=== PATIENT | female | born 1940 | race Caucasian/White ===

== ENCOUNTER 2018-09-12 10:01 | Inpatient (IN) | payer OTHER, MEDICARE ==
--- OUTSIDE RECORDS SUMMARY | 2018-09-12 10:03 | XMS REPORT ---
:1940 [facility] Address [address] [place] [address] Care Team Providers Name Role Phone Unavailable Unavailable Unavailable Payers Payer Name Policy Type Policy Number Effective Date Expiration Date Problems This patient has no known problems. Allergies, Adverse Reactions, Alerts Allergy Allergy Status Severity Reaction(s) Onset Inactive Treating Comments Name Type Date Date Clinician No Known DA Active U 2018-06 Allergies - 00:00:0 0 No Known DA Active U 2018-06 Allergies - 00:00:0 0 No Known DA Active U 2018-02 Allergies - 00:00:0 0 Medications This patient has no known medications.
[2018-09-12] MEDS ORDERED: NA CHLORIDE 0.9% 2,000 ML ONE (10:31)
[2018-09-12] MEDS ORDERED: ACETAMINOPHEN 500 MG TAB ONE (10:31)
[2018-09-12 10:34] LABS: Absolute Lymphocytes (CBC) 1.4 K/uL (0.7-4.9); Absolute Monocytes 1.8 K/uL (0.1-1.3); Basophils % 0.5 % (0-1.3); Lymphocytes % 8.6 % (15.3-44.8); MPV 8.8 fL (7.6-11.3); Monocytes % 10.9 % (3.3-12.3); RBC Red Blood Cell Count 4.96 M/uL (3.86-4.86)
[2018-09-12] MEDS ORDERED: LEVALBUTEROL 1.25 MG/3 ML NEB ONE (10:40)
[2018-09-12 10:41] LABS: Protime INR 1.08
[2018-09-12] MEDS ORDERED: CEFTRIAXONE/SWI 1gm 1 GM/10 ML SYR ONE (10:41)
--- NOTE | 2018-09-12 10:45 | RAD REPORT ---
EXAM DESCRIPTION: RAD - Chest Single View - 09/12/2018 10:38 am CLINICAL HISTORY: Cough, shortness of breath COMPARISON: November 2016 TECHNIQUE: AP portable chest image was obtained 1023 hours . FINDINGS: Lungs are clear. Baseline interstitial pattern not clearly different from comparison. Kandace r regions are similar to comparison. Heart and vasculature are normal. No measurable pleural effusion and no pneumothorax. No acute bony abnormality seen. No acute aortic findings suspected. IMPRESSION: No acute cardiopulmonary process.
--- NOTE | 2018-09-12 11:12 | EDPHYS ---
Physician Documentation [facility] Name: Era Agustin Age: 78 yrs Sex: Female : 1940 Arrival Date: 09/12/2018 Time: 10:06 Bed 4 Private MD: Bro Mcmahon T ED Physician Chandan Underwood HPI: 09/12 10:26 This 78 yrs old Female presents to ER via Wheelchair with complaints of Flu kdr Symptoms. 10:26 The patient has been feeling ill for about a week. Started with runny nose and kdr progressed to more upper respiratory symptoms.. Onset: The symptoms/episode began/occurred gradually, 1 week(s) ago. Severity of symptoms: At their worst the symptoms were severe incapacitating in the emergency department the symptoms are worse. The patient has not experienced similar symptoms in the past. The patient has been recently seen by a physician: the patient's primary care provider. Historical: - Allergies: 10:19 No Known Allergies; ch - Home Meds: 10:19 lovastatin 20 mg Oral tab 1 tab once daily [Active]; enalapril maleate 10 mg Oral tab 1 ch tab once daily [Active]; levothyroxine 175 mcg tab 1 tab once daily [Active]; meloxicam 15 mg oral tab 1 tab once daily [Active]; Mestinon 60 mg Oral tab 1 tab [Active]; montelukast 10 mg oral tab 1 tab once daily [Active]; estradiol 0.5 mg Oral tab [Active]; omeprazole 40 mg Oral cpDR 1 cap once daily [Active]; Zyrtec 10 mg Oral chew 1 tab once daily [Active]; [place] 10-325 mg Oral tab 1 tab every 4 hours [Active]; Xanax 0.5 mg Oral tab 1 tab 3 times per day [Active]; - PMHx: 10:19 Hypothyroidism; Back pain; Hypertension; Hyperlipidemia; ch - PSHx: 10:19 Thyroidectomy; Hysterectomy; back; Appendectomy; Knee surgery; ch - Immunization history:: Adult Immunizations up to date. - Social history:: Smoking status: Patient/guardian denies using tobacco. - Ebola Screening: : Patient negative for fever greater than or equal to 101.5 degrees Fahrenheit, and additional compatible Ebola Virus Disease symptoms Patient denies exposure to infectious person Patient denies travel to an Ebola-affected area in the 21 days before illness onset No symptoms or risks identified at this time. ROS: 10:26 Constitutional: Negative for weight loss - has had fever and chills Eyes: Negative for kdr injury, pain, redness, and discharge, ENT: Negative for injury, pain, and discharge, Neck: Negative for injury, pain, and swelling, Cardiovascular: Negative for chest pain, palpitations, and edema, Abdomen/GI: Negative for abdominal pain, nausea, vomiting, diarrhea, and constipation, Back: Negative for injury and pain, : Negative for injury, bleeding, discharge, and swelling, MS/Extremity: Negative for injury and deformity, Skin: Negative for injury, rash, and discoloration, Psych: Negative for depression, anxiety, suicide ideation, homicidal ideation, and hallucinations, Allergy/Immunology: Negative for hives, rash, and allergies, Endocrine: Negative for neck swelling, polydipsia, polyuria, polyphagia, and marked weight changes, Hematologic/Lymphatic: Negative for swollen nodes, abnormal bleeding, and unusual bruising. 10:26 Respiratory: Positive for cough, with yellow sputum, dyspnea on exertion, shortness of breath, wheezing, Negative for hemoptysis, orthopnea, pleurisy. Exam: 10:26 Constitutional: This is a well developed, well nourished patient who is awake, alert, kdr and in mild distress. Head/Face: Normocephalic, atraumatic. Eyes: Pupils equal round and reactive to light, extra-ocular motions intact. Lids and lashes normal. Conjunctiva and sclera are non-icteric and not injected. Cornea within normal limits. Periorbital areas with no swelling, redness, or edema. Neck: Trachea midline, no thyromegaly or masses palpated, and no cervical lymphadenopathy. Supple, full range of motion without nuchal rigidity, or vertebral point tenderness. No Meningismus. Chest/axilla: Normal chest wall appearance and motion. Nontender with no deformity. No lesions are appreciated. Cardiovascular: Regular rate and rhythm with a normal S1 and S2. No gallops, murmurs, or rubs. Normal PMI, no JVD. No pulse deficits. Abdomen/GI: Soft, non-tender, with normal bowel sounds. No distension or tympany. No guarding or rebound. No evidence of tenderness throughout. Back: No spinal tenderness. No costovertebral tenderness. Full range of motion. Skin: Warm, dry with normal turgor. Normal color with no rashes, no lesions, and no evidence of cellulitis. MS/ Extremity: Pulses equal, no cyanosis. Neurovascular intact. Full, normal range of motion. Neuro: Awake and alert, GCS 15, oriented to person, place, time, and situation. Cranial nerves II-XII grossly intact. Motor strength 5/5 in all extremities. Sensory grossly intact. Cerebellar exam normal. Normal gait. Psych: Awake, alert, with orientation to person, place and time. Behavior, mood, and affect are within normal limits. 10:26 Respiratory: mild respiratory distress is noted, Respirations: labored breathing, that is mild, Breath sounds: rales, decreased breath sounds, are heard in the left posterior lower lobe, rhonchi, that are mild, are located in both bases, are heard diffusely. Vital Signs: 10:17 Temp 101.5(TE); hb 10:19 BP 116 / 78; Pulse 136; Resp 38; Pulse Ox 82% on R/A; Weight 80.74 kg; Height 5 ft. 6 ch in. (167.64 cm); Pain 0/10; 10:50 BP 129 / 70; Pulse 134; Resp 25 S; Pulse Ox 100% on Nebulizer Mask; jl7 11:43 BP 119 / 60; Pulse 127; Resp 21 S; Temp 98.9(O); Pulse Ox 97% on 2 lpm NC; jl7 12:57 BP 90 / 65; Pulse 112; Resp 21 S; Pulse Ox 96% on 2 lpm NC; jl7 13:15 BP 97 / 50; Pulse 106; Resp 21 S; Pulse Ox 96% on 2 lpm NC; jl7 10:19 Body Mass Index 28.73 (80.74 kg, 167.64 cm) ch 10:19 pt placed on NC ch MDM: 11:11 Patient medically screened. kdr 11:11 Data reviewed: vital signs, lab test result(s), radiologic studies. Counseling: I had a kdr detailed discussion with the patient and/or guardian regarding: the historical points, exam findings, and any diagnostic results supporting the discharge/admit diagnosis, lab results, radiology results, the need for further work-up and treatment in the hospital. 09/12 10:18 Order name: Basic Metabolic Panel kdr 09/12 10:18 Order name: Blood Culture Adult (2) kdr 09/12 10:18 Order name: CBC with Diff kdr 09/12 10:18 Order name: Ckmb kdr 09/12 10:18 Order name: CPK kdr 09/12 10:18 Order name: Lactate kdr 09/12 10:18 Order name: LFT's; Complete Time: : kdr 09/12 10:18 Order name: Lipase; Complete Time: : kdr 09/12 10:18 Order name: Procalcitonin kdr 09/12 10:18 Order name: Protime (+inr); Complete Time: 11: kdr 09/12 10:18 Order name: Ptt, Activated; Complete Time: : kdr 09/12 10:18 Order name: Troponin (emerg Dept Use Only); Complete Time: : kdr 09/12 10:18 Order name: Urine Microscopic Only kdr 09/12 10:18 Order name: Basic Metabolic Panel; Complete Time: 11: EDMS 09/12 10:18 Order name: Chest Single View XRAY; Complete Time: 11: kdr 09/12 10:18 Order name: Accucheck; Complete Time: : kdr 09/12 10:18 Order name: Cardiac monitoring; Complete Time: : kdr 09/12 10:18 Order name: EKG - Nurse/Tech; Complete Time: : kdr 09/12 10:18 Order name: IV Saline Lock - Large Bore; Complete Time: : kdr 09/12 10:18 Order name: Blood Culture EDMS 09/12 10:18 Order name: CBC with Automated Diff; Complete Time: 11: EDMS 09/12 10:19 Order name: CKMB Creatine Kinase MB; Complete Time: 11: EDMS 09/12 10:19 Order name: Creatine Phosphokinase; Complete Time: 11: EDMS 09/12 10:19 Order name: Lactate; Complete Time: 11: EDMS 09/12 10:24 Order name: Flu; Complete Time: 11: kdr 09/12 10:18 Order name: Labs collected and sent; Complete Time: : kdr 09/12 10:18 Order name: O2 Per Protocol; Complete Time: : kdr 09/12 10:18 Order name: O2 Sat Monitoring; Complete Time: 10:33 kdr Administered Medications: 10:31 Drug: Tylenol 1000 mg Route: PO; jl7 11:46 Follow up: Response: No adverse reaction; Temperature is decreased jl7 10:32 Drug: NS 0.9% (30 ml/kg) 30 ml/kg Route: IV; Rate: bolus; Site: right antecubital; jl7 11:46 Follow up: IV Status: Completed infusion jl7 10:35 Drug: Xopenex (3) 1.25 mg Route: Inhalation; jl7 11:00 Follow up: Response: No adverse reaction jl7 10:42 Drug: Rocephin 1 grams Route: IV; Rate: calculated rate; Site: right antecubital; jl7 10:45 Follow up: Response: No adverse reaction; IV Status: Completed infusion jl7 10:47 Not Given (Duplicate Order): Rocephin - (cefTRIAXone) 1 grams IVPB once over 30 mins; jl7 (mix in 50 mL NS) Disposition: 09/12/18 11:11 Hospitalization ordered by Do Najera for Observation. Preliminary diagnosis are Acute upper respiratory infection, unspecified, Fever, unspecified, Cough, Other sepsis. - Bed requested for Telemetry/MedSurg (observation). - Status is Observation. tw2 - Condition is Fair. - Problem is new. - Symptoms have improved. UTI on Admission? No Signatures: Dispatcher [employer] EDMS Magaly Dave RN Muriel Blanco ch RN Chandan Mccall MD MD [facility] Anastasia Nowak RN RN tw2 Domingo Garcia RN RN jl7 Corrections: (The following items were deleted from the chart) 12:50 11:11 Hospitalization Ordered by Do Najera MD for Observation. Preliminary diagnosis dw is Acute upper respiratory infection, unspecified; Fever, unspecified; Cough; Other sepsis. Bed requested for Telemetry/MedSurg (observation). Status is Observation. Condition is Fair. Problem is new. Symptoms have improved. UTI on Admission? No. kdr 13:25 12:50 09/12/2018 11:11 Hospitalization Ordered by Do Najera MD for Observation. tw2 Preliminary diagnosis is Acute upper respiratory infection, unspecified; Fever, unspecified; Cough; Other sepsis. Bed requested for Telemetry/MedSurg (observation). Status is Observation. Condition is Fair. Problem is new. Symptoms have improved. UTI on Admission? No. dw
--- NOTE | 2018-09-12 11:12 | ER ---
Nurse's Notes [facility] Name: Era Agustin Age: 78 yrs Sex: Female : 1940 Arrival Date: 09/12/2018 Time: 10:06 Bed 4 Private MD: Bor Mcmahon T Diagnosis: Acute upper respiratory infection, unspecified;Fever, unspecified;Cough;Other sepsis Presentation: 09/12 10:14 Presenting complaint: Patient states: Dr. Mcmahon sent me over, he thinks I have the flu ch or pneumonia. runny nose for the past week, cough, productive now, generally not feeling well. body aches. but today I just cant breathe. Transition of care: patient was not received from another setting of care. Onset of symptoms was September 06, 2018. Risk Assessment: Do you want to hurt yourself or someone else? Patient reports no desire to harm self or others. Initial Sepsis Screen: Does the patient meet any 2 criteria? RR > 20 per min. HR > 90 bpm. Yes Does the patient have a suspected source of infection? Yes: Productive cough/pneumonia If YES to both, name of provider notified: Chandan Underwood MD. Care prior to arrival: None. 10:14 Method Of Arrival: Wheelchair ch 10:14 Acuity: CLARENCE 2 ch Historical: - Allergies: 10:19 No Known Allergies; ch - Home Meds: 10:19 lovastatin 20 mg Oral tab 1 tab once daily [Active]; enalapril maleate 10 mg Oral tab 1 ch tab once daily [Active]; levothyroxine 175 mcg tab 1 tab once daily [Active]; meloxicam 15 mg oral tab 1 tab once daily [Active]; Mestinon 60 mg Oral tab 1 tab [Active]; montelukast 10 mg oral tab 1 tab once daily [Active]; estradiol 0.5 mg Oral tab [Active]; omeprazole 40 mg Oral cpDR 1 cap once daily [Active]; Zyrtec 10 mg Oral chew 1 tab once daily [Active]; [place] 10-325 mg Oral tab 1 tab every 4 hours [Active]; Xanax 0.5 mg Oral tab 1 tab 3 times per day [Active]; - PMHx: 10:19 Hypothyroidism; Back pain; Hypertension; Hyperlipidemia; ch - PSHx: 10:19 Thyroidectomy; Hysterectomy; back; Appendectomy; Knee surgery; ch - Immunization history:: Adult Immunizations up to date. - Social history:: Smoking status: Patient/guardian denies using tobacco. - Ebola Screening: : Patient negative for fever greater than or equal to 101.5 degrees Fahrenheit, and additional compatible Ebola Virus Disease symptoms Patient denies exposure to infectious person Patient denies travel to an Ebola-affected area in the 21 days before illness onset No symptoms or risks identified at this time. Screenin:17 Abuse screen: Denies threats or abuse. Denies injuries from another. Nutritional hb screening: No deficits noted. Tuberculosis screening: No symptoms or risk factors identified. Fall Risk Total Roche Fall Scale indicates Low Risk Score (25-44 pts). Fall prevention measures have been instituted. Side Rails Up X 2 Frequent Obs/Assesments occuring As available Patient and Family Educated on Fall Prevention Program and strategies. Assessment: 10:20 General: Appears distressed, uncomfortable, Behavior is calm, cooperative, appropriate jl7 for age. Pain: Complains of pain in diaphragm Quality of pain is described as "It's sore every time I cough.". Neuro: Level of Consciousness is awake, alert, obeys commands, Oriented to person, place, time, situation. Cardiovascular: Heart tones present Patient's skin is warm and dry. Respiratory: Reports shortness of breath on exertion cough that is productive, persistent pain with cough Airway is patent Respiratory effort is even, labored, Respiratory pattern is symmetrical, tachypnea Breath sounds are coarse bilaterally. Breath sounds with crackles Breath sounds with rales in left posterior lower lobe. GI: No signs and/or symptoms were reported involving the gastrointestinal system. : No signs and/or symptoms were reported regarding the genitourinary system. EENT: No signs and/or symptoms were reported regarding the EENT system. Derm: Skin is pink, warm \\T\\ dry. Musculoskeletal: No signs and/or symptoms reported regarding the musculoskeletal system. 11:43 Reassessment: No changes from previously documented assessment. Patient and/or family jl7 updated on plan of care and expected duration. Pain level reassessed. Patient is alert, oriented x 3, equal unlabored respirations, skin warm/dry/pink. Patient states symptoms have improved. 12:45 Reassessment: Patient appears in no apparent distress at this time. Patient and/or jl7 family updated on plan of care and expected duration. Pain level reassessed. Patient is alert, oriented x 3, equal unlabored respirations, skin warm/dry/pink. Vital Signs: 10:17 Temp 101.5(TE); hb 10:19 BP 116 / 78; Pulse 136; Resp 38; Pulse Ox 82% on R/A; Weight 80.74 kg; Height 5 ft. 6 ch in. (167.64 cm); Pain 0/10; 10:50 BP 129 / 70; Pulse 134; Resp 25 S; Pulse Ox 100% on Nebulizer Mask; jl7 11:43 BP 119 / 60; Pulse 127; Resp 21 S; Temp 98.9(O); Pulse Ox 97% on 2 lpm NC; jl7 12:57 BP 90 / 65; Pulse 112; Resp 21 S; Pulse Ox 96% on 2 lpm NC; jl7 13:15 BP 97 / 50; Pulse 106; Resp 21 S; Pulse Ox 96% on 2 lpm NC; jl7 10:19 Body Mass Index 28.73 (80.74 kg, 167.64 cm) ch 10:19 pt placed on NC ED Course: 10:06 Patient arrived in ED. sb2 10:06 Bro Mcmahon MD is Private Physician. sb2 10:09 Chandan Underwood MD is Attending Physician. kdr 10:16 Triage completed. ch 10:17 Arm band placed on. hb 10:19 Patient placed in an exam room, on a stretcher, on oxygen, on athletic monitor, on pulse ch oximetry. 10:20 Patient has correct armband on for positive identification. Placed in gown. Bed in low jl7 position. Call light in reach. Side rails up X 1. patient monitor on. Pulse ox on. NIBP on. 10:20 Initial lab(s) drawn, by co, sent to lab. First set of blood cultures drawn by co. dh3 Inserted saline lock: 20 gauge in right antecubital area, using aseptic technique. Blood collected. 10:29 Domingo Garcia, RONDA is Primary Nurse. jl7 10:35 X-ray completed. Portable x-ray completed in exam room. Patient tolerated procedure jb2 well. 10:36 Chest Single View XRAY In Process Unspecified. EDMS 10:41 Second set of blood cultures drawn by me. Inserted saline lock: 22 gauge in right dh3 forearm, using aseptic technique. Blood collected. 11:01 Notified ED physician of a critical lab result(s). Lactate 3.3. sg 11:10 Do Najera MD is Hospitalizing Provider. kdr 13:15 No provider procedures requiring assistance completed. Patient admitted, IV remains in jl7 place. intact, No redness/swelling at site. Administered Medications: 10:31 Drug: Tylenol 1000 mg Route: PO; jl7 11:46 Follow up: Response: No adverse reaction; Temperature is decreased jl7 10:32 Drug: NS 0.9% (30 ml/kg) 30 ml/kg Route: IV; Rate: bolus; Site: right antecubital; jl7 11:46 Follow up: IV Status: Completed infusion jl7 10:35 Drug: Xopenex (3) 1.25 mg Route: Inhalation; jl7 11:00 Follow up: Response: No adverse reaction jl7 10:42 Drug: Rocephin 1 grams Route: IV; Rate: calculated rate; Site: right antecubital; jl7 10:45 Follow up: Response: No adverse reaction; IV Status: Completed infusion jl7 10:47 Not Given (Duplicate Order): Rocephin - (cefTRIAXone) 1 grams IVPB once over 30 mins; jl7 (mix in 50 mL NS) Outcome: 11:11 Decision to Hospitalize by Provider. kdr 13:15 Admitted to Tele accompanied by tech, family with patient, via wheelchair, room 430, [facility] with chart, Report called to RONDA Becker 13:15 Condition: stable 13:15 Discharge instructions given to patient, Instructed on the need for admit, Demonstrated understanding of instructions. 13:25 Patient left the ED. tw2 Signatures: Dispatcher [employer] EDMS Magaly Dave RN RONDA Gilbert Gutierrez RN RN Chandan Underwood MD MD [facility] Matias Marte jb2 Swetha Maria RN RN Anastasia Nowak RN RN tw2 Domingo Garcia RN RN jl7 Ashwini aClvillo 3 Ayla Gutiérrez sb2
[2018-09-12 11:15] LABS: ALT/SGPT 20 U/L (12-78); AST/SGOT 30 U/L (15-37); Albumin 3.8 g/dL (3.4-5.0); Alkaline Phosphatase 79 U/L (45-117); BUN Blood Urea Nitrogen 15 mg/dL (7-18); Bicarbonate 24 mmol/L (21-32); Bilirubin Direct 0.2 mg/dL (0-0.2); Bilirubin Total 0.6 mg/dL (0.2-1.0); CKMB Creatine Kinase MB < 1.0 ng/mL (0.3-3.6); Creatine Phosphokinase 204 U/L (26-192); Glucose Level 153 mg/dL (74-106); Lipase 65 U/L (73-393); Potassium 3.6 mmol/L (3.5-5.1); Protein, Total 7.7 g/dL (6.4-8.2); Sodium Level 140 mmol/L (136-145); Troponin (Emerg Dept Use Only) < 0.02 ng/mL (0.0-0.045)
[2018-09-12] MEDS ORDERED: POTASSIUM CL SA 10 MEQ TAB PO ONE (13:47)
[2018-09-12] MEDS: IPRATROPIUM BROM 0.5MG/2.5ML NEB SCH ×2 (14:00→20:20)
[2018-09-12] MEDS: LEVALBUTEROL 1.25 MG/3 ML NEB NEB SCH ×2 (14:00→20:20)
[2018-09-12 14:02] VITALS: BMI 29.2
[2018-09-12] MEDS: NA CHLORIDE 0.9% 1,000 ML IV SCH (15:34)
[2018-09-12] MEDS ORDERED: ACETAMINOPHEN 500 MG TAB PO ONE (18:47)
[2018-09-12] MEDS: CETIRIZINE HCL 5 MG TABLET PO SCH (18:52)
[2018-09-12 20:10] LABS: Urine Bacteria <20 /HPF (<20); Urine Culture Reflex Order NOT NEEDED; Urine RBC <5 /HPF (NONE SEEN)
[2018-09-12] MEDS: PYRIDOSTIGMINE 60 MG TABLET PO SCH (21:58)
[2018-09-12] MEDS: ATORVASTATIN 10 MG TAB PO SCH (21:58)
[2018-09-12] MEDS: ALPRAZOLAM 1 MG TABLET PO SCH (23:15)
--- NOTE | 2018-09-12 23:16 | P.HP ---
Certification for Inpatient Patient admitted to: Inpatient With expected LOS: >2 Midnights Practitioner: I am a practitioner with admitting privileges, knowledge of patient current condition, hospital course, and medical plan of care. Services: Services provided to patient in accordance with Admission requirements found in Title 42 Section 412.3 of the Code of Federal Regulations Patient History Date of Service: 09/12/18 Reason for admission: sepsis, pneumonia History of Present Illness: Ms Agustin is a 78 years old woman with history of hypothyroidism, HTN, who start about 4 days ago with cough, productive with yellowish secretions, later SOB and subjective fever. In ER the patient was febrile 101.5, O2 Sat 82% on RA , BP on the lower side, she looks unconfortable. Lab work shows leukocytosis with elevated lactate and normal procalcitonin. Influenza negative. CXR radiology reported no acute infiltrate. Allergies No Known Drug Allergies Allergy (Verified 02/01/16 11:27) Unknown Home medications list reviewed: Yes Home Medications: Alprazolam [Alprazolam ER] 1 mg PO BEDTIME 04/05/12 Cetirizine HCl [Zyrtec] 10 mg PO DAILY 6PM 04/05/12 Enalapril Maleate 10 mg PO DAILY 04/05/12 Estradiol 0.5 mg PO DAILY 04/05/12 Lovastatin 20 mg PO DAILY 04/05/12 Meloxicam 15 mg PO DAILY 04/05/12 Omeprazole 40 mg PO DAILY 04/05/12 Pyridostigmine [place] [Mestinon*] 60 mg PO BID 04/05/12 Ca Carbonate/Vitamin D3/Vit K [Viactiv Tablet Chew] 2 each PO DAILY 02/01/16 Iron 27 mg PO DAILY 6PM 02/01/16 Montelukast [Singulair] 10 mg PO DAILY 6PM 02/01/16 Vit A/Vit C/Vit E/Zinc/Copper [Icaps Areds Softgel] 1 each PO DAILY 02/01/16 Hydrocodone 10/APAP 325 [[place] 10/325*] 0.5 tab PO QIDP PRN 09/12/18 Levothyroxine Sodium [Synthroid] 175 mcg PO DAILY 09/12/18 - Past Medical/Surgical History Has patient received pneumonia vaccine in the past: Yes Diabetic: No -: Hypertension -: GERD -: Anxiety -: Appendectomy 1968 -: Hysterectomy 1970 -: Thyroidectomy 1974 -: Back Surgery 1979 -: Bilateral Cataract Surgery 2007 -: Lapband 2014 -: Septoplasty 2016 -: Left Knee Replacement 2012 - Family History Family History: Reviewed- Non-Contributory - Social History Smoking Status: Former smoker Alcohol use: Yes CD- Drugs: No Caffeine use: Yes Place of Residence: Home Review of Systems 10-point ROS is otherwise unremarkable Physical Examination - Vital Signs Temperature: 98.9 F Blood Pressure: 138/55 Pulse: 78 Respirations: 18 Pulse Ox (%): 95 - Physical Exam General: Alert, In no apparent distress HEENT: Atraumatic, PERRLA, Mucous membr. moist/pink, EOMI, Sclerae nonicteric Neck: Supple, 2+ carotid pulse no bruit, No LAD, Without JVD or thyroid abnormality Respiratory: Normal air movement, Rhonchi/gurgles (bilateral) Cardiovascular: Regular rate/rhythm, Normal S1 S2 Gastrointestinal: Normal bowel sounds, No tenderness Musculoskeletal: No tenderness Integumentary: No rashes Neurological: Normal speech, Normal strength at 5/5 x4 extr, Normal tone, Normal affect Lymphatics: No axilla or inguinal lymphadenopathy - Studies Laboratory Data (last 24 hrs) 09/12/18 10:20: PT 12.7 H, INR 1.08, APTT 31.8 09/12/18 10:20: WBC 16.3 H, Hgb 15.4 H, Hct 46.0 H, Plt Count 255 09/12/18 10:20: Sodium 140, Potassium 3.6, BUN 15, Creatinine 1.22, Glucose 153 H, Total Bilirubin 0.6, AST 30, ALT 20, Alkaline Phosphatase 79, Lipase 65 L Microbiology Data (last 24 hrs): 09/12/18 10:24 Nasopharnyx Influenza Type A Antigen Screen - Final 09/12/18 10:24 Nasopharnyx Influenza Type B Antigen Screen - Final Assessment and Plan - Problems (Diagnosis) (1) Acute respiratory failure Current Visit: Yes Status: Acute Qualifiers: Respiratory failure complication: hypoxia Qualified Code(s): J96.01 - Acute respiratory failure with hypoxia (2) Pneumonia Current Visit: Yes Status: Acute Qualifiers: Pneumonia type: due to unspecified organism Laterality: unspecified laterality Lung location: unspecified part of lung Qualified Code(s): J18.9 - Pneumonia, unspecified organism (3) HTN (hypertension) Current Visit: Yes Status: Acute Qualifiers: Hypertension type: essential hypertension Qualified Code(s): I10 - Essential (primary) hypertension (4) Hypothyroidism Current Visit: Yes Status: Acute Qualifiers: Hypothyroidism type: unspecified Qualified Code(s): E03.9 - Hypothyroidism , unspecified (5) Sepsis Current Visit: Yes Status: Acute Qualifiers: Sepsis type: sepsis due to unspecified organism Qualified Code(s): A41.9 - Sepsis, unspecified organism - Plan Admit the patient due to sepsis, acute respiratory failure, pneumonia, already started on empiric antibiotic treatment, she has IV fluid running, blood and sputum cultures in process. - Advance Directives Does patient have a Living Will: No Does patient have a Durable POA for Healthcare: No - Code Status/Comfort Care Code Status Assessed: Yes Code Status: Full Code
[2018-09-13] MEDS: LEVALBUTEROL 1.25 MG/3 ML NEB NEB SCH ×4 (02:30→20:30)
[2018-09-13] MEDS: IPRATROPIUM BROM 0.5MG/2.5ML NEB SCH ×4 (02:30→20:30)
[2018-09-13] MEDS: NA CHLORIDE 0.9% 1,000 ML IV SCH ×3 (04:20→18:55)
[2018-09-13] MEDS: PANTOPRAZOLE 40MG TABLET PO SCH (05:31)
[2018-09-13] MEDS ORDERED: LEVOTHYROXINE SOD 0.075 MG TAB PO SCH (06:00)
[2018-09-13] MEDS ORDERED: LEVOTHYROXINE SOD 0.1 MG TAB PO SCH (06:00)
[2018-09-13 06:01] LABS: Absolute Lymphocytes (CBC) 1.1 K/uL (0.7-4.9); Absolute Monocytes 1.4 K/uL (0.1-1.3); Absolute Neutrophil 9.8 K/uL (1.8-8.0); Basophils % 0.2 % (0-1.3); MPV 8.9 fL (7.6-11.3); Monocytes % 11.5 % (3.3-12.3); RBC Red Blood Cell Count 4.06 M/uL (3.86-4.86)
[2018-09-13 06:20] LABS: Albumin 3.2 g/dL (3.4-5.0); Bilirubin Total 0.4 mg/dL (0.2-1.0); Phosphorus 1.6 mg/dL (2.5-4.9); Potassium 3.2 mmol/L (3.5-5.1); Protein, Total 6.5 g/dL (6.4-8.2)
--- NOTE | 2018-09-13 07:49 | EKG ---
Test Date: 2018-09-12 Test Time: 10:15:47 Test Deck Supervisor: SWG MEASUREMENT RESULTS: Intervals: Rate: 137 PA: 144 QRSD: 78 QT: 280 QTc: 422 Ambler: P: 71 PA: 144 QRS: -24 T: 78 INTERPRETIVE STATEMENTS: Sinus tachycardia Otherwise normal ECG Compared to ECG 02/01/2016 11:30:43 Sinus bradycardia no longer present Electronically Signed On 09-13-18 07:46:26 STAIN REMOVER by Krishan White
[2018-09-13] MEDS ORDERED: POTASSIUM 25 MEQ EFFERV TAB PO ONE (08:00)
[2018-09-13] MEDS ORDERED: ENALAPRIL 10 MG TAB PO SCH (09:00)
[2018-09-13] MEDS ORDERED: ESTRADIOL 0.5 MG PO SCH (09:00)
[2018-09-13] MEDS ORDERED: HOME MED 1 EA UNK (Levothyroxine Sodium [Synthroid] 175 MCG) PO SCH (09:00)
[2018-09-13] MEDS ORDERED: HOME MED 1 EA UNK (Lovastatin [Lovastatin] 20 MG) PO SCH (09:00)
[2018-09-13] MEDS: POTASS/SODIUM PHOSPHATE 1 PKT POWD.PACK PO SCH ×3 (09:43→11:59)
[2018-09-13] MEDS: PYRIDOSTIGMINE 60 MG TABLET PO SCH ×2 (09:43→22:14)
--- NOTE | 2018-09-13 11:27 | RAD REPORT ---
EXAM DESCRIPTION: RAD - Chest Pa And Lat (2 Views) - 09/13/2018 9:41 am CLINICAL HISTORY: pna management Chest pain. COMPARISON: Chest Single View dated 09/12/2018; Chest Pa And Lat (2 Views) dated 11/13/2016 FINDINGS: Left lung base posteriorly and the lingular lung opacities are present compatible with pne umonia. Findings appear mildly progressive since the comparative chest radiograph. The heart is mildl y prominent size. No displaced fractures.
[2018-09-13] MEDS: METOPROLOL TAR 25 MG TAB PO SCH (15:59)
[2018-09-13] MEDS: CEFTRIAXONE/SWI 1gm 1 GM/10 ML SYR IV SCH (16:05)
--- NOTE | 2018-09-13 17:46 | P.PN ---
Subjective Date of Service: 09/13/18 Primary Care Provider: Dr. Mcmahon Chief Complaint: sepsis, pneumonia Subjective: No new changes Patient seen and examined at bedside. No family at bedside. Chart reviewed and case discussed with nursing staff. Review of Systems 10-point ROS is otherwise unremarkable Physical Examination - Vital Signs Temperature: 97.9 F Blood Pressure: 120/60 Pulse: 100 Respirations: 18 Pulse Ox (%): 96 - Physical Exam General: Alert, Mild distress HEENT: Atraumatic, PERRLA, EOMI Neck: Supple, JVD not distended Respiratory: Clear to auscultation bilaterally, Normal air movement Cardiovascular: Normal S1 S2, Irregular heart rate/rhythm (Irregularly irregular ) Gastrointestinal: Normal bowel sounds, No tenderness Musculoskeletal: No tenderness Integumentary: No rashes Neurological: Normal speech, Normal tone, Normal affect Lymphatics: No axilla or inguinal lymphadenopathy Assessment And Plan - Current Problems (Diagnosis) (1) Atrial fibrillation Current Visit: Yes Status: Acute (2) Acute respiratory failure Current Visit: Yes Status: Acute Qualifiers: Respiratory failure complication: hypoxia Qualified Code(s): J96.01 - Acute respiratory failure with hypoxia (3) HTN (hypertension) Current Visit: Yes Status: Acute Qualifiers: Hypertension type: essential hypertension Qualified Code(s): I10 - Essential (primary) hypertension (4) Hypothyroidism Current Visit: Yes Status: Acute Qualifiers: Hypothyroidism type: unspecified Qualified Code(s): E03.9 - Hypothyroidism , unspecified (5) Pneumonia Current Visit: Yes Status: Acute Qualifiers: Pneumonia type: due to unspecified organism Laterality: unspecified laterality Lung location: unspecified part of lung Qualified Code(s): J18.9 - Pneumonia, unspecified organism (6) Sepsis Current Visit: Yes Status: Acute Qualifiers: Sepsis type: sepsis due to unspecified organism Qualified Code(s): A41.9 - Sepsis, unspecified organism - Plan Patient Problems: Sepsis (Acute) A41.9 improving Pneumonia (Acute) J18.9 Acute respiratory failure (Acute) J96.00 Improving. This is likely secondary to pneumonia Continue IV antibiotics, breathing treatments and oxygen as needed. Will continue to wean off oxygen. Atrial fibrillation (Acute) I48.91 New diagnoses. Patient without any history of heart disease or irregular heart beats. Check TSH. This could be secondary to his sepsis. Metoprolol for rate control Continue IV fluids HTN (hypertension) (Acute) I10 Blood pressure elevated. Will continue to adjust medications. Hypothyroidism (Acute) E03.9 Continue home medications. TSH/T4 pending DVT prophylaxis: Lovenox GI prophylaxis: Protonix Diet: Heart healthy Disposition: Pending symptomatic improvement. Continue IV fluids, IV antibiotics, breathing treatments and oxygen as needed.
[2018-09-13] MEDS ORDERED: HOME MED 1 EA UNK (Cetirizine Hcl [Zyrtec] 10 MG) PO SCH (18:00)
[2018-09-13] MEDS ORDERED: IRON 27 MG PO SCH (18:00)
[2018-09-13 18:31] LABS: Potassium 3.5 mmol/L (3.5-5.1); T4,Total 12.4 ug/dL (4.8-13.9); Thyroid Stimulating Hormone 0.263 uIU/mL (0.360-3.740)
[2018-09-13] MEDS: CETIRIZINE HCL 5 MG TABLET PO SCH (18:56)
[2018-09-13] MEDS: AZITHROMYCIN IV 500 MG in NA CHLORIDE 0.9% 250 ML IVPB SCH (18:56)
[2018-09-13] MEDS: MONTELUKAST 10 MG TAB PO SCH (19:06)
[2018-09-13] MEDS ORDERED: POTASSIUM CL SA 10 MEQ TAB PO ONE (20:02)
[2018-09-13] MEDS: ATORVASTATIN 10 MG TAB PO SCH (22:15)
[2018-09-13] MEDS: ALPRAZOLAM 1 MG TABLET PO SCH (22:15)
[2018-09-13] MEDS: ACETAMINOPHEN 325 MG TABLET PO PRN (22:18)
[2018-09-13] MEDS ORDERED: FUROSEMIDE 20 MG/ 2ML VIAL IV ONE (22:48)
[2018-09-13] MEDS ORDERED: MORPHINE 2 MG/ML SYR IV ONE (22:48)
[2018-09-13] MEDS ORDERED: METOPROLOL TARTRATE 5 MG/5 ML INJ IV STA (23:23)
[2018-09-14] MEDS: IPRATROPIUM BROM 0.5MG/2.5ML NEB SCH ×4 (01:53→20:00)
[2018-09-14] MEDS: LEVALBUTEROL 1.25 MG/3 ML NEB NEB SCH ×4 (01:53→20:00)
[2018-09-14] MEDS ORDERED: METOPROLOL TARTRATE 5 MG/5 ML INJ IV ONE ×2 (02:14→22:40)
[2018-09-14] MEDS ORDERED: MORPHINE 4 MG/ML SYR ONE (02:29)
[2018-09-14] MEDS ORDERED: METOPROLOL TARTRATE 5 MG/5 ML INJ IV STA ×2 (02:45→22:20)
[2018-09-14] MEDS ORDERED: METHYLPREDNISOLONE 125 MG INJ IV ONE (06:00)
[2018-09-14] MEDS ORDERED: ENOXAPARIN 80 MG/0.8 ML SQ ONE (06:00)
[2018-09-14] MEDS: PANTOPRAZOLE 40MG TABLET PO SCH (07:06)
[2018-09-14] MEDS: METOPROLOL TAR 25 MG TAB PO SCH ×2 (07:07→16:06)
[2018-09-14 07:10] LABS: Phosphorus 2.3 mg/dL (2.5-4.9); Potassium 3.5 mmol/L (3.5-5.1)
[2018-09-14 07:20] LABS: Magnesium 2.1 mg/dL (1.8-2.4); Thyroid Stimulating Hormone 0.246 uIU/mL (0.360-3.740)
[2018-09-14] MEDS ORDERED: POTASSIUM 25 MEQ EFFERV TAB PO ONE (09:02)
[2018-09-14] MEDS: PYRIDOSTIGMINE 60 MG TABLET PO SCH ×2 (12:05→21:32)
[2018-09-14] MEDS: POTASS/SODIUM PHOSPHATE 1 PKT POWD.PACK PO SCH ×3 (12:06→14:15)
--- NOTE | 2018-09-14 12:14 | RAD REPORT ---
EXAM DESCRIPTION: Dk Single View09/13/2018 11:17 pm CLINICAL HISTORY: Shortness of breath COMPARISON: September 13 FINDINGS: Mild bibasilar lung opacities. Upper lobes appear clear. The heart is normal size IMPRESSION: Mild bibasilar lung opacities may represent pneumonia
--- NOTE | 2018-09-14 12:14 | RAD REPORT ---
EXAM DESCRIPTION: CT - Thorax W/ Con - 09/14/2018 11:27 am CLINICAL HISTORY: Shortness of breath COMPARISON: None TECHNIQUE: Computed axial tomography of the chest was obtained. 100 cc Isovue 300 was administered i ntravenously. All CT scans are performed using dose optimization technique as appropriate and may include automated exposure control or mA/KV adjustment according to patient size. FINDINGS: Mild right lower lobe consolidation. Minimal tree-in-bud opacities within the left lingula . Minimal left lower lobe opacities Mild mediastinal and hilar lymphadenopathy A pleural effusion is not present. A pericardial effusion is not seen. IMPRESSION: Mild bilateral pulmonary opacities likely represent pneumonia Mild mediastinal and hilar lymphadenopathy likely reactive in nature. Follow up CT chest in 3 months is recommended to assess stability/ resolution
--- NOTE | 2018-09-14 12:37 | P.PN ---
Subjective Date of Service: 09/14/18 Primary Care Provider: Dr. Mcmahon Chief Complaint: sepsis, pneumonia Subjective: No C/O voiced, Improving Patient seen and examined at bedside. No family at bedside. Chart reviewed and case discussed with nursing staff. Reports breathing better Continues to be in AFib. Denies any chest pain, palpitations, dizziness, vision changes, speech changes Review of Systems 10-point ROS is otherwise unremarkable Physical Examination - Vital Signs Temperature: 99.2 F Blood Pressure: 132/74 Pulse: 129 Respirations: 18 Pulse Ox (%): 95 - Physical Exam General: Alert, In no apparent distress, Oriented x3 HEENT: Atraumatic, PERRLA, EOMI Neck: Supple, JVD not distended Respiratory: Clear to auscultation bilaterally, Normal air movement Cardiovascular: Irregular heart rate/rhythm (Irregularly irregular) Gastrointestinal: Normal bowel sounds, No tenderness Musculoskeletal: No tenderness Integumentary: No rashes Neurological: Normal speech, Normal tone, Normal affect Lymphatics: No axilla or inguinal lymphadenopathy Assessment And Plan - Current Problems (Diagnosis) (1) Atrial fibrillation Current Visit: Yes Status: Acute (2) Acute respiratory failure Current Visit: Yes Status: Acute Qualifiers: Respiratory failure complication: hypoxia Qualified Code(s): J96.01 - Acute respiratory failure with hypoxia (3) HTN (hypertension) Current Visit: Yes Status: Acute Qualifiers: Hypertension type: essential hypertension Qualified Code(s): I10 - Essential (primary) hypertension (4) Hypothyroidism Current Visit: Yes Status: Acute Qualifiers: Hypothyroidism type: unspecified Qualified Code(s): E03.9 - Hypothyroidism , unspecified (5) Pneumonia Current Visit: Yes Status: Acute Qualifiers: Pneumonia type: due to unspecified organism Laterality: unspecified laterality Lung location: unspecified part of lung Qualified Code(s): J18.9 - Pneumonia, unspecified organism (6) Sepsis Current Visit: Yes Status: Acute Qualifiers: Sepsis type: sepsis due to unspecified organism Qualified Code(s): A41.9 - Sepsis, unspecified organism - Plan Patient Problems: Sepsis (Acute) A41.9 improving Pneumonia (Acute) J18.9 Acute respiratory failure (Acute) J96.00 Improving. This is likely secondary to pneumonia Continue IV antibiotics, breathing treatments and oxygen as needed. Will continue to wean off oxygen. CT scan done, consistent with bilateral pneumonia. Atrial fibrillation (Acute) I48.91 New diagnoses. Patient without any history of heart disease or irregular heart beats. TSH low. This could be secondary to the sepsis. Metoprolol for rate control Continue IV fluids Cardiology consulted HTN (hypertension) (Acute) I10 Stable, Will continue to monitor and adjust medications as needed. Hypothyroidism (Acute) E03.9 Continue home medications. TSH low. Will decrease Synthroid dosage 100 mcg daily. DVT prophylaxis: Lovenox GI prophylaxis: Protonix Diet: Heart healthy Disposition: Pending symptomatic improvement. Continue IV fluids, IV antibiotics, breathing treatments and oxygen as needed.
--- NOTE | 2018-09-14 13:54 | EKG ---
Test Date: 2018-09-14 Test Time: 02:28:48 Fixed Assets Accountant: NORA MEASUREMENT RESULTS: Intervals: Rate: 129 [place]: QRSD: 76 QT: 326 QTc: 477 [place]: P: TX: QRS: -9 T: 61 INTERPRETIVE STATEMENTS: Atrial fibrillation with rapid ventricular response Low voltage QRS Cannot rule out Anterior infarct, age undetermined Abnormal ECG Compared to ECG 09/13/2018 07:46:32 Myocardial infarct finding now present ST (T wave) deviation no longer present Electronically Signed On 09-14-18 13:53:35 CARE TRAINER by Krishan White
--- NOTE | 2018-09-14 13:59 | EKG ---
Test Date: 2018-09-13 Test Time: 07:46:32 Analytical Clerk: SANDY MEASUREMENT RESULTS: Intervals: Rate: 147 IN: QRSD: 86 QT: 312 QTc: 488 [place]: P: IN: QRS: -10 T: 94 INTERPRETIVE STATEMENTS: Atrial fibrillation with rapid ventricular response Low voltage QRS Nonspecific ST and T wave abnormality, probably digitalis effect Abnormal ECG Compared to ECG 09/12/2018 10:15:47 Low QRS voltage now present ST (T wave) deviation now present Sinus tachycardia no longer present Electronically Signed On 09-14-18 13:54:44 SPORTS BOOK SERVER by Krishan White
[2018-09-14] MEDS: CEFTRIAXONE/SWI 1gm 1 GM/10 ML SYR IV SCH (16:06)
[2018-09-14] MEDS: AZITHROMYCIN IV 500 MG in NA CHLORIDE 0.9% 250 ML IVPB SCH (17:04)
[2018-09-14] MEDS: CETIRIZINE HCL 5 MG TABLET PO SCH (17:04)
[2018-09-14] MEDS: MONTELUKAST 10 MG TAB PO SCH (17:06)
[2018-09-14] MEDS: ATORVASTATIN 10 MG TAB PO SCH (21:32)
[2018-09-14] MEDS: ALPRAZOLAM 1 MG TABLET PO SCH (21:32)
[2018-09-15] MEDS: LEVALBUTEROL 1.25 MG/3 ML NEB NEB SCH ×4 (02:00→20:13)
[2018-09-15] MEDS: IPRATROPIUM BROM 0.5MG/2.5ML NEB SCH ×4 (02:00→20:13)
[2018-09-15] MEDS: METOPROLOL TAR 25 MG TAB PO SCH ×2 (06:04→18:39)
[2018-09-15] MEDS: LEVOTHYROXINE SOD 0.1 MG TAB PO SCH (06:04)
[2018-09-15] MEDS: ACETAMINOPHEN 325 MG TABLET PO PRN (06:10)
[2018-09-15 06:20] LABS: Phosphorus 3.9 mg/dL (2.5-4.9); Potassium 3.3 mmol/L (3.5-5.1)
[2018-09-15] MEDS ORDERED: POTASSIUM 25 MEQ EFFERV TAB PO ONE (09:00)
[2018-09-15] MEDS: PANTOPRAZOLE 40MG TABLET PO SCH (09:19)
[2018-09-15] MEDS: PYRIDOSTIGMINE 60 MG TABLET PO SCH ×2 (09:20→20:44)
[2018-09-15 09:58] LABS: Absolute Lymphocytes (CBC) 1.3 K/uL (0.7-4.9); Absolute Monocytes 1.1 K/uL (0.1-1.3); Absolute Neutrophil 13.2 K/uL (1.8-8.0); Basophils % 0.1 % (0-1.3); Hematocrit 39.3 % (36.0-45.0); Lymphocytes % 8.2 % (15.3-44.8); MPV 9.2 fL (7.6-11.3); Monocytes % 7.1 % (3.3-12.3); RBC Red Blood Cell Count 4.31 M/uL (3.86-4.86)
[2018-09-15] MEDS: CEFTRIAXONE/SWI 1gm 1 GM/10 ML SYR IV SCH (17:09)
[2018-09-15] MEDS: MONTELUKAST 10 MG TAB PO SCH (17:09)
[2018-09-15] MEDS: CETIRIZINE HCL 5 MG TABLET PO SCH (17:09)
[2018-09-15] MEDS: AZITHROMYCIN IV 500 MG in NA CHLORIDE 0.9% 250 ML IVPB SCH (17:10)
--- NOTE | 2018-09-15 19:12 | P.PN ---
Subjective Date of Service: 09/15/18 Primary Care Provider: Dr. Mcmahon Chief Complaint: sepsis, pneumonia Subjective: Improving Patient seen and examined at bedside. No family at bedside. Chart reviewed and case discussed with nursing staff. Reports breathing better Converted to Normal sinus rhythm. Denies any chest pain, palpitations, dizziness, vision changes, speech changes Review of Systems 10-point ROS is otherwise unremarkable Physical Examination - Vital Signs Temperature: 98.3 F Blood Pressure: 124/61 Pulse: 98 Respirations: 17 Pulse Ox (%): 94 - Physical Exam General: Alert, In no apparent distress, Oriented x3 HEENT: Atraumatic, PERRLA, EOMI Neck: Supple, JVD not distended Respiratory: Crackles/rales, Expiratory wheezes Cardiovascular: Regular rate/rhythm, Normal S1 S2 Gastrointestinal: Normal bowel sounds, No tenderness Musculoskeletal: No tenderness Integumentary: No rashes Neurological: Normal speech, Normal tone, Normal affect Lymphatics: No axilla or inguinal lymphadenopathy Assessment And Plan - Current Problems (Diagnosis) (1) Atrial fibrillation Current Visit: Yes Status: Acute (2) Acute respiratory failure Current Visit: Yes Status: Acute Qualifiers: Respiratory failure complication: hypoxia Qualified Code(s): J96.01 - Acute respiratory failure with hypoxia (3) HTN (hypertension) Current Visit: Yes Status: Acute Qualifiers: Hypertension type: essential hypertension Qualified Code(s): I10 - Essential (primary) hypertension (4) Hypothyroidism Current Visit: Yes Status: Acute Qualifiers: Hypothyroidism type: unspecified Qualified Code(s): E03.9 - Hypothyroidism , unspecified (5) Pneumonia Current Visit: Yes Status: Acute Qualifiers: Pneumonia type: due to unspecified organism Laterality: unspecified laterality Lung location: unspecified part of lung Qualified Code(s): J18.9 - Pneumonia, unspecified organism (6) Sepsis Current Visit: Yes Status: Acute Qualifiers: Sepsis type: sepsis due to unspecified organism Qualified Code(s): A41.9 - Sepsis, unspecified organism - Plan Patient Problems: Sepsis (Acute) A41.9 improving Pneumonia (Acute) J18.9 Acute respiratory failure (Acute) J96.00 Improving. This is likely secondary to pneumonia Continue IV antibiotics, breathing treatments and oxygen as needed. Will continue to wean off oxygen. CT scan done, consistent with bilateral pneumonia. Atrial fibrillation (Acute) I48.91: Converted back to NSR New diagnoses. Patient without any history of heart disease or irregular heart beats. TSH low. This could be secondary to the sepsis. Metoprolol for rate control Continue IV fluids Cardiology consulted. ECHO pending. HTN (hypertension) (Acute) I10 Stable, Will continue to monitor and adjust medications as needed. Hypothyroidism (Acute) E03.9 Continue home medications. TSH low. Will decrease Synthroid dosage 100 mcg daily. DVT prophylaxis: Lovenox GI prophylaxis: Protonix Diet: Heart healthy Disposition: Pending symptomatic improvement. Continue IV fluids, IV antibiotics, breathing treatments and oxygen as needed.
[2018-09-15] MEDS: ATORVASTATIN 10 MG TAB PO SCH (20:44)
[2018-09-15] MEDS: ALPRAZOLAM 1 MG TABLET PO SCH (20:44)
--- NOTE | 2018-09-15 22:08 | PN ---
Ms. Agustin was admitted by Dr. Najera on 09/12/2018 for pneumonia, developed atrial fibrillation. I s aw her on 09/14/2018. She was getting a low-dose beta-silvino. Today, she is back in sinus rhythm. An echocardiogram is pending. I think her atrial fibrillation may have been caused by her pneumonia . She does have a history of hypertension and dyslipidemia, and she definitely has a high CHADS scor e. Since she developed this with her pneumonia, we may just observe her and put her on aspirin rathe r than an anticoagulant for now low, but I will see what her echocardiogram shows prior to making fin al decisions. I will make sure she will see us in the office after she goes home. She will need a s tress test as an outpatient. DEVANG/FAUSTO Voice ID: [id number] Report ID: [id number]
--- NOTE | 2018-09-15 22:38 | CON ---
Date of Consultation: 09/14/[address] Najera on 09/12/2018. I saw the patient on 09/14/2018. Reason For Consultation: Atrial fibrillation. History Of Present Illness: Ms. Agustin is a 78-year-old white woman with no cardiac history in the p ast, has a history of hypertension, dyslipidemia, and hypothyroidism, was admitted for pneumonia by c hest x-ray and CT scan, and was actually on telemetry, and went into atrial fibrillation from sinus r hythm without any symptoms from her atrial fibrillation. No hemodynamic compromise. Past Medical History: As stated above. Allergies: NONE. Review of Systems: Negative. Social History: Negative. Family History: Negative. Medications: At home include Xanax, enalapril, Synthroid, lovastatin, and Prilosec. The patient sees Dr. Mcmahon as a primary care. Physical Examination: Vital Signs: Stable. She was in atrial fibrillation at a rate of 85. Afebrile. HEENT: Negative. Neck: Supple with no bruit. Chest: Clear. Cardiac: Revealed atrial fibrillation. Abdomen: Benign. Extremities: Revealed no clubbing, cyanosis, or edema. Diagnostic Data: Fairly unremarkable except for the pneumonia. Impression And Plan: 1.Paroxysmal atrial fibrillation, may have been due to hypoxia and pneumonia. 2.Anxiety, on Xanax. 3.Enalapril for hypertension. 4.Hypothyroidism, on Synthroid. 5.Dyslipidemia, on lovastatin. 6.Gastroesophageal reflux disease, on Prilosec. I agree with an echocardiogram. I think we can have her on a low-dose beta silvino and an aspirin. She has a rather high CHADS score with hypertension, dyslipidemia in her age, and may be a candidate for some of the new anticoagulants. However, since this happened with pneumonia, we may have to just observe her and make sure she does not have a recurrence. I will see what the echocardiogram shows prior to making decision on anticoagulation. Certainly down the road depending what her rhythm does, we could always get an event monitor and see what she does as an outpatient. She will also need an outpatient stress test eventually, and I will make arrangements for all that. DEVANG/FAUSTO Voice ID: [id number] Report ID: [id number]
[2018-09-16] MEDS: LEVALBUTEROL 1.25 MG/3 ML NEB NEB SCH ×4 (03:16→20:10)
[2018-09-16] MEDS: IPRATROPIUM BROM 0.5MG/2.5ML NEB SCH ×4 (03:16→20:10)
[2018-09-16 04:20] LABS: RBC Red Blood Cell Count 4.49 M/uL (3.86-4.86)
[2018-09-16 04:21] LABS: Absolute Lymphocytes (CBC) 3.2 K/uL (0.7-4.9); Absolute Monocytes 1.2 K/uL (0.1-1.3); Absolute Neutrophil 8.4 K/uL (1.8-8.0); Basophils % 0.7 % (0-1.3); Eosinophils % 0.4 % (0-4.4); Lymphocytes % 24.6 % (15.3-44.8); MPV 9.1 fL (7.6-11.3)
[2018-09-16 04:42] LABS: Potassium 3.5 mmol/L (3.5-5.1)
[2018-09-16] MEDS: PANTOPRAZOLE 40MG TABLET PO SCH (05:01)
[2018-09-16] MEDS: METOPROLOL TAR 25 MG TAB PO SCH ×2 (05:01→18:05)
[2018-09-16] MEDS: LEVOTHYROXINE SOD 0.1 MG TAB PO SCH (05:02)
[2018-09-16 05:34] LABS: Blood Morphology Comment NOT SEEN (NOT SEEN); Platelet Estimate ADEQ
[2018-09-16] MEDS ORDERED: POTASSIUM 25 MEQ EFFERV TAB PO ONE (07:34)
[2018-09-16] MEDS: PYRIDOSTIGMINE 60 MG TABLET PO SCH ×2 (08:22→21:24)
[2018-09-16] MEDS: ACETAMINOPHEN 325 MG TABLET PO PRN (08:23)
--- NOTE | 2018-09-16 16:08 | ECHO ---
HEIGHT: 5 ft 4 in WEIGHT: 170 lb 0 oz DATE OF STUDY: 09/16/[address]: Simi Ching MD 2-DIMENSIONAL: YES M.MODE: YES DOPPLER: YES COLOR FLOW: YES TDS: NO PORTABLE: NO DEFINITY: NO BUBBLE STUDY: NO DIAGNOSIS: ATRIAL FIBRILLATION CARDIAC HISTORY: CATHERIZATION: SURGERY: PROSTHETIC VALVE: PACEMAKER: MEASUREMENTS (cm) DIASTOLIC (NORMALS) SYSTOLIC (NORMALS) IVSd 1.0 (0.6-1.2) LA Diam 3.5 (1.9-4.0) LVEF 68% LVIDd 4.8 (3.5-5.7) LVIDs 3.0 (2.0-3.5) %FS 38% LVPWd 1.1 (0.6-1.2) Ao Diam 2.8 (2.0-3.7) 2 DIMENSIONAL ASSESSMENT: RIGHT ATRIUM: NORMAL LEFT ATRIUM: NORMAL RIGHT VENTRICLE: NORMAL LEFT VENTRICLE: NORMAL TRICUSPID VALVE: NORMAL MITRAL VALVE: NORMAL PULMONIC VALVE: NORMAL AORTIC VALVE: NORMAL PERICARDIAL EFFUSION: NONE AORTIC ROOT: NORMAL LEFT VENTRICULAR WALL MOTION: NORMAL. DOPPLER/COLOR FLOW: MILD TRICUSPID REGURGITATION. NORMAL RIGHT VENTRICULAR SYSTOLIC PRESSURE. COMMENTS: NORMAL 2D ECHOCARDIOGRAM WITH DOPPLER. MILD TRICUSPID REGURGITATION. TECHNOLOGIST: FRANSISCA SURESH
[2018-09-16] MEDS: CETIRIZINE HCL 5 MG TABLET PO SCH (18:04)
[2018-09-16] MEDS: CEFTRIAXONE/SWI 1gm 1 GM/10 ML SYR IV SCH (18:04)
[2018-09-16] MEDS: MONTELUKAST 10 MG TAB PO SCH (18:05)
[2018-09-16] MEDS: AZITHROMYCIN IV 500 MG in NA CHLORIDE 0.9% 250 ML IVPB SCH (18:05)
--- NOTE | 2018-09-16 18:58 | P.PN ---
Subjective Date of Service: 09/16/18 Primary Care Provider: Dr. Mcmahon Chief Complaint: sepsis, pneumonia Patient seen and examined at bedside. No family at bedside. Chart reviewed and case discussed with nursing staff. Reports breathing better Continues to be in Normal sinus rhythm. Denies any chest pain, palpitations, dizziness, vision changes, speech changes Review of Systems 10-point ROS is otherwise unremarkable Physical Examination - Vital Signs Temperature: 97.4 F Blood Pressure: 149/77 Pulse: 91 Respirations: 18 Pulse Ox (%): 96 - Physical Exam General: Alert, In no apparent distress, Oriented x3 HEENT: Atraumatic, PERRLA, EOMI Neck: Supple, JVD not distended Respiratory: Normal air movement, Crackles/rales Cardiovascular: Regular rate/rhythm, Normal S1 S2 Gastrointestinal: Normal bowel sounds, No tenderness Musculoskeletal: No tenderness Integumentary: No rashes Neurological: Normal speech, Normal tone, Normal affect Lymphatics: No axilla or inguinal lymphadenopathy Assessment And Plan - Current Problems (Diagnosis) (1) Atrial fibrillation Current Visit: Yes Status: Acute (2) Acute respiratory failure Current Visit: Yes Status: Acute Qualifiers: Respiratory failure complication: hypoxia Qualified Code(s): J96.01 - Acute respiratory failure with hypoxia (3) HTN (hypertension) Current Visit: Yes Status: Acute Qualifiers: Hypertension type: essential hypertension Qualified Code(s): I10 - Essential (primary) hypertension (4) Hypothyroidism Current Visit: Yes Status: Acute Qualifiers: Hypothyroidism type: unspecified Qualified Code(s): E03.9 - Hypothyroidism , unspecified (5) Pneumonia Current Visit: Yes Status: Acute Qualifiers: Pneumonia type: due to unspecified organism Laterality: unspecified laterality Lung location: unspecified part of lung Qualified Code(s): J18.9 - Pneumonia, unspecified organism (6) Sepsis Current Visit: Yes Status: Acute Qualifiers: Sepsis type: sepsis due to unspecified organism Qualified Code(s): A41.9 - Sepsis, unspecified organism - Plan Patient Problems: Sepsis (Acute) A41.9 improving Pneumonia (Acute) J18.9 Acute respiratory failure (Acute) J96.00 Improving. This is likely secondary to pneumonia Continue IV antibiotics, breathing treatments and oxygen as needed. Will continue to wean off oxygen. CT scan done, consistent with bilateral pneumonia. Atrial fibrillation (Acute) I48.91: Converted back to NSR New diagnoses. Patient without any history of heart disease or irregular heart beats. TSH low. This could be secondary to the sepsis. Metoprolol for rate control Continue IV fluids Cardiology consulted. Recommendations appreciated. ECHO normal, with EF of 68% HTN (hypertension) (Acute) I10 Stable, Will continue to monitor and adjust medications as needed. Hypothyroidism (Acute) E03.9 Continue home medications. TSH low. Continue decreased dosage of Synthroid dosage 100 mcg daily. DVT prophylaxis: Lovenox GI prophylaxis: Protonix Diet: Heart healthy Disposition: Pending symptomatic improvement. Continue IV fluids, IV antibiotics, breathing treatments and oxygen as needed.
[2018-09-16] MEDS: ATORVASTATIN 10 MG TAB PO SCH (21:24)
[2018-09-16] MEDS: ALPRAZOLAM 1 MG TABLET PO SCH (21:24)
[2018-09-17] MEDS: IPRATROPIUM BROM 0.5MG/2.5ML NEB SCH ×2 (02:30→07:55)
[2018-09-17] MEDS: LEVALBUTEROL 1.25 MG/3 ML NEB NEB SCH ×2 (02:30→07:55)
[2018-09-17 04:30] LABS: Magnesium 2.2 mg/dL (1.8-2.4); Phosphorus 4.5 mg/dL (2.5-4.9); Potassium 3.8 mmol/L (3.5-5.1)
[2018-09-17] MEDS ORDERED: POTASSIUM CL SA 10 MEQ TAB PO ONE (04:46)
[2018-09-17] MEDS: PANTOPRAZOLE 40MG TABLET PO SCH (05:52)
[2018-09-17] MEDS: LEVOTHYROXINE SOD 0.1 MG TAB PO SCH (05:53)
[2018-09-17] MEDS: METOPROLOL TAR 25 MG TAB PO SCH (05:53)
[2018-09-17] MEDS: PYRIDOSTIGMINE 60 MG TABLET PO SCH (08:58)
[2018-09-17] MEDS: ACETAMINOPHEN 325 MG TABLET PO PRN (09:37)
[2018-09-17 13:08] VITALS: O2SAT 92
[2018-09-17 13:21] VITALS: BP 142/71; TEMP 98.3
--- NOTE | 2018-09-18 04:17 | DS ---
Date of Discharge: 09/17/2018 Real Estate Processor: Krishan White M.D., with Cardiology. Admitting Diagnoses: 1. Acute respiratory failure with hypoxia. 2. Pneumonia. 3. Essential hypertension. 4. Hypothyroidism. 5. Sepsis. Discharge Diagnoses: 1. Sepsis. 2. Pneumonia, bilateral, right middle lobe and left lower lobe. 3. Atrial fibrillation, now back to sinus rhythm. 4. Acute respiratory failure with hypoxia. 5. Essential hypertension. 6. Hypothyroidism. 7. Gastroesophageal reflux disease without esophagitis. 8. Generalized anxiety disorder. Hospital Course: The patient is a 78-year-old female who came in with cough and sepsis, found to be febrile with respiratory distress. The patient had elevated white count. She was found to be septic secondary to pneumonia. The patient was started on IV antibiotics and responded well. She did have some mild electrolyte abnormalities which were corrected. The patient's lactate level was initially elevated at 4.8, did normalize. Procalcitonin was negative. The patient's blood cultures remained negative. Her influenza screen was also negative. Sputum culture did not show any growth. During her hospitalization while she was hypoxic in respiratory distress secondary to pneumonia, she developed atrial fibrillation which was paroxysmal. It the patient was seen by Cardiology. She was recommended to be on aspirin only at this time due to the transitory nature of the atrial fibrillation. No previous history. Echocardiogram was done, which showed EF of 68% and mild tricuspid regurgitation. The patient does have high CHADS-VASc score due to her age and hypertension. However, the patient is on meloxicam for her chronic arthritis, and the patient is not interested in long-term chronic anticoagulation with Coumadin or newer agents. However, she is willing to follow up with Cardiology as an outpatient and discuss with Cardiology regarding use of full-dose anticoagulation for now. The patient will be on aspirin, and she is currently back in sinus rhythm. Overall, the patient did well over the course of the hospital stay. Her cough improved, however, not completely resolved. She was still having some sputum production. The patient was then cleared for discharge from sfdc consultant's standpoint. The patient was able to ambulate without difficulty. No further hypoxia. The patient was afebrile. The patient was then discharged home in a stable condition. Activity: As tolerated. No strenuous activity. Followup: Follow up with primary care physician 2 to 3 days. Follow up with casket inspector, Dr. White, in 2 weeks. Return to ER for worsening condition. Diet: Heart healthy. Medications: As per medication reconciliation list. The patient's dose of Synthroid will be reduced. Will be started on Lopressor. The patient will finish a course of antibiotics for her pneumonia. Physical Examination: General: Awake, alert, oriented x3. Elderly female, in no acute distress. CV: S1, S2. Regular rate and rhythm. Peripheral pulses present. Respiratory: Moving air well bilaterally. No wheezing. Gastrointestinal: Abdomen is soft, nontender, nondistended. Positive bowel sounds. Extremities: No clubbing, cyanosis, or edema. Neurologic: Nonfocal. Code status addressed Total time spent DC pt was 32 minutes. CHRISTIN Voice ID: [id number] Report ID: [id number] MTDD
== END 2018-09-17 13:30 | disposition home or self-care (01) | DRG 871 ==
LOC: ER 10:01 → ERHOLD 11:58 → 4TH 13:07
PROVIDERS: ADMIT Family Medicine; ATTEND Family Medicine
DX: A41.9 Sepsis, unspecified organism (principal); J18.9 Pneumonia, unspecified organism; J96.01 Acute respiratory failure with hypoxia; R65.20 Severe sepsis without septic shock; I10 Essential (primary) hypertension; E03.9 Hypothyroidism, unspecified; K21.9 Gastro-esophageal reflux disease without esophagitis; F41.1 Generalized anxiety disorder; I48.0 Paroxysmal atrial fibrillation; Z87.891 Personal history of nicotine dependence
CPT/HCPCS: 36415; 71045; 71046; 71260; 80048; 80053; 80076; 81015; 82550; 82553; 82962; 83605; 83690; 83735; 84100; 84132; 84145; 84436; 84439; 84443; 84484; 85025; 85610; 85730; 87040; 87070; 87205; 87804; 93005; 93306; 94640; 94760; 96365; 96375; 99285; J0456; J0696; J1650; J1940; J2930; J7030; Q9967

== ENCOUNTER 2021-09-28 17:09 | Emergency (ER) | payer OTHER, MEDICARE ==
--- OUTSIDE RECORDS SUMMARY | 2021-09-28 17:14 | XMS REPORT | Continuity of Care Document ---
:1940 Author Organization [facility] [place] t Address [address] [place] [address] Care Team Providers Name Role Phone SCOTTSHERRYMURALI Primary Care Physician Unavailable Jet Edmonds Attending Clinician Unavailable Leroy Andres Attending Clinician Unavailable Luis Enrique Attending Clinician Unavailable Sis MONTEMAYOR Attending Clinician Unavailable Kiya DE LOS SANTOS, Gene Attending Clinician KHALIF DAVIDSON Attending Clinician Unavailable KHALIF DAVIDSON Attending Clinician Unavailable Physician, Primary or Family Admitting Clinician Unavailabl e UNDEFINED Admitting Clinician Unavailable KNOW Admitting Clinician Unavailable Jet Edmonds Admitting Clinician Unavailable Payers Payer Name Policy Type Policy Number Effective Date Expiration Date S cris MEDICARE PART A \T\ [id number] 2007 B 00:00:[address] [facility] [id number] 2017 MEDICARE SUPPLEMENT 00:00:00 Problems This patient has no known problems. Allergies, Adverse Reactions, Alerts Allergy Allergy Status Severity Reaction(s) Onset Inactive Treating Comm ents Source Name Type Date Date Clinician No Known DA Active U 2021-0 [facility] [place] [facility] No Known DA Active U 2021-0 [facility]- [place] [facility] No Known DA Active U 2021-0 [facility] 2[facility]22 [place] [facility] No Known DA Active U 2021-0 [facility] [place] [facility] No Known DA Active U 2020-1 [facility] 1[facility]10 [place] [facility] No Known DA Active U 2020-1 [facility] 1[facility]10 [place] [facility] No Known DA Active U 2020-0 [facility] 8[facility]26 [place] [facility] No Known DA Active U 2020-0 [facility] 8[facility]26 [place] [facility] No Known DA Active U 2020-0 [facility] 7[facility]21 [place] [facility] No Known DA Active U 2020-0 [facility] 7[facility]21 [place] [facility] No Known DA Active U 2020-0 [facility] 2[facility]28 [place] [facility] No Known DA Active U 2020-0 [facility] 2[facility]28 [place] [facility] No Known DA Active U 2020-0 [facility]13 [place] [facility] No Known DA Active U 2020-0 [facility] 2[facility]13 [place] [facility] No Known DA Active U 2019-0 [facility] 7-05 [place] [facility] No Known DA Active U 2019-0 [facility] 7[facility]05 [place] [facility] No Known DA Active U 2019-0 [facility] 3[facility]27 [place] [facility] No Known DA Active U 2018- [facility]23 [place] [facility] No Known DA Active U 2018-1 [facility] 0-22 [place] [facility] No Known DA Active U 2018-0 [facility] 6-04 [place] [facility] NO KNOWN Drug Active [facility] Medications This patient has no known medications. Procedures This patient has no known procedures. Encounters Start End Encounter Admission Attending Care Care Encounter Source Date/Time Date/Time Type Type Clinicians Facility Department ID 2020-11-01 Inpatient HERLINDA Edmonds, [facility] [id number] [facility] 08:30:00 Francisco 89982 [place] [facility] 2020-10-25 Inpatient HERLINDA Edmonds, [facility] [id number] [facility] 08:00:00 Francisco 25651 [place] [facility] 2020-10-11 Inpatient HERLINDA Edmonds [facility] [id number] [facility] 09:00:00 Francisco 26236 [place] [facility] 2020-03-30 Inpatient EL Doctor, [facility] [id number] [facility] 13:00:00 Darren 83456 [place] [facility] 2019-11-10 Inpatient EL Doctor, [facility] [id number] [facility] 11:15:00 Darren 84235 [place] [facility] 2021-05-05 2021-05-05 Outpatient HERLINDA Edmonds [facility] [id number] [facility] 08:19:00 08:19:00 Francisco 88059 [place] [facility] 2021-02-24 2021-02-24 Outpatient HERLINDA Edmonds, [facility] [id number] [facility] 08:10:00 08:10:00 Francisco Paul17 [place] [facility] 2021-01-20 2021-01-20 Outpatient HUBER Edmonds RADI [id number] [facility] 11:30:00 11:30:00 Francisco 03400 [place] [facility] 2020-12-06 2020-12-06 Outpatient Dennis MONTEMAYOR [facility] [id number] Univers 12:10:00 12:10:00 ANDRÉS [facility] 2020-11-23 2020-11-23 [facility] [id number] 00:00:00 00:00:00 Sandip Esteves [id number] [place] [id number] Professio [phone] nal 092 [facility] 2020-11-15 2020-11-15 Outpatient [facility] [id number] [facility] 10:30:00 10:30:00 [id number] [facility] 2020-11-15 2020-11-15 [facility] [id number] Univers 10:30:00 10:30:00 [facility] 2020-09-28 2020-09-28 Office Kiya, [facility] [id number] 14:36:13 16:10:37 Visit Sandip Esteves [id number] [place] [id number] Professio [phone] nal 092 [facility] 2020-09-28 2020-09-28 Outpatient SANDIP LIM [facility] [id number] Univers 14:40:00 14:40:00 SANDIP DAVIDSON [facility] 2020-09-28 2020-09-28 Outpatient SANDIP LIM [facility] [id number] Univers 10:40:00 10:40:00 SANDIP DAVIDSON [id number] [facility] 2020-07-20 2020-07-20 Outpatient HUBER Edmonds PAIN [id number] [facility] 09:30:00 09:30:00 Francisco Valdez10 [place] [facility] 2020-05-05 2020-05-05 Outpatient Doctor, [facility] [id number] [facility] 08:30:00 08:30:00 Darren 78801 [place] [facility] 2020-03-08 2020-03-08 Outpatient Doctor, [facility] RADI [id number] 10:45:00 10:45:00 Darren 16785 [place] [facility] 2020-01-13 2020-01-13 Outpatient Doctor, [facility] PAIN [id number] [facility] 11:45:00 11:45:00 Darren 25195 [place] [facility] 2019-10-23 2019-10-23 Outpatient Doctor, [facility] PA[facility] [id number] [facility] 10:00:00 10:00:00 Darren 87776 [place] [facility] 2019-09-16 2019-09-16 Outpatient R SANDIP DAVIDSON [facility] [id number] [facility] 00:00:00 23:59:00 SANDIP DAVIDSON [facility] Results Test Description Test Time Test Comments Results Result [facility] e Comments - XR FLUORO FOR 2021-05-05 SPINE INJ 18:46:00 [facility] : 1940 Sex: F Patient Name: LETICIA VELA Unit No: [id number] EXAMS: CPT CODE: [id number] XR FLUORO FOR SPINE INJ 24187 LUMBAR DISCOGRAM AND INTRADISCAL INJECTION REFERRING PHYSICIAN: None PREOPERATIVE DIAGNOSIS: Discogenic low back pain POSTOPERATIVE DIAGNOSIS: Symptomatic degenerative lumbar discs PROCEDURE PERFORMED: Fluoroscopically guided needle localization of the L3-4, L4-5 and L5-S1 discs with provocative discography and therapeutic intradiscal injection of local anesthetic and steroid. FINDINGS: Moderate loss of disc space height is seen at L3-4 and L4-5 with marked loss of disc space height at L5-S1 and diffuse annular degeneration at each level. Provocation with injection was negative. Anesthetic response was positive with the patient noting complete relief of her low back pain. Preinjection VAS 5/10. Postinjection VAS 0/10. Steroid response pending follow-up. ANTIBIOTIC: Cefazolin IV and intradiscal. ESTIMATED BLOOD LOSS: Minimal ANESTHESIA: TIVA COMPLICATIONS: None DETAILS OF PROCEDURE: After obtaining stable vital signs, informed consent and IV access, with no contraindications to proceeding, the patient received preoperative antibiotics and was taken to the fluoroscopy suite where the patient was placed in a prone position with all extremities padded and appropriate monitors placed. The patient was sterilely prepped and draped over the lumbosacral spine. Under fluoroscopic visualization the selected discs were visualized and the insertion sites were marked for paramedian approaches. Using standard double needle no-touch technique, a 20 gauge spinal introducer needle was advanced to the level of the facets and a curved 25-gauge needle was then passed through the introducer and advanced into each disc without paresthesias. Isovue 300 contrast 0.2 ml was then injected to produce each discogram. Bupivacaine 0.75% 0.25 mL with lidocaine 4% 0.25 ml, Rcymccmau303 mg/mL 0.2 ml and triamcinolone 26 mg was then injected, provocation was recorded and the needles were removed. There were no signs of intravascular or intrathecal uptake. The patient's vital signs remained stable. The patient was taken to the PACU in good condition. Image: Image 1 [facility] NAME: LETICIA VELA [address] [facility] PHYS: Francisco Mcgrath MD [place], [place] [address] : 1940 AGE: 80 SEX: F LOC: Y.MEHRDAD PHONE #: [phone] EXAM DATE: 05/05/2021 STATUS: [place] FAX #: [phone] RAD #: [id number] D/C DT PAGE 1 Signed Report (CONTINUED) Patient Name: LETICIA VELA Unit No: [id number] EXAMS: CPT CODE: [id number] XR FLUORO FOR SPINE INJ 88977 <Continued> Image: Image 2 Image: Image 3 at 1846 Reported and signed by: Francisco Edmonds M.D. CC: Technologist: Magi Mike(R) Transcribed D/ (1845) [facility] NAME: LETICIA VELA [address] [facility] PHYS: Francisco Mcgrath MD [place], [place] [address] : 1940 AGE: 80 SEX: F LOC: RAVINDER PHONE #: [phone] EXAM DATE: 05/05/2021 STATUS: [place] FAX #: [phone] RAD #: [id number] D/C DT PAGE 2 Signed Report Patient Name: LETICIA VELA Unit No: [id number] EXAMS: CPT CODE: [id number] XR FLUORO FOR SPINE INJ 49776 <Continued> Orig Print D/T: S: 05/05/2021 (1848) [facility] NAME: LETICIA VELA [address] [facility] PHYS: Francisco Mcgrath MD [place], [place] [address] : 1940 AGE: 80 SEX: F LOC: RAVINDER PHONE #: [phone] EXAM DATE: 05/05/2021 STATUS: [place] FAX #: [phone] RAD #: [id number] D/C DT PAGE 3 Signed Report - XR FLUORO FOR 2021-02-24 SPINE INJ 20:26:00 [facility] 1940 Sex: F Patient Name: LETICIA VELA Unit No: [id number] EXAMS: CPT CODE: [id number] XR FLUORO FOR SPINE INJ 74764 DIAGNOSTIC CERVICAL TRANSFORAMINAL EPIRADICULAR INJECTION REFERRAL PHYSICIAN: None PREOPERATIVE DIAGNOSIS: Cervical radiculitis. POSTOPERATIVE DIAGNOSIS: Multilevel cervical disc degeneration right C5-6 and C6-7 foraminal stenosis and right C6 and right C7 radicular pain PROCEDURES PERFORMED: Fluoroscopically guided needle localization of the right C6 and right C7 spinal nerves with transforaminal epidurograms and epidural injection of local anesthetic and steroid. FINDINGS: Uncovertebral joint hypertrophy with facet hypertrophy and subluxation produces marked bony foraminal stenosis on the right at C5-6. Slight facet subluxation with hypertrophy produces moderate bony foraminal stenosis on the right at C6-7. Cephalad displacement of the nerve root sleeve within the foramen is seen at C5-6 although flow was obtained in the epidural space through the posterior foramen at each level. Provocation with injection was negative. Anesthetic response was positive with the patient noting complete relief of her right neck and upper extremity pain. Preinjection VAS 7/10. Postinjection VAS 0/10. Steroid response pending follow-up. ESTIMATED BLOOD LOSS: Minimal ANESTHESIA: TIVA COMPLICATIONS: None. DETAILS OF PROCEDURE: After obtaining stable vital signs, informed consent and IV access, with no contraindications, the patient was taken to the operating room and placed in a 15 degree head-up supine position with all extremities padded and appropriate monitors placed. The patient was sterilely prepped and draped over the neck. Using fluoroscopic visualization, the insertion sites were marked for anterolateral paravertebral approaches and using standard technique, a 27 gauge needle was advanced until contacting each corresponding superior articular process without paresthesias. Isovue-300 contrast 0.5 mL was injected incrementally with digital subtraction to produce each epidurogram. There were no signs of intravascular or intrathecal uptake. Lidocaine 4% 0.8 mL with Decadron 8 mg was then injected incrementally with frequent negative aspirations at each site. There were no signs of intravascular or intrathecal uptake. The needles were removed and the patient was taken to the PACU in good condition. Image: Image 1 Image: Image 2 Image: Image 3 [facility] NAME: LETICIA VELA [address] [facility] PHYS: Francisco Mcgrath MD [place] [id number] : 1940 AGE: 80 SEX: F LOC: RAVINDER PHONE #: [phone] EXAM DATE: 02/24/2021 STATUS: [place] FAX #: [phone] RAD #: [id number] D/C DT PAGE 1 Signed Report (CONTINUED) Patient Name: LETICIA VELA Unit No: [id number] EXAMS: CPT CODE: [id number] XR FLUORO FOR SPINE INJ 77880 <Continued> at 2025 Reported and signed by: Francisco Edmonds M.D. CC: Technologist: Magi Mike(R) Transcribed D/ (2025) [facility] NAME: LETICIA VELA Sis [address] [facility] PHYS: Francisco Mcgrath MD [place] [address] : 1940 AGE: 80 SEX: F LOC: RAVINDER PHONE #: [phone] EXAM DATE: 02/24/2021 STATUS: [place] FAX #: [phone] RAD #: [id number] D/C DT PAGE 2 Signed Report Patient Name: LETICIA VELA Unit No: [id number] EXAMS: CPT CODE: [id number] XR FLUORO FOR SPINE INJ 63831 <Continued> Orig Print D/T: S: 02/24/2021 (2029) [place] [facility] NAME: LETICIA VELA [address] [facility] PHYS: Francisco Mcgrath MD [place] [address] : 1940 AGE: 80 SEX: F LOC: RAVINDER PHONE #: [phone] EXAM DATE: 02/24/2021 STATUS: [place] FAX #: [phone] RAD #: [id number] D/C DT PAGE 3 Signed Report - XR C-SPINE 6+V 2021-01-21 12:29:00 [facility] : 1940 Sex: F Patient Name: LETICIA VELA Unit No: [id number] EXAMS: CPT CODE: [id number] XR C-SPINE 6+V 20685 Cervical spine 5 views plus flexion and extension COMMENT: Vertebral body heights are maintained. There is interspace narrowing and endplate degenerative change from C4 to C7. Grade 1 spondylolisthesis is seen at C2-3 and C3-4 with grade 1 retrolisthesis at C4-5, C5-6 and C6-7. Abnormal motion is seen at C3-4 with reduction of the spondylolisthesis with extension. at 1229 Reported and signed by: Grabiel Wong MD CC: Francisco Edmonds MD Technologist: LENNY HAWKINS, RT(R) Transcribed D/ (1835) t.[email or web address].JCL [facility] NAME: LETICIA VELA [address] [facility] [address] PHYS: Francisco Mcgrath MD : 1940 AGE: 80 SEX: F [place], [place] [address] LOC: Y.MRI PHONE #: [phone] EXAM DATE: 01/20/2021 STATUS: DEP CLI FAX #: [phone] RAD #: [id number] D/C DT PAGE 1 Signed Report Patient Name: LETICIA VELA Unit No: [id number] EXAMS: CPT CODE: [id number] XR C-SPINE 6+V 16825 <Continued> Orig Print D/T: S: 01/21/2021 (1232) [place] [facility] NAME: LETICIA VELA [address] PHYS: Francisco Mcgrath MD : 1940 AGE: 80 SEX: F [place], [place] [address] LOC: Y.MRI PHONE #: [phone] EXAM DATE: 01/20/2021 STATUS: DEP CLI FAX #: [phone] RAD #: [id number] D/C DT PAGE 2 Signed Report - MRI C-SPINE W/O 2021-01-20 CONT 15:16:00 [facility] : 1940 Sex: F Patient Name: LETICIA VELA Unit No: [id number] EXAMS: CPT CODE: [id number] MRI C-SPINE W/O CONT 16622 DIAGNOSIS: 1. At C2-3 there is no evidence for disc bulge or herniation. No foraminal narrowing is seen. The canal is stenotic with an AP diameter of 10 mm and there is asymmetric right facet degeneration. 2. At C3-4 there is a mild degenerative spondylolisthesis and 2 mm of disc bulging in the left neural foramen. Mild left foraminal narrowing is seen without right-sided stenosis. Asymmetric left facet degeneration is present. No central canal stenosis is seen. 3. At C4-5 there is endplate spur formation and disc bulging lateralizing into the right neural foramen with asymmetric right facet degeneration. Marked right foraminal narrowing is seen without left-sided stenosis. No canal stenosis is identified. 4. At C5-6 there is a mild retrolisthesis with endplate spur formation and disc bulging. Marked right foraminal narrowing is present without left-sided stenosis. The canal is stenotic with an AP diameter of 10 mm. Bilateral facet degeneration is present. 5. At C6-7 there is a grade 1 retrolisthesis with endplate spur formation and disc bulging. Moderate right foraminal narrowing is present with mild left-sided stenosis. Bilateral facet degeneration is seen in the canal is stenotic with an AP diameter of 11 mm. 6. At C7-T1 there is a slight degenerative spondylolisthesis with moderate right foraminal narrowing without left-sided stenosis. Bilateral facet degeneration is present greater on the right. No canal stenosis is seen. COMMENT: COMPARISON: No prior exams available. Scans were performed in the sagittal and axial planes utilizing T1, gradient echo, T2 and inversion recovery images. Endplate and disc degeneration is present from C4 to T1. 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 The cord appears normal in size and signal. at 1516 Reported and signed by: Grabiel Wong MD CC: Francisco Edmonds MD Technologist: MELANIE GRANADOS Transcribed D/ (077) tLEONORJCL [facility] NAME: LETICIA VELA [address] [facility] PHYS: Francisco Mcgrath MD : 1940 AGE: 80 SEX: F [place] [address] LOC: Y.MRI PHONE #: [phone] EXAM DATE: 01/20/2021 STATUS: REG CLI FAX #: [phone] RAD #: [id number] D/C DT PAGE 1 Signed Report Patient Name: LETICIA VELA Unit No: [id number] EXAMS: CPT CODE: [id number] MRI C-SPINE W/O CONT 61622 <Continued> Orig Print D/T: S: 01/20/2021 (8105) [facility] NAME: LETICIA VELA [address] [facility] PHYS: Francisco Mcgrath MD : 1940 AGE: 80 SEX: F [place] [address] LOC: Y.MRI PHONE #: [phone] EXAM DATE: 01/20/2021 STATUS: REG CLI FAX #: [phone] RAD #: [id number] D/C DT PAGE 2 Signed Report - XR FLUORO FOR 2020-11-01 SPINE INJ 20:25:00 [facility] 1940 Sex: F Patient Name: LETICIA VELA Unit No: [id number] EXAMS: CPT CODE: [id number] XR FLUORO FOR SPINE INJ 51350 LUMBAR FACET INJECTION DIAGNOSTIC REFERRAL PHYSICIAN: None PREOPERATIVE DIAGNOSIS: Lumbar spondylosis without myelopathy or radiculopathy POSTOPERATIVE DIAGNOSIS: Lumbar spondylosis without myelopathy or radiculopathy PROCEDURE PERFORMED: Fluoroscopically guided needle localization of the bilateral L3-4, bilateral L4-5 and bilateral L5-S1 facets with arthrograms and diagnostic injection of local anesthetic and steroid. FINDINGS: Marked degeneration was seen at all joints with a moderate synovial cyst extending medially off the L4-5 facet on the right. Aspiration was positive at the right L4-5 and left L5-S1 facets for 0. 2-0.3 mL of clear serous fluid. Provocation with injection was partially concordant for usual pain at the right L4-5 and bilateral L5-S1 facets. Anesthetic response was negative with the patient increased low back pain. Preinjection VAS 3/10. Postinjection VAS 6/10. Steroid response pending follow-up. ESTIMATED BLOOD LOSS: Minimal ANESTHESIA: TIVA COMPLICATIONS: None DETAILS OF PROCEDURE: After obtaining stable vital signs, informed consent and IV access patient was taken to the fluoroscopy suite where the patient was placed in a prone position with all extremities padded and appropriate monitors placed. The patient was sterilely prepped prepped and draped over the lumbosacral spine. Using fluoroscopic visualization, the insertion sites were marked for a paravertebral approach to each joint. Using standard technique, a 26 -gauge needle was inserted into each joint capsule without paresthesias. At all levels, aspiration was negative for clear serous fluid. Isovue-300 contrast 0.2 mL was injected to produce each arthrogram. There were no signs of intravascular or intrathecal uptake. Bupivicaine 0.75% 0.5 mL with Lidocaine 4% 0.25 ml and triamcinolone 12 mg was then injected incrementally into each joint. There were no signs of intravascular or intrathecal uptake. The patient's vital signs remained stable. All needles were removed and the patient was taken to the PACU in good condition. Image: Image 1 Image: Image 2 [facility] NAME: LETICIA VLEA [address] [facility] PHYS: Francisco Mcgrath MD [place], [place] [address] : 1940 AGE: 80 SEX: F LOC: RAVINDER PHONE #: [phone] EXAM DATE: 11/01/2020 STATUS: REG [place] FAX #: [phone] RAD #: [id number] D/C DT PAGE 1 Signed Report (CONTINUED) Patient Name: LETICIA VELA Unit No: [id number] EXAMS: CPT CODE: [id number] XR FLUORO FOR SPINE INJ 67830 <Continued> at 2024 Reported and signed by: Francisco Edmonds M.D. CC: Technologist: Magi Mike(R) Transcribed D/ (2024) [facility]: LETICIA VELA [address] [facility] PHYS: Francisco Mcgrath MD [place], [place] [address] : 1940 AGE: 80 SEX: F LOC: RAVINDER PHONE #: [phone] EXAM DATE: 11/01/2020 STATUS: [place] FAX #: [phone] RAD #: [id number] D/C DT PAGE 2 Signed Report Patient Name: LETICIA VELA Unit No: [id number] EXAMS: CPT CODE: [id number] XR FLUORO FOR SPINE INJ 49337 <Continued> Orig Print D/T: S: 11/01/2020 (2027) [facility] NAME: LETICIA VELA [address] [facility] PHYS: Francisco Mcgrath MD [place], [place] [address] : 1940 AGE: 80 SEX: F LOC: RAVINDER PHONE #: [phone] EXAM DATE: 11/01/2020 STATUS: REG [place] FAX #: [phone] RAD #: [id number] D/C DT PAGE 3 Signed Report - XR FLUORO FOR 2020-10-11 SPINE INJ 20:22:00 [facility] 1940 Sex: F Patient Name: LETICIA VELA Unit No: [id number] EXAMS: CPT CODE: [id number] XR FLUORO FOR SPINE INJ 67008 LUMBAR DISCOGRAM AND INTRADISCAL INJECTION REFERRING PHYSICIAN: None PREOPERATIVE DIAGNOSIS: Discogenic low back pain POSTOPERATIVE DIAGNOSIS: Symptomatic degenerative L3-4, L4-5 and L5-S1 discs PROCEDURE PERFORMED: Fluoroscopically guided needle localization of the L3-4, L4-5 and L5-S1 discs with provocative discography and therapeutic intradiscal injection of local anesthetic and steroid. FINDINGS: marked loss of disc space height is seen at L5-S1 with moderate loss of disc space height at L3-4 and L4-5. Diffuse annular degeneration was seen at each level. Provocation with injection was negative. Anesthetic response was negative with the patient in persistent low back pain. Preinjection VAS 6/10. Postinjection VAS 8/10. Steroid response pending follow-up. ANTIBIOTIC: Cefazolin IV and intradiscal. ESTIMATED BLOOD LOSS: Minimal ANESTHESIA: TIVA COMPLICATIONS: None DETAILS OF PROCEDURE: After obtaining stable vital signs, informed consent and IV access, with no contraindications to proceeding, the patient received preoperative antibiotics and was taken to the fluoroscopy suite where the patient was placed in a prone position with all extremities padded and appropriate monitors placed. The patient was sterilely prepped and draped over the lumbosacral spine. Under fluoroscopic visualization the selected discs were visualized and the insertion sites were marked for paramedian approaches. Using standard double needle no-touch technique, a 20 gauge spinal introducer needle was advanced to the level of the facets and a curved 25-gauge needle was then passed through the introducer and advanced into the center of each disc without paresthesias. Isovue 300 contrast 0.2 ml was then injected to produce each discogram. Bupivacaine 0.75% 0.25 mL with lidocaine 4% 0.5 ml, Sjwyvopxq072 mg/mL 0.2 ml and triamcinolone 26 mg was then injected, provocation was recorded and the needles were removed. There were no signs of intravascular or intrathecal uptake. The patient's vital signs remained stable. The patient was taken to the PACU in good condition. Of note images fill to transfer on the L3-4 and partially on the L4-5 discs. [facility] NAME: LETICIA VELA [address] [facility] PHYS: Francisco Mcgrath MD [place], [place] [address] : 1940 AGE: 80 SEX: F LOC: RAVINDER PHONE #: [phone] EXAM DATE: 10/11/2020 STATUS: REG [place] FAX #: [phone] RAD #: [id number] D/C DT PAGE 1 Signed Report (CONTINUED) Patient Name: LETICIA VELA Unit No: [id number] EXAMS: CPT CODE: [id number] XR FLUORO FOR SPINE INJ 27496 <Continued> at 2021 Reported and signed by: Francisco Edmonds M.D. CC: Technologist: Magi Mike(R) Transcribed D/ (2021) [facility] NAME: LETICIA VELA [address] [facility] PHYS: Francisco Mcgrath MD [place], [place] [address] : 1940 AGE: 80 SEX: F LOC: RAVINDER PHONE #: [phone] EXAM DATE: 10/11/2020 STATUS: REG [place] FAX #: [phone] RAD #: [id number] D/C DT PAGE 2 Signed Report Patient Name: LETICIA VELA Unit No: [id number] EXAMS: CPT CODE: [id number] XR FLUORO FOR SPINE INJ 46234 <Continued> Orig Print D/T: S: 10/11/2020 (2025) [facility] NAME: LETICIA VELA [address] [facility] PHYS: Francisco Mcgrath MD [place], [place] [address] : 1940 AGE: 80 SEX: F LOC: RAVINDER PHONE #: [phone] EXAM DATE: 10/11/2020 STATUS: [place] FAX #: [phone] RAD #: [id number] D/C DT PAGE [address] SPECT (EG, 2020-08-30 HEAD, NECK, 14:57:58 CHEST, PELVIS) [facility]: [id number] LETICIA VELA : 1940 Sex: F Addendum created at 01/07/2021 10:28:49 AM:Addendum:Planar imaging only of the cervical spine is demonstrated. Approximate mild to moderate midline uptake is noted at C5-6 and C6-7. No significant facet localization is observed. Again note made of moderate bilateral acromioclavicular and glenohumeral joint uptake.Addendum by: Darwin Dudley, [facility] INDICATION: M51.36 Other intervertebral disc degeneration, lumbar [id number] Intervertebral disc disorders with radiculopathy, lumbar regionMODALITY: Discovery NM/CT 670TECHNIQUE: 25 mCi Tc 99m MDP are injected IV. After a suitable time delay, whole body imaging images were obtained. SPECT imaging of the lumbar spine is performed with computer and physician-assisted 2-D and 3-D reconstruction. Co-registered low dose limited diagnostic CT images are obtained at the level of SPECT imaging.Computed Tomography Dose Index: 5.44 mGy.FINDINGS:COMPARISON : Fusion CT exam.CT Comments: none.Symmetric bilateral renal function is observed.There is mild to moderate localization bilateral shoulders and wrists. 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 Moderate uptake is present at the right L3-4 intervertebral disc. Moderate right L3-4 facet, moderate - severe left L5-S1 facet uptake is otherwise most conspicuous.IMPRESSION: See comments above.RS 147: 3570F - XR FLUORO FOR 2020-07-20 SPINE INJ 18:21:00 [facility] 1940 Sex: F Patient Name: LETICIA VELA Unit No: [id number] EXAMS: CPT CODE: [id number] XR FLUORO FOR SPINE INJ 84841 LUMBAR EPIRADICULAR INJECTION REFERRAL PHYSICIAN: None PREOPERATIVE DIAGNOSIS: Lumbar Radiculitis POSTOPERATIVE DIAGNOSIS: Mild L3-4 disc displacement with marked L4-5 spinal stenosis and bilateral lower extremity radicular pain PROCEDURES PERFORMED: Fluoroscopically guided needle localization of the bilateral L4 and bilateral L5 spinal nerves with transforaminal epidurograms and epidural injection of local anesthetic and steroid. FINDINGS: Good flow was seen through all foramen however horizontal root changes were seen on the right L4-5 consistent with an element of foraminal stenosis. Proximal flow was mildly displaced across the L3-4 disc and obstructed across the L4-5 disc. Provocation with injection was negative. Anesthetic response was positive with the patient noting complete relief of her low back and bilateral lower extremity pain. Preinjection VAS 7/10. Postinjection VAS 0/10. Steroid response pending follow-up. ESTIMATED BLOOD LOSS: Minimal ANESTHESIA: TIVA COMPLICATIONS: None DETAILS OF PROCEDURE: After obtaining stable vital signs, informed consent and IV access, with no contraindications, the patient was taken to the operating room and placed in a prone position with all extremities padded and appropriate monitors placed. The patient was sterilely prepped and draped over the lumbosacral spine. Using fluoroscopic visualization the insertion sites were marked for paravertebral approaches and using standard technique, a 25 gauge needle was advanced to the base of each pedicle without paresthesias. Isovue-300 contrast 0.2 mL of was injected incrementally with frequent negative aspirations to produce each epidurogram. There were no signs of intravascular or intrathecal uptake. Bupivicaine 0.75% 0.25 mL with lidocaine 4% 0.5 mL and Decadron 5 mg was then incrementally injected with frequent negative aspirations and again there were no signs of intravascular or intrathecal uptake. The needles were removed and the patient was taken to the PACU in good condition. at 1821 Reported and signed by: Francisco Edmonds M.D. CC: Technologist: Magi Mike(Dennis) Transcribed D/ (1820) [facility] NAME: LETICIA VELA [address] [facility] PHYS: Francisco Mcgrath MD [place], [place] [address] : 1940 AGE: 79 SEX: F LOC: RAVINDER PHONE #: [phone] EXAM DATE: 07/20/2020 STATUS: [facility] [place] FAX #: [phone] RAD #: [id number] D/C DT PAGE 1 Signed Report Patient Name: LETICIA VELA Unit No: [id number] EXAMS: CPT CODE: [id number] XR FLUORO FOR SPINE INJ 03160 <Continued> Orig Print D/T: S: 07/20/2020 (1824) [facility] NAME: LETICIA VELA [address] [facility] PHYS: Francisco Mcgrath MD [place], [place] [address] : 1940 AGE: 79 SEX: F LOC: RAVINDER PHONE #: [phone] EXAM DATE: 07/20/2020 STATUS: [facility] [place] FAX #: [phone] RAD #: [id number] D/C DT PAGE 2 Signed Report - XR FLUORO FOR 2020-05-05 Patient Name: SPINE INJ 12:28:00 LETICIA VELA Unit No: [id number] EXAMS: CPT CODE: [id number] XR FLUORO FOR SPINE INJ 69952 CERVICAL TRANSFORAMINAL INJECTION REFERRING PHYSICIAN: PREOPERATIVE DIAGNOSIS: Cervical radiculitis POSTOPERATIVE DIAGNOSIS: Bilateral cervical radiculopathy PROCEDURES PERFORMED: Fluoroscopically guided needle localization of the bilateral C5, bilateral C6 spinal nerves with transforaminal epidural steroid injection/injections. 2. Transforaminal epidurogram/epidurogram s at bilateral C5, bilateral C6 FINDINGS: Poor filling all. Concordant provocation right C6 shoulder, right C5 neck. Pain relief-100%. Consider cervical facet block ANTIBIOTICS:Cefazolin ESTIMATED BLOOD LOSS: Minimal ANESTHESIA: (TIVA ) Total intravenous anesthetic (patient intolerant to sedatives and hypnotics) COMPLICATIONS: None DETAILS OF PROCEDURE: After obtaining stable vital signs, informed consent and IV access, with no known contraindications to proceeding, the patient was taken to the fluoroscopy suite and placed in a supine position with all extremities padded and appropriate monitors placed. A sterile prep and drape was performed over the cervical spine. Using fluoroscopic visualization at each level the insertion site was marked for a paravertebral approach to the foramen. Using standard technique, a 27gauge needle was advanced to the base of the pedicle. In AP view, final positioning was obtained outside the 6 on a clock position on the pedicle. Then, 0.5 ml of Isovue-300 contrast was injected to produce the epidurograms. No paresthesias were elicited with needle insertion or injection and there were no signs of intravascular or intrathecal uptake. Then, 0.5 ml of 4% lidocaine was injected as a test dose with no signs of intravascular or intrathecal uptake. Next, 10 mg of Decadron was injected incrementally with frequent negative aspirations.Each subsequent cervical nerve root sleeve was done with the same technique and medications were used.There were no signs of intravascular or intrathecal uptake. The patient's vital signs remained stable. The patient was taken to the PACU in good condition. [facility] NAME: LETICIA VELA [address] [place] [address] PHYS: Darren Shore MD [place], [place] [address] : 1940 AGE: 79 SEX: F LOC: RAVINDER PHONE #: [phone] EXAM DATE: 05/05/2020 STATUS: [facility] [place] FAX #: [phone] RAD #: [id number] D/C DT PAGE 1 Signed Report (CONTINUED) Patient Name: LETICIA VELA Unit No: [id number] EXAMS: CPT CODE: [id number] XR FLUORO FOR SPINE INJ 82502 <Continued> at 1228 Reported and signed by: Darren Andres M.D. CC: Darren Andres MD Technologist: MICHAEL WILLIS RT(R) Transcribed D/ (1228) tKAVEHD [facility] NAME: LETICIA VELA [address] [place] [address] PHYS: Darren Shore MD [place], [place] [address] : 1940 AGE: 79 SEX: F LOC: RAVINDER PHONE #: [phone] EXAM DATE: 05/05/2020 STATUS: [facility] [place] FAX #: [phone] RAD #: [id number] D/C DT PAGE 2 Signed Report Patient Name: LETICIA VELA Unit No: [id number] EXAMS: CPT CODE: [id number] XR FLUORO FOR SPINE INJ 81014 <Continued> Orig Print D/T: S: 05/05/2020 (1231) [facility] NAME: LETICIA VELA [address] [facility] PHYS: DOCUD - DoctorDarren MD [place], [place] [address] : 1940 AGE: 79 SEX: F LOC: RAVINDER PHONE #: [phone] EXAM DATE: 05/05/2020 STATUS: [facility] [place] FAX #: [phone] RAD #: [id number] D/C DT PAGE 3 Signed Report - XR FLUORO FOR 2020-03-30 Patient Name: SPINE INJ 11:43:00 LETICIA VELA Unit No: [id number] EXAMS: CPT CODE: [id number] XR FLUORO FOR SPINE INJ 89579 LUMBAR FACET INJECTION REFERRING PHYSICIAN: PREOPERATIVE DIAGNOSIS: 1. Lumbar facet arthropathy POSTOPERATIVE DIAGNOSIS: 1. Bilateral lumbar facet spondylosis without radiculopathy PROCEDURES PERFORMED Fluoroscopically guided needle localization of the bilateral L4-5, bilateral L5-S1 lumbar facets with injection of local anesthetic and steroids 2. Arthrograms of the bilateral L4-5, bilateral L5-S1 lumbar facets FINDINGS: 1. Concordant provocation both joints 50% relief ANTIBIOTIC: Cefazolin ESTIMATED BLOOD LOSS: Minimal ANESTHESIA: (TIVA) Total intravenous anesthetic (patient intolerant to sedatives and hypnotics). COMPLICATIONS: None DETAILS OF PROCEDURE: After obtaining stable vital signs, informed consent and IV access, with no known contraindications to proceeding, the patient was taken to the fluoroscopy suite and placed in a prone position with all extremities padded and appropriate monitors placed. A sterile prep and drape was performed over the lumbosacral spine. Using fluoroscopic visualization at each level the insertion site was marked for a paravertebral approach to the facets. Using standard technique, a 25 gauge needle was advanced to the facets. In AP view, the needle was advanced into the facets. Then, 1 ml of Isovue-300 contrast was injected to produce the arthrograms. AP, lateral and oblique views were documented. No paresthesias were elicited with needle insertion or injection and there were no signs of intravascular or intrathecal uptake. Then, 1 ml of 0.75% bupivacaine with 1 ml of 4% lidocaine and 10 mg of triamcinolone was injected incrementally with frequent negative aspirations. There were no signs of intravascular or intrathecal uptake. Each subsequent level was done using the same technique and medications. The patient's vital signs remained stable. The patient was taken to the PACU in good condition. at 1143 Reported and signed by: Darren Andres M.D. [facility] NAME: LETICIA VELA [address] [facility] PHYS: Darren Shore MD [place] [address] : 1940 AGE: 79 SEX: F LOC: RAVINDER PHONE #: [phone] EXAM DATE: 03/30/2020 STATUS: REG SDC FAX #: [phone] RAD #: [id number] D/C DT PAGE 1 Signed Report (CONTINUED) Patient Name: LETICIA VELA Unit No: [id number] EXAMS: CPT CODE: [id number] XR FLUORO FOR SPINE INJ 73243 <Continued> CC: Technologist: Magi Mike(R) Transcribed D/ (1148) [facility] NAME: LETICIA VELA [address] [facility] PHYS: Darren Shore MD [place] [address] : 1940 AGE: 79 SEX: F LOC: RAVINDER PHONE #: [phone] EXAM DATE: 03/30/2020 STATUS: REG SDC FAX #: [phone] RAD #: [id number] D/C DT PAGE 2 Signed Report Patient Name: LETICIA VELA Unit No: [id number] EXAMS: CPT CODE: [id number] XR FLUORO FOR SPINE INJ 59754 <Continued> Orig Print D/T: S: 03/30/2020 (9796) [facility] NAME: LETICIA VELA [address] [facility] PHYS: Darren Shore MD [place] [address] : 1940 AGE: 79 SEX: F LOC: YSarahMEHRDAD PHONE #: [phone] EXAM DATE: 03/30/2020 STATUS: REG SDC FAX #: [phone] RAD #: [id number] D/C DT PAGE 3 Signed Report - XR L-SPINE 2020-03-09 Patient Name: W/BEND VIEW 07:25:00 LETICIA VELA Unit No: [id number] EXAMS: CPT CODE: [id number] XR L-SPINE W/BEND VIEW 08003 LUMBAR SPINE 5 VIEWS PLUS FLEXION AND EXTENSION COMMENT: COMPARISON: No prior exams available. There is a scoliosis convex left. Vertebral body heights are maintained. There is interspace narrowing and endplate degenerative change from L2 to S1. Central laminectomy is noted 5 S1. Abnormal motion is seen at L4-5 with grade 1 spondylolisthesis in flexion which reduces in extension. Extensive atherosclerotic calcification is present in the aorta without evidence for aneurysmal dilatation. at 0725 Reported and signed by: Grabiel Wong MD CC: Darren Andres MD Technologist: Bethany Hermosillo RT.(R) Transcribed D/ (0725) [facility] NAME: LEITCIA VELA [address] [place] [address] PHYS: Darren Shore MD : 1940 AGE: 79 SEX: F [place] [address] LOC: YSarahMRI PHONE #: [phone] EXAM DATE: 03/08/2020 STATUS: DEP CLI FAX #: [phone] RAD #: [id number] D/C DT PAGE 1 Signed Report Patient Name: LETICIA VELA Unit No: [id number] EXAMS: CPT CODE: [id number] XR L-SPINE W/BEND VIEW 28091 <Continued> Orig Print D/T: S: 03/09/2020 (0729) [facility] NAME: LETICIA VELA [address] PHYS: DOCUD - Doctor,Darren Harper MD : 1940 AGE: 79 SEX: F [place] [address] LOC: Y.MRI PHONE #: [phone] EXAM DATE: 03/08/2020 STATUS: DEP CLI FAX #: [phone] RAD #: [id number] D/C DT PAGE 2 Signed Report - MRI L-SPINE W/O 2020-03-08 Patient Name: CONT 14:33:00 LETICIA VELA Unit No: [id number] EXAMS: CPT CODE: [id number] MRI L-SPINE W/O CONT 74991 TECHNIQUE: Multiplanar, multisequence MRI examination performed of the lumbar spine without intravenous contrast material. COMPARISON: MR dated 07/21/2014 FINDINGS: Five lumbar type vertebra are assumed. Alignment: Leftward curvature of the lumbar spine is centered at L3-L4. Slight retrolisthesis of L2-L3 and L3-L4. Grade 1 degenerative spondylosis of L4-L5. Bone Lesion: Degenerative marrow signal is seen at L5-S1. Fracture: None present. Paraspinal Soft Tissues: Unremarkable. Conus Medullaris: Termination at L1-L2 level. Morphology is normal. L1/2: No significant abnormality. L2/3: Slight retrolisthesis. Disc desiccation without significant bulge or herniation. Mild left foraminal stenosis. No significant right foraminal or central canal stenosis. L3/4: Slight retrolisthesis. Broad disc bulge is noted as well as bilateral facet hypertrophy. There is mild central canal stenosis and right lateral recess stenosis. Mild left, moderate right foraminal stenosis. L4/5: Grade 1 degenerative spondylolisthesis. Large right asymmetric disc bulge. Marked bilateral facet hypertrophy and ligamentum flavum thickening. Facet joint diastases is seen bilaterally, suggestive of instability. There is severe central canal stenosis as well as moderate left, severe right foraminal stenosis. These findings have significantly increased compared to prior exam. L5/S1: Marked disc degeneration with diffuse disc bulge and superimposed left paracentral disc protrusion measuring 3 to 4 mm, which narrows left lateral recess. The central canal is decompressed. Bilateral facet hypertrophy results in severe left, moderate right foraminal stenosis. IMPRESSION: Progression in multilevel lumbar spondylosis, greatest at L4-L5, where there is severe central canal stenosis. [facility] NAME: LETICIA VELA [address] [place] [address] PHYS: Darren Shore MD : 1940 AGE: 79 SEX: F [place] [address] LOC: Y.MRI PHONE #: [phone] EXAM DATE: 03/08/2020 STATUS: REG CLI FAX #: [phone] RAD #: [id number] D/C DT PAGE 1 Signed Report (CONTINUED) Patient Name: LETICIA VELA Unit No: [id number] EXAMS: CPT CODE: [id number] MRI L-SPINE W/O CONT 25712 <Continued> at 1433 Reported and signed by: Quentin Man M.D. CC: Darren Andres MD Technologist: Xiomara Mg, RT(R) Transcribed D/ (1433) [facility] NAME: LETICIA VELA [address] [place] [address] PHYS: Darren Shore MD : 1940 AGE: 79 SEX: F [place] [address] LOC: Y.MRI PHONE #: [phone] EXAM DATE: 03/08/2020 STATUS: REG CLI FAX #: [phone] RAD #: [id number] D/C DT PAGE 2 Signed Report Patient Name: LETICIA VELA Unit No: [id number] EXAMS: CPT CODE: [id number] MRI L-SPINE W/O CONT 32490 <Continued> Orig Print D/T: S: 03/08/2020 (1436) [facility] NAME: LETICIA VELA [address] [place] [address] PHYS: Darren Shore MD : 1940 AGE: 79 SEX: F [place] [address] LOC: Y.MRI PHONE #: [phone] EXAM DATE: 03/08/2020 STATUS: REG CLI FAX #: [phone] RAD #: [id number] D/C DT PAGE 3 Signed Report - XR FLUORO FOR 2020-01-13 Patient Name: SPINE INJ 10:52:00 LETICIA VELA Unit No: [id number] EXAMS: CPT CODE: [id number] XR FLUORO FOR SPINE INJ 51119 Right SHOULDER INJECTION REFERRING PHYSICIAN: PREOPERATIVE DIAGNOSIS: 1.Right shoulder arthropathy POSTOPERATIVE DIAGNOSIS: 1right.shoulder arthropathy . 2.Findings: PROCEDURES PERFORMED: 1.Fluoroscopic guided needle localization of right shoulder joint. 2.Arthrogram of right shoulder joint and placement of local anesthetic and steroids in right shoulder joint. FINDINGS: 1. Good spread in the joint ANTIBIOTIC: Cefazolin ESTIMATED BLOOD LOSS: Minimal ANESTHESIA: (TIVA) Total intravenous anesthetic (patient intolerant to sedatives and hypnotics) COMPLICATIONS: None DETAILS OF PROCEDURE: After obtaining stable vital signs, informed consent and IV access, with no known contraindications to proceeding, the patient was taken to the fluoroscopy suite and placed in a supine position with all extremities padded and appropriate monitors placed. Using standard technique, and fluoroscopic guidance, a 27-gauge needle was advanced into the right shoulder joint and 2 mL of Isovue-300 contrast was injected to produce an arthrogram. No paresthesias were noted with placement of the needle. The results of the arthrogram are detailed above. Then 2 mL of 0.75 percent Marcaine and 2 mL of 4% lidocaine and 20 mg of triamcinolone was injected into the joint. Areas was cleaned of the prep and the patient was taken to the recovery room in stable condition. at 1052 Reported and signed by: Darren Andres M.D. CC: Darren Andres MD Technologist: MAREK CHEEK RT(R) Transcribed D/ (1052) [facility] NAME: LETICIA VELA [address] [facility] PHYS: DOCUD - Darren Andres MD [place], [place] [address] : 1940 AGE: 79 SEX: F LOC: RAVINDER PHONE #: [phone] EXAM DATE: 01/13/2020 STATUS: REG [place] FAX #: [phone] RAD #: [id number] D/C DT PAGE 1 Signed Report Patient Name: LETICIA VELA Unit No: [id number] EXAMS: CPT CODE: [id number] XR FLUORO FOR SPINE INJ 47997 <Continued> Orig Print D/T: S: 01/13/2020 (1056) [facility] NAME: LETICIA VELA [address] [facility] PHYS: JAIR - Darren Andres MD [place], [place] [address] : 1940 AGE: 79 SEX: F LOC: YOSMAN PHONE #: [phone] EXAM DATE: 01/13/2020 STATUS: REG SDC FAX #: [phone] RAD #: [id number] D/C DT PAGE 2 Signed Report - XR FLUORO FOR 2019-11-10 Patient Name: SPINE INJ 11:27:00 LETICIA VELA Unit No: [id number] EXAMS: CPT CODE: [id number] XR FLUORO FOR SPINE INJ 48730 LUMBAR TRANSFORAMINAL INJECTION REFERRING PHYSICIAN: PREOPERATIVE DIAGNOSIS: Degenerative Lumbar Disc Disease. POSTOPERATIVE DIAGNOSIS: Lumbar radiculopathy PROCEDURES PERFORMED 1. Fluoroscopically guided needle localization of the bilateral L4, bilateral L5 spinal nerve/nerves with transforaminal epidural steroid injection/injections. 2. Transforaminal epidurogram/epidurogram s at bilateral L4, bilateral L5. FINDINGS: Poor filling all. Concordant provocation bilateral L5 hips, left L4 back. Pain relief-100%. ANTIBIOTIC: Cefazolin ESTIMATED BLOOD LOSS: Minimal ANESTHESIA: (TIVA )Total intravenous anesthetic (patient intolerant to sedatives and hypnotics) COMPLICATIONS: None DETAILS OF PROCEDURE: After obtaining stable vital signs, informed consent and IV access, with no known contraindications to proceeding, the patient was taken to the fluoroscopy suite and placed in a prone position with all extremities padded and appropriate monitors placed. A sterile prep and drape was performed over the lumbosacral spine. Using fluoroscopic visualization at each level the insertion site was marked for a paravertebral approach to the foramen. Using standard technique, a 25 gauge needle was advanced to the base of the pedicle. In AP view, final positioning was obtained outside the 6 on the clock position on the pedicle. Then, 1 ml of Isovue-300 contrast was injected to produce the epidurograms. No paresthesias were elicited with needle insertion or injection and there were no signs of intravascular or intrathecal uptake. Then, with 1 ml of 4% lidocaine and 10 mg of triamcinolone was injected incrementally with frequent negative aspirations. There were no signs of intravascular or intrathecal uptake. Each subsequent level was done using the same technique and medications. The patient's vital signs remained stable. The patient was taken to the PACU in good condition. at 1127 Reported and signed by: Darren Andres M.D. [facility] NAME: LETICIA VELA [address] [place] [address] PHYS: Darren Shore MD [place] [address] : 1940 AGE: 79 SEX: F LOC: RAVINDER PHONE #: [phone] EXAM DATE: 11/10/2019 STATUS: REG SDC FAX #: [phone] RAD #: [id number] D/C DT PAGE 1 Signed Report (CONTINUED) Patient Name: LETICIA VELA Unit No: [id number] EXAMS: CPT CODE: [id number] XR FLUORO FOR SPINE INJ 95849 <Continued> CC: Technologist: Magi Mike(Dennis) Transcribed D/ (1127) [facility]ung [facility] NAME: LETICIA VELA [address] [facility] PHYS: Darren Shore MD [place] [address] : 1940 AGE: 79 SEX: F LOC: RAVINDER PHONE #: [phone] EXAM DATE: 11/10/2019 STATUS: REG SDC FAX #: [phone] RAD #: [id number] D/C DT PAGE 2 Signed Report Patient Name: LETICIA VELA Unit No: [id number] EXAMS: CPT CODE: [id number] XR FLUORO FOR SPINE INJ 94582 <Continued> Orig Print D/T: S: 11/10/2019 (1130) [facility] NAME: LETICIA VELA [address] PHYS: DOCUD - DoctorDarren MD [place], [place] [address] : 1940 AGE: 79 SEX: F LOC: RAVINDER PHONE #: [phone] EXAM DATE: 11/10/2019 STATUS: REG [place] FAX #: [phone] RAD #: [id number] D/C DT PAGE 3 Signed Report - XR FLUORO FOR 2019-10-23 Patient Name: SPINE INJ 13:23:00 LETICIA VELA Unit No: [id number] EXAMS: CPT CODE: [id number] XR FLUORO FOR SPINE INJ 37416 CERVICAL TRANSFORAMINAL INJECTION REFERRING PHYSICIAN: PREOPERATIVE DIAGNOSIS: Cervical radiculitis POSTOPERATIVE DIAGNOSIS: Right cervical radiculopathy PROCEDURES PERFORMED: Fluoroscopically guided needle localization of the right C6, right C5 spinal nerves with transforaminal epidural steroid injection/injections. 2. Transforaminal epidurogram/epidurogram s at right C6, right C5 FINDINGS: Poor filling right C6, right C5. Concordant provocation right C6 arm. Pain relief-100%. ANTIBIOTICS:Cefazolin ESTIMATED BLOOD LOSS: Minimal ANESTHESIA: (TIVA ) Total intravenous anesthetic (patient intolerant to sedatives and hypnotics) COMPLICATIONS: None DETAILS OF PROCEDURE: After obtaining stable vital signs, informed consent and IV access, with no known contraindications to proceeding, the patient was taken to the fluoroscopy suite and placed in a supine position with all extremities padded and appropriate monitors placed. A sterile prep and drape was performed over the cervical spine. Using fluoroscopic visualization at each level the insertion site was marked for a paravertebral approach to the foramen. Using standard technique, a 27gauge needle was advanced to the base of the pedicle. In AP view, final positioning was obtained outside the 6 on a clock position on the pedicle. Then, 0.5 ml of Isovue-300 contrast was injected to produce the epidurograms. No paresthesias were elicited with needle insertion or injection and there were no signs of intravascular or intrathecal uptake. Then, 0.5 ml of 4% lidocaine was injected as a test dose with no signs of intravascular or intrathecal uptake. Next, 10 mg of Decadron was injected incrementally with frequent negative aspirations.Each subsequent cervical nerve root sleeve was done with the same technique and medications were used.There were no signs of intravascular or intrathecal uptake. The patient's vital signs remained stable. The patient was taken to the PACU in good condition. [facility] NAME: LETICIA VELA [address] [facility] PHYS: Darren Shore MD [place] [address] : 1940 AGE: 79 SEX: F LOC: RAVINDER PHONE #: [phone] EXAM DATE: 10/23/2019 STATUS: REG [place] FAX #: [phone] RAD #: [id number] D/C DT PAGE 1 Signed Report (CONTINUED) Patient Name: LETICIA VELA Unit No: [id number] EXAMS: CPT CODE: [id number] XR FLUORO FOR SPINE INJ [id number] <Continued> at 1323 Reported and signed by: Darren Andres M.D. CC: Darren Andres MD Technologist: MAREK CHEEK RT(R) Transcribed D/ (1323) Chung [facility] NAME: LETICIA VELA [address] [facility] PHYS: Darren Shore MD [place] [address] : 1940 AGE: 79 SEX: F LOC: RAVINDER PHONE #: [phone] EXAM DATE: 10/23/2019 STATUS: [facility] [place] FAX #: [phone] RAD #: [id number] D/C DT PAGE 2 Signed Report Patient Name: LETICIA VELA Unit No: [id number] EXAMS: CPT CODE: [id number] XR FLUORO FOR SPINE INJ 55063 <Continued> Orig Print D/T: S: 10/23/2019 (1326) [facility] NAME: LETICIA VELA [address] [facility] PHYS: Darren Shore MD [place] [address] : 1940 AGE: 79 SEX: F LOC: RAVINDER PHONE #: [phone] EXAM DATE: 10/23/2019 STATUS: [facility] [place] FAX #: [phone] RAD #: [id number] D/C DT PAGE 3 Signed Report - XR FLUORO FOR 2019-06-26 Patient Name: SPINE INJ 12:23:00 LETICIA VELA Unit No: [id number] EXAMS: CPT CODE: [id number] XR FLUORO FOR SPINE INJ 99380 LUMBAR FACET INJECTION REFERRING PHYSICIAN: PREOPERATIVE DIAGNOSIS: 1. Lumbar facet arthropathy POSTOPERATIVE DIAGNOSIS: 1. Bilateral L4-5, bilateral L5-S1 lumbar facet spondylosis without radiculopathy PROCEDURES PERFORMED Fluoroscopically guided needle localization of the bilateral L4-5, bilateral L5-S1 lumbar facets with injection of local anesthetic and steroids 2. Arthrograms of the bilateral L4-5, bilateral L5-S1 lumbar facets FINDINGS: 1. Concordant provocation both joints both sides 100% relief ANTIBIOTIC: Cefazolin ESTIMATED BLOOD LOSS: Minimal ANESTHESIA: (TIVA) Total intravenous anesthetic (patient intolerant to sedatives and hypnotics). COMPLICATIONS: None DETAILS OF PROCEDURE: After obtaining stable vital signs, informed consent and IV access, with no known contraindications to proceeding, the patient was taken to the fluoroscopy suite and placed in a prone position with all extremities padded and appropriate monitors placed. A sterile prep and drape was performed over the lumbosacral spine. Using fluoroscopic visualization at each level the insertion site was marked for a paravertebral approach to the facets. Using standard technique, a 25 gauge needle was advanced to the facets. In AP view, the needle was advanced into the facets. Then, 1 ml of Isovue-300 contrast was injected to produce the arthrograms. AP, lateral and oblique views were documented. No paresthesias were elicited with needle insertion or injection and there were no signs of intravascular or intrathecal uptake. Then, 1 ml of 0.75% bupivacaine with 1 ml of 4% lidocaine and 10 mg of triamcinolone was injected incrementally with frequent negative aspirations. There were no signs of intravascular or intrathecal uptake. Each subsequent level was done using the same technique and medications. The patient's vital signs remained stable. The patient was taken to the PACU in good condition. [facility] NAME: LETICIA VELA [address] [facility] PHYS: DOCUD - Doctor,Darren Harper MD [place], [place] [address] : 1940 AGE: 78 SEX: F LOC: RAVINDER PHONE #: [phone] EXAM DATE: 06/26/2019 STATUS: [facility] [place] FAX #: [phone] RAD #: [id number] D/C DT PAGE 1 Signed Report (CONTINUED) Patient Name: LETICIA VELA Unit No: [id number] EXAMS: CPT CODE: [id number] XR FLUORO FOR SPINE INJ 44976 <Continued> at 1223 Reported and signed by: Darren Andres M.D. CC: Darren Andres MD Technologist: ESTEFANY PENA RT(R) Transcribed D/ (1223) Chung [facility] NAME: LETICIA VELA [address] [place] [address] PHYS: Darren Shore MD [place] [address] : 1940 AGE: 78 SEX: F LOC: RAVINDER PHONE #: [phone] EXAM DATE: 06/26/2019 STATUS: REG [place] FAX #: [phone] RAD #: [id number] D/C DT PAGE 2 Signed Report Patient Name: LETICIA VELA Unit No: [id number] EXAMS: CPT CODE: [id number] XR FLUORO FOR SPINE INJ 45385 <Continued> Orig Print D/T: S: 06/26/2019 (1226) [facility] NAME: LETICIA VELA [address] [place] [address] PHYS: Darren Shore MD [place] [address] : 1940 AGE: 78 SEX: F LOC: RAVINDER PHONE #: [phone] EXAM DATE: 06/26/2019 STATUS: REG [place] FAX #: [phone] RAD #: [id number] D/C DT PAGE 3 Signed Report - XR FLUORO FOR 2019-03-14 Patient Name: SPINE INJ 13:11:00 LETICIA VELA Unit No: [id number] EXAMS: CPT CODE: [id number] XR FLUORO FOR SPINE INJ 84193 LUMBAR TRANSFORAMINAL INJECTION REFERRING PHYSICIAN: PREOPERATIVE DIAGNOSIS: Degenerative Lumbar Disc Disease. POSTOPERATIVE DIAGNOSIS: Bilateral lumbar radiculopathy PROCEDURES PERFORMED 1. Fluoroscopically guided needle localization of the bilateral L4, L5 spinal nerve/nerves with transforaminal epidural steroid injection/injections. 2. Transforaminal epidurogram/epidurogram s at bilateral L4, L5. FINDINGS: Poor filling all. Concordant provocation bilateral L5 hips, right L4 back. Pain relief-100%. ANTIBIOTIC: Cefazolin ESTIMATED BLOOD LOSS: Minimal ANESTHESIA: (TIVA )Total intravenous anesthetic (patient intolerant to sedatives and hypnotics) COMPLICATIONS: None DETAILS OF PROCEDURE: After obtaining stable vital signs, informed consent and IV access, with no known contraindications to proceeding, the patient was taken to the fluoroscopy suite and placed in a prone position with all extremities padded and appropriate monitors placed. A sterile prep and drape was performed over the lumbosacral spine. Using fluoroscopic visualization at each level the insertion site was marked for a paravertebral approach to the foramen. Using standard technique, a 25 gauge needle was advanced to the base of the pedicle. In AP view, final positioning was obtained outside the 6 on the clock position on the pedicle. Then, 1 ml of Isovue-300 contrast was injected to produce the epidurograms. No paresthesias were elicited with needle insertion or injection and there were no signs of intravascular or intrathecal uptake. Then, with 1 ml of 4% lidocaine and 10 mg of triamcinolone was injected incrementally with frequent negative aspirations. There were no signs of intravascular or intrathecal uptake. Each subsequent level was done using the same technique and medications. The patient's vital signs remained stable. The patient was taken to the PACU in good condition. at 1311 Reported and signed by: Darren Andres M.D. CC: Bro Mcmahon MD Technologist: Magi Mike(R) Transcribed D/ (1311) Terrie.NERYD [facility] NAME: LETICIA VELA [address] [facility] PHYS: DOCUD - DoctorDarren MD [place], [place] [address] : 1940 AGE: 78 SEX: F LOC: RAVINDER PHONE #: [phone] EXAM DATE: 03/14/2019 STATUS: [facility] [place] FAX #: [phone] RAD #: [id number] D/C DT PAGE 1 Signed Report Patient Name: LETICIA VELA Unit No: [id number] EXAMS: CPT CODE: [id number] XR FLUORO FOR SPINE INJ 36436 <Continued> Orig Print D/T: S: 03/14/2019 (1314) [facility] NAME: LETICIA VELA [address] [facility] PHYS: DOCUD - Doctor,Darren Harper MD [place], [place] [address] : 1940 AGE: 78 SEX: F LOC: RAVINDER PHONE #: [phone] EXAM DATE: 03/14/2019 STATUS: [facility] [place] FAX #: [phone] RAD #: [id number] D/C DT PAGE 2 Signed Report - XR FLUORO FOR 2018-12-04 Patient Name: SPINE INJ 15:28:00 LETICIA VELA Unit No: [id number] EXAMS: CPT CODE: [id number] XR FLUORO FOR SPINE INJ 90132 LUMBAR TRANSFORAMINAL INJECTION AND LUMBAR FACET BLOCK REFERRING PHYSICIAN: PREOPERATIVE DIAGNOSIS: 1. Degenerative Lumbar Disc Disease. 2. Lumbar Facet Arthropathy POSTOPERATIVE DIAGNOSIS: Lumbar facet arthropathy lumbar radiculopathy PROCEDURES PERFORMED Fluoroscopically guided needle localization of the bilateral L5 with transforaminal epidural steroid injections 2. Transforaminal epidurogram/epidurogram s at bilateral L5. 3. Fluoroscopic guided injections of the bilateral L4-5, bilateral L5-S1 intra-articular facets. 4. Arthrograms of the BILATERAL L4-5, bilateral L5-S1 lumbar facets FINDINGS: Concordant provocation both joints both sides concordant provocation bilateral L5 nerve root for hip pain ANTIBIOTIC: Cefazolin ESTIMATED BLOOD LOSS: Minimal ANESTHESIA: (TIVA) Total intravenous anesthetic (patient intolerant to sedatives and hypnotics) COMPLICATIONS: None DETAILS OF PROCEDURE: After obtaining stable vital signs, informed consent and IV access, with no known contraindications to proceeding, the patient was taken to the fluoroscopy suite and placed in a prone position with all extremities padded and appropriate monitors placed. A sterile prep and drape was performed over the lumbosacral spine. Using fluoroscopic visualization at each level the insertion site was marked for a paravertebral approach to the foramen. Using standard technique, a 25 gauge needle was advanced to the base of the pedicle. In AP view, final positioning was obtained outside the 6 o clock position on the pedicle. Then, 1 ml of Isovue-300 contrast was injected to produce the epidurograms. No paresthesias were elicited with needle insertion or injection and there were no signs of intravascular or intrathecal uptake. Then, with 1 ml of 4% lidocaine and 10 mg of triamcinolone was injected incrementally with frequent negative aspirations. There were no signs of intravascular or intrathecal uptake. The patient's vital signs remained stable. The patient was placed in a prone position and the lumbosacral spine [facility] NAME: LETICIA VELA [address] [facility] PHYS: DOCUD - DoctorDarren MD [place], [place] [address] : 1940 AGE: 78 SEX: F LOC: MelviMEHRDAD PHONE #: [phone] EXAM DATE: 12/04/2018 STATUS: [facility] [place] FAX #: [phone] RAD #: [id number] D/C DT PAGE 1 Signed Report (CONTINUED) Patient Name: LETICIA VELA Unit No: [id number] EXAMS: CPT CODE: [id number] XR FLUORO FOR SPINE INJ 45554 <Continued> was prepped and draped in sterile fashion. Using standard technique, using fluoroscopic guidance, a 27-gauge needle was advanced into the facet joint and 2 mL of Isovue-300 contrast was injected to produce an arthrogram. Please see results of the arthrogram above. Then 2 mL was of 0.75 percent Marcaine and 2 mL of 4% lidocaine and 20 mg of triamcinolone was injected into the joint. Areas were cleaned of the prep and the patient was taken to the recovery room. at 3436 Reported and signed by: Darren Andres M.D. CC: Technologist: Magi Mike(Dennis) Transcribed D/ (1528) [email or web address] [facility] NAME: LETICIA VELA [address] [facility] PHYS: Darren Shore MD [place] [address] : 1940 AGE: 78 SEX: F LOC: RAVINDER PHONE #: [phone] EXAM DATE: 12/04/2018 STATUS: [facility] [place] FAX #: [phone] RAD #: [id number] D/C DT PAGE 2 Signed Report Patient Name: LETICIA VELA Unit No: [id number] EXAMS: CPT CODE: [id number] XR FLUORO FOR SPINE INJ 83315 <Continued> Orig Print D/T: S: 12/04/2018 (1032) [facility] NAME: LETICIA VELA [address] [facility] PHYS: Darren Shore MD [place], [place] [address] : 1940 AGE: 78 SEX: F LOC: RAVINDER PHONE #: [phone] EXAM DATE: 12/04/2018 STATUS: [facility] [place] FAX #: [phone] RAD #: [id number] D/C DT PAGE 3 Signed Report
[2021-09-28 17:48] LABS: Absolute Lymphocytes (CBC) 0.8 K/uL (0.7-4.9); Hematocrit 40.8 % (36.0-45.0); Lymphocytes % 11.9 % (15.3-44.8); MPV 7.9 fL (7.6-11.3); RBC Red Blood Cell Count 4.52 M/uL (3.86-4.86)
[2021-09-28 17:50] LABS: Protime INR 0.96
[2021-09-28 18:08] LABS: Albumin 3.4 g/dL (3.4-5.0); Bilirubin Direct 0.1 mg/dL (0-0.2); Bilirubin Total 0.5 mg/dL (0.2-1.0); Potassium 3.8 mmol/L (3.5-5.1); Protein, Total 6.9 g/dL (6.4-8.2); Troponin High Sensitivity 7.5 pg/mL (<58.9)
--- NOTE | 2021-09-28 18:26 | RAD REPORT ---
EXAM DESCRIPTION: CT - Head Brain Wo Cont - 09/28/2021 6:15 pm CLINICAL HISTORY: CONFUSED Headache, drowsiness, alteration of consciousness. COMPARISON: HEAD BRAIN W O CONTRAST dated 03/07/2008 TECHNIQUE: All CT scans are performed using dose optimization technique as appropriate and may inclu de automated exposure control or mA/KV adjustment according to patient size. FINDINGS: No intracranial hemorrhage, hydrocephalus or extra-axial fluid collection.No areas of brai n edema or evidence of midline shift. The paranasal sinuses and mastoids are clear. The calvarium is intact. IMPRESSION: No acute intracranial abnormality.
--- NOTE | 2021-09-28 18:29 | RAD REPORT ---
EXAM DESCRIPTION: RAD - Chest Single View - 09/28/2021 6:10 pm CLINICAL HISTORY: COUGH Chest pain. COMPARISON: Chest Single View dated 09/13/2018; Chest Pa And Lat (2 Views) dated 09/13/2018; Chest Singl e View dated 09/12/2018; Chest Pa And Lat (2 Views) dated 11/13/2016 FINDINGS: Portable technique limits examination quality. Mild interstitial lung opacities suggesting mild viral infection. The heart is normal in size. No dis placed fractures.
[2021-09-28 18:30] LABS: SARS-COV-2 RT PCR POSITIVE (NEGATIVE)
--- NOTE | 2021-09-28 18:51 | RAD REPORT ---
EXAM DESCRIPTION: MRI - Brain Wo Cont - 09/28/2021 6:41 pm CLINICAL HISTORY: CONFUSED Headache, drowsiness, CVA COMPARISON: Head Brain Wo Cont dated 09/28/2021 TECHNIQUE: Multi-sequence, multiplanar MR imaging of the brain was performed without contrast. FINDINGS: No intracranial hemorrhage, hydrocephalus or extra-axial fluid collections.Minimal left pe riventricular chronic microvascular ischemia. No edema or shift of midline structures. No findings to suspect brain mass. DWI is negative for acute CVA. Midline structures are normally formed. Mastoid air cells and paranasal sinuses are clear. IMPRESSION: Negative for acute CVA or other acute intracranial process.
--- NOTE | 2021-09-28 20:06 | ER ---
Nurse's Notes [facility] Name: Era Agustin Age: 81 yrs Sex: Female : 1940 Arrival Date: 09/28/2021 Time: 17:14 Bed Waiting Private MD: Bro Mcmahon T Diagnosis: Coronavirus infection, unspecified Presentation: 09/28 17:19 Chief complaint: Patient states: "I am having dizziness and high blood pressure and jd3 just not feeling well for 2 days or so.". Coronavirus screen: cough unrelated to allergies, Client presents with at least one sign or symptom that may indicate coronavirus-19. Standard/surgical mask placed on the client. Provider contacted for isolation considerations. Ebola Screen: Patient negative for fever greater than or equal to 101.5 degrees Fahrenheit, and additional compatible Ebola Virus Disease symptoms. Initial Sepsis Screen: Does the patient meet any 2 criteria? No. Patient's initial sepsis screen is negative. Does the patient have a suspected source of infection? No. Patient's initial sepsis screen is negative. Risk Assessment: Do you want to hurt yourself or someone else? Patient reports no desire to harm self or others. Onset of symptoms was September 28, 2021. 17:19 Method Of Arrival: Ambulatory jd3 17:19 Acuity: CLARENCE 3 jd3 Historical: - Allergies: 17:21 No Known Allergies; jd3 - PMHx: 17:21 Hyperlipidemia; Hypothyroidism; Hypertension; Back pain; jd3 - Immunization history:: Adult Immunizations up to date, Client reports receiving the 2nd dose of the Covid vaccine, Flu vaccine is up to date. - Social history:: Smoking status: Patient/guardian denies using tobacco, but has a distant history of tobacco abuse. Screenin:38 Abuse screen: Denies threats or abuse. Nutritional screening: No deficits noted. jd3 Tuberculosis screening: No symptoms or risk factors identified. Fall Risk Ambulatory Aid- None/Bed Rest/Nurse Assist (0 pts). Gait- Normal/Bed Rest/Wheelchair (0 pts) Mental Status- Oriented to own ability (0 pts). Total Roche Fall Scale indicates No Risk (0-24 pts). Assessment: 17:37 General: Appears in no apparent distress. uncomfortable, Behavior is calm, cooperative, jd3 appropriate for age. Pain: Complains of pain in low back area Quality of pain is described as sharp. Neuro: Level of Consciousness is awake, alert, obeys commands, Oriented to person, place, time, situation, Reports dizziness, since X 2 days. Cardiovascular: Capillary refill < 3 seconds Patient's skin is warm and dry. Rhythm is regular. Respiratory: Reports cough that is non-productive, persistent Airway is patent Respiratory effort is even, unlabored, Respiratory pattern is regular, symmetrical. GI: No signs and/or symptoms were reported involving the gastrointestinal system. : No signs and/or symptoms were reported regarding the genitourinary system. EENT: No signs and/or symptoms were reported regarding the EENT system. Derm: Skin is intact, Skin is dry, Skin is normal, Skin temperature is warm. Musculoskeletal: No signs and/or symptoms reported regarding the musculoskeletal system. Vital Signs: 17:23 BP 128 / 93; Pulse 94; Resp 18 S; Temp 99.1(TE); Pulse Ox 99% on R/A; Weight 77.11 kg jd3 (R); Height 5 ft. 4 in. (162.56 cm) (R); Pain 9/10; 17:23 Body Mass Index 29.18 (77.11 kg, 162.56 cm) jd3 ED Course: 17:14 Patient arrived in ED. mr 17:15 Bro Mcmahon MD is Private Physician. mr 17:20 Triage completed. jd3 17:24 Arm band placed on. jd3 17:29 Vashti Contreras FNP-C is [facility]. kb 17:30 Chandan Underwood MD is Attending Physician. kb 18:10 XRAY Chest (1 view) In Process Unspecified. EDMS 18:16 CT Head Brain wo Cont In Process Unspecified. EDMS 18:40 MRI - Brain Wo Cont In Process Unspecified. EDMS Administered Medications: No medications were administered Outcome: 20:05 Discharge ordered by . kb 20:38 Patient left the ED. kb Signatures: Dispatcher [employer] EDMS Vashti Contreras FNP-C FNP-Ckb RiveraKimberly mr GuerreroGabe, RN RN jd3
--- NOTE | 2021-09-28 20:06 | EDPHYS ---
Physician Documentation [facility] Name: Era Agustin Age: 81 yrs Sex: Female : 1940 Arrival Date: 09/28/2021 Time: 17:14 Bed Waiting Private MD: Bro Mcmahon T ED Physician Chandan Underwood HPI: 09/28 18:04 This 81 yrs old Female presents to ER via Ambulatory with complaints of Confusion, High kb Blood Pressure, Headache, High Heart Rate. 18:33 The patient presents with dizziness, generalized weakness. Onset: The symptoms/episode kb began/occurred yesterday. Context: occurred at home, occurred while the patient was walking, just prior to the episode the patient experienced no apparent symptoms. Modifying factors: The symptoms are alleviated by nothing, the symptoms are aggravated by nothing. Associated signs and symptoms: The patient has no apparent associated signs or symptoms. Severity of symptoms: At their worst the symptoms were moderate in the emergency department the symptoms have improved mildly. Patient's baseline: Neuro: alert and fully oriented, Motor: no deficits, Ambulation: walks without assistance, Speech: normal. The patient has not experienced similar symptoms in the past. The patient has not recently seen a physician. Pt states she hasn't felt well over the past few days, reports cough and dizziness. Family member states pt was walking out of her office and had to hold onto the wall so she didn't fall. Reports pt was confused thinking it was Sunday. [facility] checked pt's vitals and reported BP 170/90 with a heart rate of 160 so family brought pt in. Pt states she has been very tired recently. Pt awake, alert and oriented x4.. Historical: - Allergies: 17:21 No Known Allergies; jd3 - PMHx: 17:21 Hyperlipidemia; Hypothyroidism; Hypertension; Back pain; jd3 - Immunization history:: Adult Immunizations up to date, Client reports receiving the 2nd dose of the Covid vaccine, Flu vaccine is up to date. - Social history:: Smoking status: Patient/guardian denies using tobacco, but has a distant history of tobacco abuse. ROS: 18:00 Constitutional: Negative for fever, chills, and weight loss. kb 18:00 Neuro: Positive for altered mental status, dizziness. 18:00 All other systems are negative. Exam: 20:09 Constitutional: This is a well developed, well nourished patient who is awake, alert, kb and in no acute distress. Head/Face: Normocephalic, atraumatic. Eyes: Pupils equal round and reactive to light, extra-ocular motions intact. Lids and lashes normal. Conjunctiva and sclera are non-icteric and not injected. Cornea within normal limits. Periorbital areas with no swelling, redness, or edema. ENT: Moist Mucous membranes Cardiovascular: Regular rate and rhythm with a normal S1 and S2. No gallops, murmurs, or rubs. No pulse deficits. Respiratory: Respirations even and unlabored. No increased work of breathing. Talking in full sentences Abdomen/GI: Soft, non-tender. No distention Skin: Warm, dry with normal turgor. Normal color. MS/ Extremity: Pulses equal, no cyanosis. Neurovascular intact. Full, normal range of motion. Neuro: Awake and alert, GCS 15, oriented to person, place, time, and situation. Moves all extremities. Normal gait. Psych: Awake, alert, with orientation to person, place and time. Behavior, mood, and affect are within normal limits. Vital Signs: 17:23 BP 128 / 93; Pulse 94; Resp 18 S; Temp 99.1(TE); Pulse Ox 99% on R/A; Weight 77.11 kg jd3 (R); Height 5 ft. 4 in. (162.56 cm) (R); Pain 9/10; 17:23 Body Mass Index 29.18 (77.11 kg, 162.56 cm) jd3 MDM: 17:30 Patient medically screened. 18:02 Data reviewed: vital signs, nurses notes. Data interpreted: Pulse oximetry: on room air kb is 99 %. Interpretation: normal. 20:05 Counseling: I had a detailed discussion with the patient and/or guardian regarding: the historical points, exam findings, and any diagnostic results supporting the discharge/admit diagnosis, lab results, radiology results, the need for outpatient follow up, a family practitioner, to return to the emergency department if symptoms worsen or persist or if there are any questions or concerns that arise at home. 20:10 Data reviewed: I have discussed the patient's presentation/case with the attending Emergency Department Physician;. 09/28 17:25 Order name: COVID-19/FLU A+B (Document "Date of Onset" if Symptomatic); Complete Time: jd3 18:33 09/28 17:30 Order name: Basic Metabolic Panel; Complete Time: 18:10 kb 09/28 17:30 Order name: CBC with Diff; Complete Time: 17:56 kb 09/28 17:30 Order name: LFT's; Complete Time: 18:10 kb 09/28 17:30 Order name: Magnesium; Complete Time: 18:10 kb 09/28 17:30 Order name: NT PRO-BNP; Complete Time: 18:10 kb 09/28 17:25 Order name: XRAY Chest (1 view); Complete Time: 18:33 jd3 09/28 17:30 Order name: MRI - Brain Wo Cont; Complete Time: 19:12 kb 09/28 17:30 Order name: CT Head Brain wo Cont; Complete Time: 18:29 kb 09/28 17:30 Order name: PT-INR; Complete Time: 17:56 kb 09/28 17:30 Order name: Troponin HS; Complete Time: 18:10 kb 09/28 17:30 Order name: EKG; Complete Time: 17:31 kb 09/28 17:30 Order name: Cardiac monitoring; Complete Time: 17:36 kb 09/28 17:30 Order name: EKG - Nurse/Tech; Complete Time: 17:36 kb 09/28 17:30 Order name: IV Saline Lock; Complete Time: 17:36 kb 09/28 17:30 Order name: Labs collected and sent; Complete Time: 17:36 kb 09/28 17:30 Order name: O2 Per Protocol; Complete Time: 17:36 kb 09/28 17:30 Order name: O2 Sat Monitoring; Complete Time: 17:36 kb Administered Medications: No medications were administered Disposition: 09/29 07:12 Co-signature as Attending Physician, Chandan Underwood MD I agree with the assessment and kdr plan of care. Disposition Summary: 09/28/21 20:05 Discharge Ordered Location: Home kb Condition: Stable kb Diagnosis - Coronavirus infection, unspecified kb Followup: kb - With: Emergency Department - When: As needed - Reason: Worsening of condition Followup: kb - With: Private Physician - When: 2 - 3 days - Reason: Recheck today's complaints, Continuance of care, Re-evaluation by your physician Discharge Instructions: - Discharge Summary Sheet kb - Viral Respiratory Infection, [id number] kb - COVID-19 kb Forms: - Medication Reconciliation Form kb - Thank You Letter kb - Antibiotic Education kb - Prescription Opioid Use kb Signatures: Dispatcher [employer] Vashti Hairston, Chandan Arevalo MD MD kdr Davies, Jonathon, RN RN jd3
[2021-09-28 20:44] VITALS: BP 128/93; TEMP 99.1; O2SAT 99
== END 2021-09-28 20:38 | disposition home or self-care (01) ==
LOC: ER 17:09
DX: U07.1 COVID-19 (principal); I10 Essential (primary) hypertension
CPT/HCPCS: 93005; 85025; 80048; 36415; 83735; 85610; 80076; 84484; 83880; 0240U; 70450; 71045; 70551; 99282

== ENCOUNTER 2022-05-05 11:07 | Emergency (ER) | payer OTHER, MEDICARE ==
--- OUTSIDE RECORDS SUMMARY | 2022-05-05 11:12 | XMS REPORT | Continuity of Care Document ---
:1940 Author Organization [facility] Address [address] [place] [address] Support Name Relationship Address Phone Contact, No Unavailable Unavailable Sofia Armstrong Child [address] [place] [address] SOFIA ARMSTRONG Unavailable [address] [place] [address] SOFIA ARMSTRONG Unavailable [address] [place] [phone] SOFAI ARMSTRONG Unavailable [address] [place] [phone] SOFIA ARMSTRONG Unavailable [address] [place] [address] CADENCE CARTY (POA) Unavailable [address] [place] [address] SOFIA ARMSTRONG SO [address] [phone] JANINE MORROW [address] CADENCE CARTY (POA) Unavailable [address] [place] [address] CADENCE CARTY (POA) Unavailable [address] [facility] [address] [place] [address] CADENCE CARTY (POA) Unavailable [address] [facility] [address] [place] [address] CADENCE CARTY (POA) OT [address] [facility] [address] [place] [phone] SOFIA ARMSTRONG SO [address] [place] [address] CADENCE CARTY OT [address] [place] [address] [phone] [place] [address] Care Team Providers Name Role Phone Lauren Mcmahon Primary Care Physician Francisco Edmonds Attending Clinician Unavailable FOG_Halreedek_Mar_NP Attending Clinician Unavailable Francisco Edmonds Attending Clinician [phone] Sandip Huertas MD Attending Clinician Kimberly Mcbride Attending Clinician [phone] Darwin Dudley Attending Clinician Unavailable Doctor, Darren Harper Attending Clinician Unavailable Francisco Edmonds Admitting Clinician Unavailable FOG_Halamicek_Mar_NP Admitting Clinician Unavailable Physician, No Primary or Family Admitting Clinician Unavaila LAUREN Hoover Admitting Clinician Unavailable KNOW, DOES_NOT Admitting Clinician Unavailable Payers Payer Name Policy Type Policy Number Effective Date Expiration Date S cris MEDICARE [place]: [id number] 2007 [place] 00:00:00 [facility] [id number] 2021 OPTIONS (MEDICARE 00:00:00 SUPPLEMENT) Problems Condition Condition Condition Status Onset Resolution Last Treating Co mments Source Name Details Category Date Date Treatment Clinician Date No known No known Disease Unive rs active active ity of problems problems [facility] Allergies, Adverse Reactions, Alerts Allergy Allergy Status Severity Reaction(s) Onset Inactive Treating Comm ents Source Name Type Date Date Clinician No Known DA Active U [facility] No Known DA Active U [facility] 05-05 s 00:[facility] No Known DA Active [facility] 11[facility]01 [place] 00[place] [facility] No Known DA Active U [facility] 11-01 [place] 00:[facility] No Known DA Active U 2019-09 [facility] 09-19 [place] 00:[facility] No Known DA Active U 2019-09 [facility] 09-19 [place] 00:[facility] [...] Known DA Active U 2018-1 [facility] 0-23 [place] 00:[facility] No Known DA Active U 2018-1 [facility] 0-22 [place] 00:[facility] No Known DA Active U 2018-0 [facility] 6-04 [place] 00:[facility] Social History Social Habit Start Date Stop Date Quantity Comments Source History SDOH University o f Alcohol Frequency [place] [facility] History SDME University o f Alcohol Std [place] [facility] Drinks [facility] History SDME University o f Alcohol Binge [place] [facility] Alcohol intake 2020-09-28 2020-09-28 Current drinker Unive rsity of 00:00:00 00:00:00 of alcohol [facility] (finding) Branch Tobacco use and 2018-08-13 2018-08-13 Never used Universit y of exposure 00:00:00 00:00:00 [facility] Alcohol Comment 2018-08-13 2018-08-13 socially Universit y of 00:00:00 00:00:00 [facility] Sex Assigned [birth year] Universit y of 00:00:00 00:00:00 [facility] Smoking Status Start Date Stop Date Source Former smoker 2018-08-13 00:00:00 2018-08-13 00:00:00 Universi ty of [facility] Medications Ordered Filled Start Stop Current Ordering Indication Dosage Frequency Signature Comments Components Source Medication Medication Date Date Medication? Clinician (SIG) Name Name pyridostigm Yes [id number] 60mg Take 1 Univers ine 60 mg 6-17 103 tablet by ity o f tablet 00:00: mouth 3 [place] (three) Medical times Branch daily. pyridostigm 2021- No [id number] 60mg Take 1 Univers ine 60 mg 3-28 06-17 103 tablet by ity of tablet 00:00: 00:00 mouth 2 [place] 00 :00 (two) Medical times Branch daily. predniSONE Yes 10mg Take 1 Unive rs 10 mg 3-11 tablet by ity of tablet 00:00: mouth 2 [place] (two) Medical times Branch daily. DULoxetine Yes TAKE ONE Uni vers 30 mg 2-08 (1) ity of capsule 00:00[place] MOUTH Medical TWICE A Branch DAY. azithromyci Yes TAKE 2 Univ ers n 250 mg 1-21 TABLETS BY ity o f tablet 00:00: MOUTH ON 00 DAY 1, Medical THEN 1 Branch TABLET DAILY ON DAYS 2 TO 5. hydrOXYchlo Yes TAKE ONE Un aaron roQUINE 200 1-21 (1) TABLET it y of mg tablet 00:00: [place]TH [place] 00 TWICE Medical DAILY. Branch gabapentin 2018-09 Yes [id number] 100mg Take 1 Univers 100 mg 2-17 capsule by ity of capsule 00:00: mouth 3 [place] 00 (three) Medical times Branch daily. cetirizine 2017-09 Yes 10mg Take 10 mg U nivers (ZYRTEC) 10 2-04 by mouth ity of mg tablet 11:31: at [place] 23 bedtime. Medical Branch HYDROcodone 2017-09 Yes 1{tbl} Take 1 Un aaron -acetaminop 2-04 tablet by ity of hen 10-325 11:31: mouth [place] mg tablet 23 every 6 Medical (six) Branch hours as needed. ALPRAZolam 2017-09 Yes .5mg Take 0.5 Uni vers (XANAX) 0.5 2-04 mg by ity of mg tablet 11:31: mouth 3 [place] 23 (three) Medical times Branch daily. vit A/vit 2017-09 Yes Take 1 Univer s C/vit 2-04 TAB-CAP/M2 ity of E/zinc/[place] 11:31: [place] mouth [place] (ICAPS 23 daily. Medical AREDS ORAL) Branch Ferrous 2017-09 Yes 1{tbl} Take 1 Univer s Sulfate 2-04 tablet by ity of (HIGH 11:31: mouth [place] POTENCY 23 daily. Medical IRON) 27 mg Branch iron Tab calcium 2017-09 Yes Take 2 Univers carb/vitami 2-04 TAB-CAP/M2 it y of n D2/vit K1 11:31: [place] mouth [place] (CALCIUM- 23 daily. Medica l TAMIN Branch D-VITAMIN K ORAL) estradiol 2017-09 Yes Univers 0.5 mg 1-16 ity of tablet 00:00: [address] lovastatin Yes Univers 20 mg 9-18 ity of tablet 00:00: [address] enalapril Yes Univers 10 mg 9-18 ity of tablet 00:00: [address] Branch levothyroxi Yes Univer s ne 175 mcg 9-18 ity of tablet 00:00: [address] meloxicam Yes Univers 15 mg 9-18 ity of tablet 00:00: [address] montelukast Yes Univer s 10 mg 9-18 ity of tablet 00:00: [address] omeprazole Yes Univers 20 mg 9-18 ity of capsule 00:00: [address] Immunizations Ordered Filled Immunization Date Status Comments Sour e Immunization Name Name SARS-COV-2 COVID-19 2020-12-06 Completed Unive rsity of PFIZER VACCINE 00:00:00 [facility] SARS-COV-2 COVID-19 2020-11-15 Completed Unive rsity of PFIZER VACCINE 00:00:00 [facility] Procedures This patient has no known procedures. Encounters Start End Encounter Admission Attending Care Care Encounter Source Date/Time Date/Time Type Type Clinicians Facility Department ID 2022-04-18 2022-04-18 Outpatient HUBER Andino PAIN [id number] [facility] 10:07:00 10:07:00 Francisco Chuck [place] [facility] 2022-04-18 2022-04-18 Outpatient FOG_Halamic AOSM AOSM [id number] Rh[place] 00:00:00 00:00:00 ek_Mar_NP [id number] [facility] 2022-04-18 2022-04-18 Outpatient FLORENCE EdmondsSM [id number] 00:00:00 00:00:00 Francisco Chaudhary [id number] 2022-04-04 2022-04-04 Outpatient HUBER Andino PAIN [id number] [facility] 13:00:00 13:00:00 Francisco Casas [place] [facility] 2022-04-04 2022-04-04 Outpatient FOG_Halamic AOSM AOSM [id number] [place] 00:00:00 00:00:00 ek_Mar_NP [id number] [facility] 2022-04-04 2022-04-04 Outpatient FLORENCE EdmondsSM [id number] 00:00:00 00:00:00 Francisco Chaudhary [id number] 2022-02-21 2022-02-21 Telephone [facility] [id number] Univers 00:00:00 00:00:00 [facility] [id number] ity of SABA 4.2.7.2.686 Esa as EUNICE?BLEA [phone] De dical [address] MEDICAL OFFICE BUILDING 2022-02-13 2022-02-13 Outpatient FOG_Halamic AOSM AOSM [id number] [place] 01:11:00 01:11:00 ek_Mar_NP [id number] [facility] 2022-02-13 2022-02-13 Outpatient Halamicmunir, AOSM AO [id number] 00:00:00 00:00:00 Kimberly Hernández [id number] 2022-02-02 2022-02-02 Outpatient FOG_Halamic AOSM AOSM [id number] [place] 03:00:00 03:00:00 ek_Mar_NP [id number] Orth [facility] 2022-01-17 2022-01-17 Outpatient HERLINDA Edmonds [facility] PAIN [id number] [facility] 13:01:00 13:01:00 Francisco 59 [place] [facility] 2021-11-14 2021-11-14 Inpatient HERLINDA Edmonds [facility] PAIN [id number] [facility] 10:17:00 10:17:00 Francisco 22 [place] [facility] 2021-05-05 2021-05-05 Outpatient HERLINDA Edmonds [facility] PAIN [id number] [facility] 08:19:00 08:19:00 Francisco 17 [place] [facility] 2021-02-24 2021-02-24 Outpatient HERLINDA Edmonds [facility] PAIN [id number] [facility] 08:10:00 08:10:00 Francisco 05 [place] [facility] 2020-11-23 2020-11-23 Refill [facility] [id number] 00:00:00 00:00:00 Sandip Esteves [id number] [place] 4.2.7.2.686 [facility] [phone] [address] 2020-10-29 2020-10-29 Inpatient HUBER Andino [facility]O [id number] [facility] 13:31:52 13:31:52 Francisco Morris [place] [facility] 2020-10-11 2020-10-14 Inpatient THALIA AndinoTO PAIN [id number] [facility] 09:00:00 00:24:46 Francisco Morris [place] [facility] 2020-09-28 2020-09-28 [facility] [id number] 14:36:13 16:10:37 Visit Sandip Esteves [id number] [place] 4.2.7.2.686 [facility] [id number] [facility] 092 [facility] 2020-07-20 2020-07-20 Outpatient Edmonds, [facility] PAIN [id number] [facility] 09:30:00 09:30:00 Francisco 21 [place] [facility] 2020-05-05 2020-05-05 Outpatient Doctor, [facility] PAIN [id number] [facility] 08:30:00 08:30:00 Darren 00 [place] [facility] 2020-03-30 2020-04-08 Inpatient EL Doctor, [facility] PAIN [id number] [facility] 13:00:00 12:04:22 Darren 37 [place] [facility] 2020-03-08 2020-03-08 Outpatient Doctor, [facility] RADI [id number] [facility] 10:45:00 10:45:00 Darren 04 [place] [facility] 2020-01-13 2020-01-13 Outpatient Doctor, HC[facility] PAIN [id number] [facility] 11:45:00 11:45:00 Darren 15 [place] [facility] 2019-11-10 2019-11-13 Inpatient EL Doctor, HC[facility] PAIN [id number] [facility] 11:15:00 21:46:41 Darren 88 [place] [facility] 2019-10-23 2019-10-23 Outpatient Doctor, [facility] PAIN [id number] [facility] 10:00:00 10:00:00 Darren 24 [place] [facility] Results Test Description Test Time Test Comments Results Result [facility] e Comments - XR FLUORO FOR 2022-04-18 SPINE INJ 19:52:00 [facility] : 1940 Sex: F Patient Name: LETICIA VELA Unit No: [id number] EXAMS: CPT CODE: [id number] XR FLUORO FOR SPINE INJ 65220 DIAGNOSTIC LUMBAR FACET DORSAL BRANCH BLOCK REFERRAL PHYSICIAN: None Preoperative diagnosis: Lumbar spondylosis without radiculopathy or myelopathy Postoperative diagnosis: Lumbar spondylosis without radiculopathy or myelopathy Procedure performed: Fluoroscopically guided needle localization of the bilateral L3 and bilateral L4 dorsal median branches and bilateral L5 dorsal rami with diagnostic blockade. Findings:Blockade of the bilateral L4-5 and L5-S1 facets via the dorsal branches produced complete relief the patient's low back pain with standing and sitting. Preinjection VAS 5/10. Postinjection VAS 0/10. Consider RFTC. Estimated blood loss: Minimal Anesthesia: TIVA Complications: None Details of procedure: After obtaining stable vital signs, informed consent and IV access, with no contraindications to proceeding, the patient was taken to the operating room and placed in a prone position with all extremities padded and appropriate monitors placed. The patient was sterilely prepped and draped over the lumbosacral spine. Using fluoroscopic visualization the insertion sites were marked for paravertebral approaches and using standard technique, a 25-gauge needle was guided to the base of each transverse process and sacral ala without paresthesias. Aspiration was negative. Isovue-300 contrast 0.2 mL was injected incrementally with frequent negative aspirations at each site to confirm appropriate spread. There were no signs of intravascular or intrathecal uptake. Bupivacaine 0.75% 0.4 mL was then injected incrementally with frequent negative aspirations at each dorsal branch. There were no signs of intravascular or intrathecal uptake. The patient's vital signs remained stable. All needles were removed and the patient was taken to the PACU in good condition. Electronically Signed: Francisco Edmonds M.D. Image: Image 1 Image: Image 2 at 1952 Reported and signed by: Francisco Edmonds M.D. [place] [facility] NAME: LETICIA VELA [address] [facility] PHYS: Francisco Mcgrath MD [place], [place] [address] : 1940 AGE: 81 SEX: F LOC: RAVINDER PHONE #: [phone] EXAM DATE: 04/18/2022 STATUS: [facility] FAX #: [phone] RAD #: [id number] D/C DT PAGE 1 Signed Report (CONTINUED) Patient Name: LETICIA VELA Unit No: [id number] EXAMS: CPT CODE: [id number] XR FLUORO FOR SPINE INJ 55865 (Continued) CC: Technologist: Magi Mike(Dennis) Transcribed D/ (1951) [facility] [place] NAME: LETICIA VELA [address] [facility] PHYS: Francisco Mcgrath MD [place] [address] : 1940 AGE: 81 SEX: F LOC: RAVINDER PHONE #: [phone] EXAM DATE: 04/18/2022 STATUS: [facility] FA[facility] #: [phone] RAD #: [id number] D/C DT PAGE 2 Signed Report Patient Name: LETICIA VELA Unit No: [id number] EXAMS: CPT CODE: [id number] XR FLUORO FOR SPINE INJ 57499 (Continued) Orig Print D/T: S: 04/18/2022 (1954) [place] [facility] NAME: LETICIA VELA [address] [facility] PHYS: Francisco Mcgrath MD [place] [address] : 1940 AGE: 81 SEX: F LOC: RAVINDER PHONE #: [phone] EXAM DATE: 04/18/2022 STATUS: [facility] FA[facility] #: [phone] RAD #: [id number] D/C DT PAGE 3 Signed Report - XR FLUORO FOR 2022-04-04 SPINE INJ [facility]:30:[address] [facility] 1940 Sex: F Patient Name: LETICIA VELA Unit No: [id number] EXAMS: CPT CODE: [id number] XR FLUORO FOR SPINE INJ 38907 LUMBAR DISCOGRAM AND INTRADISCAL INJECTION REFERRING PHYSICIAN: None PREOPERATIVE DIAGNOSIS: Discogenic low back pain POSTOPERATIVE DIAGNOSIS: Discogenic low back pain. PROCEDURE PERFORMED: Fluoroscopically guided needle localization of the L3-4 and L5-S1 discs with provocative discography and therapeutic intradiscal injection of local anesthetic and steroid. FINDINGS: Both discs showed marked loss of disc space height with diffuse annular degeneration. Provocation was negative. Anesthetic response was positive with the patient noting a moderate reduction of her low back pain. Preinjection VAS 7/10. Postinjection VAS 2/10. Steroid response pending follow-up. ANTIBIOTIC: Cefazolin IV [...] 0.25 mL with lidocaine 4% 0.25 ml, Fnppekrwk343 mg/mL 0.2 ml and triamcinolone 30 mg was then injected at each disc, provocation was recorded and the needles were removed. There were no signs of intravascular or intrathecal uptake. The patient's vital signs remained stable. The patient was taken to the PACU in good condition. Electronically Signed: Francisco Edmonds M.D. Image: Image 1 [place] [facility] NAME: LETICIA VELA [address] [facility] PHYS: Francisco Mcgrath MD [place] [address] : 1940 AGE: 81 SEX: F LOC: RAVINDER PHONE #: [phone] EXAM DATE: 04/04/2022 STATUS: [facility] FA[facility] #: [phone] RAD #: [id number] D/C DT PAGE 1 Signed Report (CONTINUED) Patient Name: LETICIA VELA Unit No: [id number] EXAMS: CPT CODE: [id number] XR FLUORO FOR SPINE INJ 07336 (Continued) Image: Image 2 Image: Image 3 at 2029 Reported and signed by: Francisco Edmonds M.D. CC: Technologist: Magi Mike(R) Transcribed D/ (2029) [facility] [place] NAME: LETICIA VELA [address] [facility] PHYS: Francisco Mcgrath MD [place] [address] : 1940 AGE: 81 SEX: F LOC: RAVINDER PHONE #: [phone] EXAM DATE: 04/04/2022 STATUS: [facility] FA[facility] #: [phone] RAD #: [id number] D/C DT PAGE 2 Signed Report Patient Name: LETICIA VELA Unit No: [id number] EXAMS: CPT CODE: [id number] XR FLUORO FOR SPINE INJ 42944 (Continued) Orig Print D/T: S: 04/04/2022 (2033) [facility] NAME: LETICIA VELA [address] [facility] PHYS: Francisco Mcgrath MD [place] [id number] : 1940 AGE: 81 SEX: F LOC: YSarahMEHRDAD PHONE #: [phone] EXAM DATE: 04/04/2022 STATUS: [facility] FAX #: [phone] [facility] #: [id number] D/C DT PAGE 3 Signed Report - XR FLUORO FOR 2022-01-17 SPINE INJ 19:46:[address] [facility] 1940 Sex: F Patient Name: LETICIA VELA Unit No: [id number] EXAMS: CPT CODE: [id number] XR FLUORO FOR SPINE INJ 48929 LUMBAR FACET INJECTION DIAGNOSTIC REFERRAL PHYSICIAN: None PREOPERATIVE DIAGNOSIS: Lumbar spondylosis without myelopathy or radiculopathy POSTOPERATIVE DIAGNOSIS: Lumbar spondylosis without myelopathy or radiculopathy PROCEDURE PERFORMED: Fluoroscopically guided needle localization of the bilateral L3-4, left L4-5 and left L5-S1 facets with arthrograms and diagnostic injection of local anesthetic and steroid. FINDINGS: Marked degeneration was seen at all joints with marked hypertrophy at the right L3-4 facet. Aspiration was negative. Provocation was negative. Anesthetic response was partial with the patient noting a reduction of her low back pain. Residual pain remained in the left gluteal region. Preinjection VAS 8/10. Postinjection VAS 6/10. Steroid response pending follow-up. [...] intrathecal uptake. Bupivicaine 0.75% 0.25 mL with Lidocaine 4% 0.25 ml and triamcinolone 16 mg was then injected incrementally into each joint. There were no signs of intravascular or intrathecal uptake. The patient's vital signs remained stable. All needles were removed and the patient was taken to the PACU in good condition. Image: Image 1 Image: Image 2 at 1945 Reported and signed by: Francisco Edmonds M.D. [facility] [place] NAME: LETICIA VELA [address] [facility] PHYS: Francisco Mcgrath MD [place] [address] : 1940 AGE: 81 SEX: F LOC: RAVINDER PHONE #: [phone] EXAM DATE: 01/17/2022 STATUS: [facility] FA[facility] #: [phone] RAD #: [id number] D/C DT PAGE 1 Signed Report (CONTINUED) Patient Name: LETICIA VELA Unit No: [id number] EXAMS: CPT CODE: [id number] XR FLUORO FOR SPINE INJ 13480 (Continued) CC: Technologist: Magi Mike(R) Transcribed D/ (1945) [facility] [place] NAME: LETICIA VELA [address] [facility] PHYS: Francisco Mcgrath MD [place] [address] : 1940 AGE: 81 SEX: F LOC: RAVINDER PHONE #: [phone] EXAM DATE: 01/17/2022 STATUS: [facility] #: [phone] RAD #: [id number] D/C DT PAGE 2 Signed Report Patient Name: LETICIA VELA Unit No: [id number] EXAMS: CPT CODE: [id number] XR FLUORO FOR SPINE INJ 18259 (Continued) Orig Print D/T: S: 01/17/2022 (1949) [place] [facility] NAME: LETICIA VELA [address] [facility] PHYS: Francisco Mcgrath MD [place], [place] [address] : 1940 AGE: 81 SEX: F LOC: RAVINDER PHONE #: [phone] EXAM DATE: 01/17/2022 STATUS: REG [facility] FAX #: [phone] RAD #: [id number] D/C DT PAGE 3 Signed Report - XR FLUORO FOR 2021-11-14 SPINE INJ 19:44:00 [facility] 1940 Sex: F Patient Name: LETICIA VELA Unit No: [id number] EXAMS: CPT CODE: [id number] XR FLUORO FOR SPINE INJ 58327 LUMBAR DISCOGRAM AND INTRADISCAL INJECTION REFERRING PHYSICIAN: None PREOPERATIVE DIAGNOSIS: Discogenic low back pain POSTOPERATIVE DIAGNOSIS: Symptomatic multilevel lumbar disc degeneration PROCEDURE PERFORMED: Fluoroscopically guided needle localization of the L3-4, L4-5 and L5-S1 discs with provocative discography and therapeutic intradiscal injection of local anesthetic and steroid. FINDINGS: Marked loss of disc space height is seen at each level with vacuum phenomena and diffuse annular degeneration. Provocation was negative. Anesthetic response was positive with the patient noting relief of her low back pain. Preinjection VAS 7/10. Postinjection VAS 0/10. [...] 0.25 mL with lidocaine 4% 0.25 ml, Oubmjvonb699 mg/mL 0.2 ml and triamcinolone 30 mg was then injected, provocation was recorded and the needles were removed. There were no signs of intravascular or intrathecal uptake. The patient's vital signs remained stable. The patient was taken to the PACU in good condition. Image: Image 1 Image: Image 2 [facility] NAME: LETICIA VELA [address] [facility] PHYS: Francisco Mcgrath MD [place], [place] [address] : 1940 AGE: 81 SEX: F LOC: RAVINDER PHONE #: [phone] EXAM DATE: 11/14/2021 STATUS: [facility] FA[facility] #: [phone] RAD #: [id number] D/C DT PAGE 1 Signed Report (CONTINUED) Patient Name: LETICIA VELA Unit No: [id number] EXAMS: CPT CODE: [id number] XR FLUORO FOR SPINE INJ 30992 (Continued) Image: Image 3 at 1941 Reported and signed by: Francisco Edmonds M.D. CC: Technologist: Magi Mike(R) Transcribed D/ (1941) [facility] LET[facility]EL[facility] [address] [facility] PHYS: Francisco Mcgrath MD [place], [place] [address] : 1940 AGE: 81 SEX: F LOC: RAVINDER PHONE #: [phone] EXAM DATE: 11/14/2021 STATUS: [facility] #: [phone] RAD #: [id number] D/C DT PAGE 2 Signed Report Patient Name: LETICIA VELA Unit No: [id number] EXAMS: CPT CODE: [id number] XR FLUORO FOR SPINE INJ 61065 (Continued) Orig Print D/T: S: 11/14/2021 (1946) [place] [facility] NAME: LETICIA VELA [address] [facility] PHYS: Francisco Mcgrath MD [place], [place] [address] : 1940 AGE: 81 SEX: F LOC: RAVINDER PHONE #: [phone] EXAM DATE: 11/14/2021 STATUS: [facility] #: [phone] RAD #: [id number] D/C DT PAGE 3 Signed Report - XR FLUORO FOR 2021-05-05 SPINE INJ 18:46:00 [facility] : 1940 Sex: F Patient Name: LETICIA VELA Unit No: [id number] EXAMS: CPT CODE: [id number] XR FLUORO FOR SPINE INJ 51978 LUMBAR DISCOGRAM AND INTRADISCAL INJECTION REFERRING PHYSICIAN: [...] 0.25 mL with lidocaine 4% 0.25 ml, Fdkhtypky703 mg/mL 0.2 ml and triamcinolone 26 mg was then injected, provocation was recorded and the needles were removed. There were no signs of intravascular or intrathecal uptake. The patient's vital signs remained stable. The patient was taken to the PACU in good condition. Image: Image [address] [place] [facility] NAME: LETICIA VELA [address] [facility] PHYS: Francisco Mcgrath MD [place], [place] [address] : 1940 AGE: 80 SEX: F LOC: Y.MEHRDAD PHONE #: [phone] EXAM DATE: 05/05/2021 [facility]: [facility] #: [phone] RAD #: [id number] D/C DT PAGE 1 Signed Report (CONTINUED) Patient Name: LETICIA VELA Unit No: [id number] EXAMS: CPT CODE: [id number] XR FLUORO FOR SPINE INJ 38410 (Continued) Image: Image 2 Image: Image 3 at 1846 Reported and signed by: Francisco Edmonds M.D. CC: Technologist: Magi Mike(R) Transcribed D/ (1845) [facility] [facility] NAME: LETICIA VELA [address] [facility] PHYS: Francisco Mcgrath MD [place], [place] [address] : 1940 AGE: 80 SEX: F LOC: RAVINDER PHONE #: [phone] EXAM DATE: 05/05/2021 STATUS: [facility] FAX #: [phone] RAD #: [id number] D/C DT PAGE 2 Signed Report Patient Name: LETICIA VELA Unit No: [id number] EXAMS: CPT CODE: [id number] XR FLUORO FOR SPINE INJ 01041 (Continued) Orig Print D/T: S: 05/05/2021 (1848) [facility] NAME: LETICIA VELA [address] [facility] PHYS: Francisco Mcgrath MD [place], [place] [address] : 1940 AGE: 80 SEX: F LOC: RAVINDER PHONE #: [phone] EXAM DATE: 05/05/2021 STATUS: [facility] FAX #: [phone] RAD #: [id number] D/C DT PAGE 3 Signed Report - XR FLUORO FOR 2021-02-24 SPINE INJ 20:26:00 [facility] 1940 Sex: F Patient Name: LETICIA VELA Unit No: [id number] EXAMS: CPT CODE: [id number] XR FLUORO FOR SPINE INJ 85284 DIAGNOSTIC CERVICAL TRANSFORAMINAL EPIRADICULAR INJECTION REFERRAL PHYSICIAN: [...] 1 Image: Image 2 Image: Image 3 [facility] NAME: LETICIA VELA [address] [facility] PHYS: Francisco Mcgrath MD [place], [place] [address] : 1940 AGE: 80 SEX: F LOC: RAVINDER PHONE #: [phone] EXAM DATE: 02/24/2021 STATUS: [facility] FAX #: [phone] RAD #: [id number] D/C DT PAGE 1 Signed Report (CONTINUED) Patient Name: LETICIA VELA Unit No: [id number] EXAMS: CPT CODE: [id number] XR FLUORO FOR SPINE INJ 13991 (Continued) at 2025 Reported and signed by: Francisco Edmonds M.D. CC: Technologist: Magi Mike(R) Transcribed D/ (2025) [facility]: LETICIA VELA [address] [facility] PHYS: Francisco Mcgrath MD [place] [address] : 1940 AGE: 80 SEX: F LOC: RAVINDER PHONE #: [phone] EXAM DATE: 02/24/2021 STATUS: [facility] FAX #: [phone] RAD #: [id number] D/C DT PAGE 2 Signed Report Patient Name: LETICIA VELA Unit No: [id number] EXAMS: CPT CODE: [id number] XR FLUORO FOR SPINE INJ 32337 (Continued) Orig Print D/T: S: 02/24/2021 (2029) [facility] NAME: LETICIA VELA [address] [facility] PHYS: Francisco Mcgrath MD [place] [address] : 1940 AGE: 80 SEX: F LOC: RAVINDER PHONE #: [phone] EXAM DATE: 02/24/2021 STATUS: [facility] FAX #: [phone] RAD #: [id number] D/C DT PAGE 3 Signed Report - XR C-SPINE 6+V 2021-01-21 12:29:00 [facility] : 1940 Sex: F Patient Name: LETICIA VELA Unit No: [id number] EXAMS: CPT CODE: [id number] XR C-SPINE 6+V 60829 Cervical spine 5 views plus flexion and [...] MD Technologist: LENNY HAWKINS, RT(R) Transcribed D/ (1229) tASHLEYR.JCL [facility] NAME: LETICIA VELA [address] [facility] PHYS: Francisco Mcgrath MD : 1940 AGE: 80 SEX: F [place], [place] [address] LOC: Y.MRI PHONE #: [phone] EXAM DATE: 01/20/2021 STATUS: DEP CLI FAX #: [phone] RAD #: [id number] D/C DT PAGE 1 Signed Report Patient Name: LETICIA VELA Unit No: [id number] EXAMS: CPT CODE: [id number] XR C-SPINE 6+V 13419 (Continued) Orig Print D/T: S: 01/21/2021 (1232) [facility] NAME: LETICIA VELA [address] [facility] PHYS: Francisco Mcgrath MD : 1940 AGE: 80 SEX: F [place], [place] [address] LOC: Y.MRI PHONE #: [phone] EXAM DATE: 01/20/2021 STATUS: DEP CLI FAX #: [phone] RAD #: [id number] D/C DT PAGE 2 Signed Report - MRI C-SPINE W/O 2021-01-20 CONT 15:16:00 [facility] : 1940 Sex: F Patient Name: LETICIA VELA Unit No: [id number] EXAMS: CPT CODE: [id number] MRI C-SPINE W/O CONT 04182 DIAGNOSIS: 1. At C2-3 there is no [...] Edmonds MD Technologist: MELANIE GRANADOS Transcribed D/ (1515) EugeneJCL [facility] NAME: LETICIA VELA [address] [facility] PHYS: Francisco Mcgrath MD : 1940 AGE: 80 SEX: F [place] [address] LOC: Y.MRI PHONE #: [phone] EXAM DATE: 01/20/2021 STATUS: REG CLI FAX #: [phone] RAD #: [id number] D/C DT PAGE 1 Signed Report Patient Name: LETICIA VELA Unit No: [id number] EXAMS: CPT CODE: [id number] MRI C-SPINE W/O CONT 90734 (Continued) Orig Print D/T: S: 01/20/2021 (1519) [facility] NAME: LETICIA VELA [address] [facility] PHYS: Francisco Mcgrath MD : 1940 AGE: 80 SEX: F [place] [address] LOC: Y.MRI PHONE #: [phone] EXAM DATE: 01/20/2021 STATUS: REG CLI FAX #: [phone] RAD #: [id number] D/C DT PAGE 2 Signed Report - XR FLUORO FOR 2020-11-01 SPINE INJ 20:25:00 [facility] : 1940 Sex: F Patient Name: LETICIA VELA Unit No: [id number] EXAMS: CPT CODE: [id number] XR FLUORO FOR SPINE INJ 63874 LUMBAR FACET INJECTION DIAGNOSTIC REFERRAL PHYSICIAN: None [...] condition. Image: Image 1 Image: Image 2 [facility] NAME: LETICIA VELA [address] [facility] PHYS: Francisco Mcgrath MD [place], [place] [address] : 1940 AGE: 80 SEX: F LOC: RAVINDER PHONE #: [phone] EXAM DATE: 11/01/2020 STATUS: [facility] FAX #: [phone] RAD #: [id number] D/C DT PAGE 1 Signed Report (CONTINUED) Patient Name: LETICIA VELA Unit No: [id number] EXAMS: CPT CODE: [id number] XR FLUORO FOR SPINE INJ 23965 (Continued) at 2024 Reported and signed by: Francisco Edmonds M.D. CC: Technologist: Magi Mike(R) Transcribed D/ (2024) [facility]: LETICIA VELA [address] [facility] PHYS: Francisco Mcgrath MD [place], [place] [address] : 1940 AGE: 80 SEX: F LOC: RAVINDER PHONE #: [phone] EXAM DATE: 11/01/2020 STATUS: [facility] FAX #: [phone] RAD #: [id number] D/C DT PAGE 2 Signed Report Patient Name: LETICIA VELA Unit No: [id number] EXAMS: CPT CODE: [id number] XR FLUORO FOR SPINE INJ 28549 (Continued) Orig Print D/T: S: 11/01/2020 (2027) [facility] NAME: LETICIA VELA [address] [facility] PHYS: Francisco Mcgrath MD [place] [address] : 1940 AGE: 80 SEX: F LOC: RAVINDER PHONE #: [phone] EXAM DATE: 11/01/2020 STATUS: [facility] FAX #: [phone] RAD #: [id number] D/C DT PAGE 3 Signed Report - XR FLUORO FOR 2020-10-11 SPINE INJ 20:22:[address] [facility] 1940 Sex: F Patient Name: LETICIA VELA Unit No: [id number] EXAMS: CPT CODE: [id number] XR FLUORO FOR SPINE INJ 23108 LUMBAR DISCOGRAM AND INTRADISCAL INJECTION REFERRING PHYSICIAN: [...] 0.25 mL with lidocaine 4% 0.5 ml, Suughpimd456 mg/mL 0.2 ml and triamcinolone 26 mg was then injected, provocation was recorded and the needles were removed. There were no signs of intravascular or intrathecal uptake. The patient's vital signs remained stable. The patient was taken to the PACU in good condition. Of note images fill to transfer on the L3-4 and partially on the L4-5 discs. [facility] NAME: LETICIA VELA [address] [facility] PHYS: Francisco Mcgrath MD [place], [place] [address] : 1940 AGE: 80 SEX: F LOC: RAVINDER PHONE #: [phone] EXAM DATE: 10/11/2020 STATUS: [facility] FAX #: [phone] RAD #: [id number] D/C DT PAGE 1 Signed Report (CONTINUED) Patient Name: LETICIA VELA Unit No: [id number] EXAMS: CPT CODE: [id number] XR FLUORO FOR SPINE INJ 61991 (Continued) at 2021 Reported and signed by: Francisco Edmonds M.D. CC: Technologist: Magi Mike(R) Transcribed D/ (2021) Rosio [facility] NAME: LETICIA VELA [address] [facility] PHYS: Francisco Mcgrath MD [place], [place] [address] : 1940 AGE: 80 SEX: F LOC: RAVINDER PHONE #: [phone] EXAM DATE: 10/11/2020 STATUS: [facility] FAX #: [phone] RAD #: [id number] D/C DT PAGE 2 Signed Report Patient Name: LETICIA VELA Unit No: [id number] EXAMS: CPT CODE: [id number] XR FLUORO FOR SPINE INJ 88717 (Continued) Orig Print D/T: S: 10/11/2020 (2025) [facility] NAME: LETICIA VELA [address] [facility] PHYS: Francisco Mcgrath MD [place], [place] [address] : 1940 AGE: 80 SEX: F LOC: RAVINDER PHONE #: [phone] EXAM DATE: 10/11/2020 STATUS: [facility] FAX #: [phone] RAD #: [id number] D/C DT PAGE [address] SPECT (EG, 2020-08-30 HEAD, NECK, 14:57:58 CHEST, PELVIS) [facility]: [facility]29193] LETICIA VELA : 1940 Sex: F Addendum created at 01/07/2021 10:28:49 AM:Addendum:Planar imaging only of the cervical spine is demonstrated. Approximate mild to moderate midline uptake is noted at C5-6 and C6-7. No significant facet localization is observed. Again note made of moderate bilateral acromioclavicular and glenohumeral joint uptake.Addendum by: Darwin Dudley, [facility] INDICATION: M51.36 Other intervertebral disc degeneration, lumbar gronwmN02.16 Intervertebral disc disorders with radiculopathy, lumbar regionMODALITY: [...] uptake is otherwise most conspicuous.IMPRESSION: See comments above.[facility] 147: 3570F - XR FLUORO FOR 2020-07-20 SPINE INJ 18:21:[address] [facility] 1940 Sex: F Patient Name: LETICIA VELA Unit No: [id number] EXAMS: CPT CODE: [id number] XR FLUORO FOR SPINE INJ 91778 LUMBAR EPIRADICULAR INJECTION REFERRAL PHYSICIAN: None PREOPERATIVE [...] CC: Technologist: Magi Mike(Dennis) Transcribed D/ (1820) [facility] NAME: LETICIA VELA [address] [facility] PHYS: Francisco Mcgrath MD [place] [address] : 1940 AGE: 79 SEX: F LOC: RAVINDER PHONE #: [phone] EXAM DATE: 07/20/2020 STATUS: [facility] FAX #: [phone] RAD #: [id number] D/C DT PAGE 1 Signed Report Patient Name: LETICIA VELA Unit No: [id number] EXAMS: CPT CODE: [id number] XR FLUORO FOR SPINE INJ 60581 (Continued) Orig Print D/T: S: 07/20/2020 (1824) [facility] NAME: LETICIA VELA [address] [facility] PHYS: Francisco Mcgrath MD [place], [place] [address] : 1940 AGE: 79 SEX: F LOC: RAVINDER PHONE #: [phone] EXAM DATE: 07/20/2020 STATUS: [facility] FAX #: [phone] RAD #: [id number] D/C DT PAGE 2 Signed Report - XR FLUORO FOR 2020-05-05 Patient Name: SPINE INJ 12:28:00 LETICIA VELA Unit No: [id number] EXAMS: CPT CODE: [id number] XR FLUORO FOR SPINE INJ 70572 CERVICAL TRANSFORAMINAL INJECTION REFERRING PHYSICIAN: PREOPERATIVE DIAGNOSIS: [...] taken to the PACU in good condition. [facility] NAME: LETICIA VELA [address] [place] [address] PHYS: Darren Shore MD [place], [place] [address] : 1940 AGE: 79 SEX: F LOC: RAVINDER PHONE #: [phone] EXAM DATE: 05/05/2020 STATUS: [facility] FAX #: [phone] RAD #: [id number] D/C DT PAGE 1 Signed Report (CONTINUED) Patient Name: LETICIA VELA Unit No: [id number] EXAMS: CPT CODE: [id number] XR FLUORO FOR SPINE INJ 42560 (Continued) at 1228 Reported and signed by: Darren Andres M.D. CC: Darren Andres MD Technologist: MICHAEL WILLIS RT(R) Transcribed D/ (1228) tKAVEHD [facility] NAME: LETICIA VELA [address] [place] [address] PHYS: Darren Shore MD [place], [place] [address] : 1940 AGE: 79 SEX: F LOC: RAVINDER PHONE #: [phone] EXAM DATE: 05/05/2020 STATUS: [facility] FAX #: [phone] RAD #: [id number] D/C DT PAGE 2 Signed Report Patient Name: LETICIA VELA Unit No: [id number] EXAMS: CPT CODE: [id number] XR FLUORO FOR SPINE INJ 28597 (Continued) Orig Print D/T: S: 05/05/2020 (1231) [facility] NAME: LETICIA VELA [address] [facility] PHYS: DOCLUIS EDUARDO - DoctorDarren MD [place], [place] [address] : 1940 AGE: 79 SEX: F LOC: RAVINDER PHONE #: [phone] EXAM DATE: 05/05/2020 STATUS: [facility] FAX #: [phone] RAD #: [id number] D/C DT PAGE 3 Signed Report - XR FLUORO FOR 2020-03-30 Patient Name: SPINE INJ 11:43:00 LETICIA VELA Unit No: [id number] EXAMS: CPT CODE: [id number] XR FLUORO FOR SPINE INJ 12036 LUMBAR FACET INJECTION REFERRING PHYSICIAN: PREOPERATIVE DIAGNOSIS: [...] Reported and signed by: Darren Andres M.D. [facility] NAME: LETICIA VELA [address] [facility] PHYS: Darren Shore MD [place] [address] : 1940 AGE: 79 SEX: F LOC: RAVINDER PHONE #: [phone] EXAM DATE: 03/30/2020 STATUS: REG SD FAX #: [phone] RAD #: [id number] D/C DT PAGE 1 Signed Report (CONTINUED) Patient Name: LETICIA VELA Unit No: [id number] EXAMS: CPT CODE: [id number] XR FLUORO FOR SPINE INJ 49539 (Continued) CC: Technologist: Magi Mike(R) Transcribed D/ (1143) Chung [facility] NAME: LETICIA VELA [address] [facility] PHYS: Darren Shore MD [place] [address] : 1940 AGE: 79 SEX: F LOC: RAVINDER PHONE #: [phone] EXAM DATE: 03/30/2020 STATUS: REG SDC FAX #: [phone] RAD #: [id number] D/C DT PAGE 2 Signed Report Patient Name: LETICIA VELA Unit No: [id number] EXAMS: CPT CODE: [id number] XR FLUORO FOR SPINE INJ 87851 (Continued) Orig Print D/T: S: 03/30/2020 (7519) [facility] NAME: LETICIA VELA [address] [facility] PHYS: Darren Shore MD [place] [address] : 1940 AGE: 79 SEX: F LOC: YSarahMEHRDAD PHONE #: [phone] EXAM DATE: 03/30/2020 STATUS: REG SDC FAX #: [phone] RAD #: [id number] D/C DT PAGE 3 Signed Report - XR L-SPINE 2020-03-09 Patient Name: W/BEND VIEW 07:25:00 LETICIA VELA Unit No: [id number] EXAMS: CPT CODE: [id number] XR L-SPINE W/BEND VIEW 82039 LUMBAR SPINE 5 VIEWS PLUS FLEXION AND [...] MD Technologist: Bethany Hermosillo RT.(R) Transcribed D/ (07) Hipolito [facility] NAME: LETICIA VELA [address] [place] [address] PHYS: Darren Shore MD : 1940 AGE: 79 SEX: F [place] [address] LOC: YDARION PHONE #: [phone] EXAM DATE: 03/08/2020 STATUS: DEP CLI FAX #: [phone] RAD #: [id number] D/C DT PAGE 1 Signed Report Patient Name: LETICIA VELA Unit No: [id number] EXAMS: CPT CODE: [id number] XR L-SPINE W/BEND VIEW 64780 (Continued) Orig Print D/T: S: 03/09/2020 (0729) [facility] NAME: LETICIA VELA [address] PHYS: DOCUD - Doctor,Darren Harper MD : 1940 AGE: 79 SEX: F [place], [place] [address] LOC: Y.MRI PHONE #: [phone] EXAM DATE: 03/08/2020 STATUS: DEP CLI FAX #: [phone] RAD #: [id number] D/C DT PAGE 2 Signed Report - MRI L-SPINE W/O 2020-03-08 Patient Name: CONT 14:33:00 LETICIA VELA Unit No: [id number] EXAMS: CPT CODE: [id number] MRI L-SPINE W/O CONT 83647 TECHNIQUE: Multiplanar, multisequence MRI examination performed of [...] where there is severe central canal stenosis. [facility] NAME: LETICIA VELA [address] [place] [address] PHYS: Darren Shore MD : 1940 AGE: 79 SEX: F [place] [address] LOC: Y.MRI PHONE #: [phone] EXAM DATE: 03/08/2020 STATUS: REG CLI FAX #: [phone] RAD #: [id number] D/C DT PAGE 1 Signed Report (CONTINUED) Patient Name: LETICIA VELA Unit No: [id number] EXAMS: CPT CODE: [id number] MRI L-SPINE W/O CONT 16471 (Continued) at 1433 Reported and signed by: Quentin Man M.D. CC: Darren Andres MD Technologist: Xiomara Mg, RT(R) Transcribed D/ (1433) [facility]: LETICIA VELA [address] [place] [address] PHYS: Darren Shore MD : 1940 AGE: 79 SEX: F [place] [address] LOC: Y.MRI PHONE #: [phone] EXAM DATE: 03/08/2020 STATUS: REG CLI FAX #: [phone] RAD #: [id number] D/C DT PAGE 2 Signed Report Patient Name: LETICIA VELA Unit No: [id number] EXAMS: CPT CODE: [id number] MRI L-SPINE W/O CONT 99204 (Continued) Orig Print D/T: S: 03/08/2020 (1436) [facility] NAME: LETICIA VELA [address] [place] [address] PHYS: Darren Shore MD : 1940 AGE: 79 SEX: F [place] [address] LOC: Y.MRI PHONE #: [phone] EXAM DATE: 03/08/2020 STATUS: REG CLI FAX #: [phone] RAD #: [id number] D/C DT PAGE 3 Signed Report - XR FLUORO FOR 2020-01-13 Patient Name: SPINE INJ 10:52:00 LETICIA VELA Unit No: [id number] EXAMS: CPT CODE: [id number] XR FLUORO FOR SPINE INJ 99786 Right SHOULDER INJECTION REFERRING PHYSICIAN: PREOPERATIVE DIAGNOSIS: [...] MAREK CHEEK RT(R) Transcribed D/ (1052) EugeneUVD [facility] NAME: LETICIA VELA [address] [facility] PHYS: DOCUD - Darren Andres MD [place], [place] [address] : 1940 AGE: 79 SEX: F LOC: RAVINDER PHONE #: [phone] EXAM DATE: 01/13/2020 STATUS: [facility] FAX #: [phone] RAD #: [id number] D/C DT PAGE 1 Signed Report Patient Name: LETICIA VELA Unit No: [id number] EXAMS: CPT CODE: [id number] XR FLUORO FOR SPINE INJ 52161 (Continued) Orig Print D/T: S: 01/13/2020 (1056) [facility] NAME: LETICIA VELA [address] [facility] PHYS: JAIR - DoctorDarren MD [place], [place] [address] : 1940 AGE: 79 SEX: F LOC: RAVINDER PHONE #: [phone] EXAM DATE: 01/13/2020 STATUS: REG SDC FAX #: [phone] RAD #: [id number] D/C DT PAGE 2 Signed Report - XR FLUORO FOR 2019-11-10 Patient Name: SPINE INJ 11:27:00 LETICIA VELA Unit No: [id number] EXAMS: CPT CODE: [id number] XR FLUORO FOR SPINE INJ 63970 LUMBAR TRANSFORAMINAL INJECTION REFERRING PHYSICIAN: PREOPERATIVE DIAGNOSIS: [...] Reported and signed by: Darren Andres M.D. [facility] NAME: LETICIA VELA [address] [facility] PHYS: Darren Shore MD [place] [address] : 1940 AGE: 79 SEX: F LOC: RAVINDER PHONE #: [phone] EXAM DATE: 11/10/2019 STATUS: REG SD FAX #: [phone] RAD #: [id number] D/C DT PAGE 1 Signed Report (CONTINUED) Patient Name: LETICIA VELA Unit No: [id number] EXAMS: CPT CODE: [id number] XR FLUORO FOR SPINE INJ 87750 (Continued) CC: Technologist: Magi Mike(R) Transcribed D/ (1127) tMERON [facility] NAME: LETICIA VELA [address] [facility] PHYS: Darren Shore MD [place] [address] : 1940 AGE: 79 SEX: F LOC: RAVINDER PHONE #: [phone] EXAM DATE: 11/10/2019 STATUS: REG SD FAX #: [phone] RAD #: [id number] D/C DT PAGE 2 Signed Report Patient Name: LETICIA VELA Unit No: [id number] EXAMS: CPT CODE: [id number] XR FLUORO FOR SPINE INJ 93519 (Continued) Orig Print D/T: S: 11/10/2019 (1130) [facility] NAME: LETICIA VELA [address] PHYS: DOCUD - DoctorDarren MD [place], [place] [address] : 1940 AGE: 79 SEX: F LOC: RAVINDER PHONE #: [phone] EXAM DATE: 11/10/2019 STATUS: [facility] FAX #: [phone] RAD #: [id number] D/C DT PAGE 3 Signed Report - XR FLUORO FOR 2019-10-23 Patient Name: SPINE INJ 13:23:00 LETICIA VELA Unit No: [id number] EXAMS: CPT CODE: [id number] XR FLUORO FOR SPINE INJ 99685 CERVICAL TRANSFORAMINAL INJECTION REFERRING PHYSICIAN: PREOPERATIVE DIAGNOSIS: [...] taken to the PACU in good condition. [facility] NAME: LETICIA VELA [address] [facility] PHYS: Darren Shore MD [place] [address] : 1940 AGE: 79 SEX: F LOC: RAVINDER PHONE #: [phone] EXAM DATE: 10/23/2019 STATUS: REG SDC FAX #: [phone] RAD #: [id number] D/C DT PAGE 1 Signed Report (CONTINUED) Patient Name: LETICIA VELA Unit No: [id number] EXAMS: CPT CODE: [id number] XR FLUORO FOR SPINE INJ 01969 (Continued) at 1323 Reported and signed by: Darren Andres M.D. CC: Darren Andres MD Technologist: MAREK CHEEK RT(R) Transcribed D/ (1323) Chung [facility] NAME: LETICIA VELA [address] [facility] PHYS: Darren Shore MD [place] [address] : 1940 AGE: 79 SEX: F LOC: RAVINDER PHONE #: [phone] EXAM DATE: 10/23/2019 STATUS: REG SD FAX #: [phone] RAD #: [id number] D/C DT PAGE 2 Signed Report Patient Name: LETICIA VELA Unit No: [id number] EXAMS: CPT CODE: [id number] XR FLUORO FOR SPINE INJ 55917 (Continued) Orig Print D/T: S: 10/23/2019 (1326) [facility] NAME: LETICIA VELA [address] [facility] PHYS: Darren Shore MD [place] [address] : 1940 AGE: 79 SEX: F LOC: RAVINDER PHONE #: [phone] EXAM DATE: 10/23/2019 STATUS: REG SDC FAX #: [phone] RAD #: [id number] D/C DT PAGE 3 Signed Report - XR FLUORO FOR 2019-06-26 Patient Name: SPINE INJ 12:23:00 LETICIA VELA Unit No: [id number] EXAMS: CPT CODE: [id number] XR FLUORO FOR SPINE INJ 31661 LUMBAR FACET INJECTION REFERRING PHYSICIAN: PREOPERATIVE DIAGNOSIS: [...] taken to the PACU in good condition. [facility] NAME: LETICIA VELA [address] [facility] PHYS: DOCUD - Doctor,Darren Harper MD [place], [place] [address] : 1940 AGE: 78 SEX: F LOC: RAVINDER PHONE #: [phone] EXAM DATE: 06/26/2019 STATUS: [facility] FAX #: [phone] RAD #: [id number] D/C DT PAGE 1 Signed Report (CONTINUED) Patient Name: LETICIA VELA Unit No: [id number] EXAMS: CPT CODE: [id number] XR FLUORO FOR SPINE INJ 05765 (Continued) at 1223 Reported and signed by: Darren Andres M.D. CC: Darren Andres MD Technologist: ESTEFANY PENA RT(R) Transcribed D/ (1223) Chung [facility] NAME: LETICIA VELA [address] [place] [address] PHYS: Darren Shore MD [place] [address] : 1940 AGE: 78 SEX: F LOC: RAVINDER PHONE #: [phone] EXAM DATE: 06/26/2019 STATUS: REG [email or web address] FAX #: [phone] RAD #: [id number] D/C DT PAGE 2 Signed Report Patient Name: LETICIA VELA Unit No: [id number] EXAMS: CPT CODE: [id number] XR FLUORO FOR SPINE INJ 53866 (Continued) Orig Print D/T: S: 06/26/2019 (1226) [facility] NAME: LETICIA VELA [address] [place] [address] PHYS: Darren Shore MD [place] [address] : 1940 AGE: 78 SEX: F LOC: RAVINDER PHONE #: [phone] EXAM DATE: 06/26/2019 STATUS: REG [place] FAX #: [phone] RAD #: [id number] D/C DT PAGE 3 Signed Report - XR FLUORO FOR 2019-03-14 Patient Name: SPINE INJ 13:11:00 LETICIA VELA Unit No: [id number] EXAMS: CPT CODE: [id number] XR FLUORO FOR SPINE INJ 55512 LUMBAR TRANSFORAMINAL INJECTION REFERRING PHYSICIAN: PREOPERATIVE DIAGNOSIS: [...] and signed by: Darren Andres M.D. CC: Lauren Mcmahon MD Technologist: Magi Mike(Dennis) Transcribed D/ (1375) Terrie.UVD [facility] NAME: LETICIA VELA [address] [facility] PHYS: DOCUD - DoctorDarren MD [place], [place] [address] : 1940 AGE: 78 SEX: F LOC: RAVINDER PHONE #: [phone] EXAM DATE: 03/14/2019 STATUS: [facility] FAX #: [phone] RAD #: [id number] D/C DT PAGE 1 Signed Report Patient Name: LETICIA VELA Unit No: [id number] EXAMS: CPT CODE: [id number] XR FLUORO FOR SPINE INJ 90358 (Continued) Orig Print D/T: S: 03/14/2019 (1314) [facility] NAME: LETICIA VELA [address] [facility] PHYS: DOCUD - DoctorDarren MD [place], [place] [address] : 1940 AGE: 78 SEX: F LOC: RAVINDER PHONE #: [phone] EXAM DATE: 03/14/2019 STATUS: [facility] FAX #: [phone] RAD #: [id number] D/C DT PAGE 2 Signed Report - XR FLUORO FOR 2018-12-04 Patient Name: SPINE INJ 15:28:00 LETICIA VELA Unit No: [id number] EXAMS: CPT CODE: [id number] XR FLUORO FOR SPINE INJ 01042 LUMBAR TRANSFORAMINAL INJECTION AND LUMBAR FACET BLOCK [...] a prone position and the lumbosacral spine [facility] NAME: LETICIA VELA [address] [facility] PHYS: DOCUD - Darren Andres MD [place], [place] [address] : 1940 AGE: 78 SEX: F LOC: MelviMEHRDAD PHONE #: [phone] EXAM DATE: 12/04/2018 STATUS: [facility] FAX #: [phone] RAD #: [id number] D/C DT PAGE 1 Signed Report (CONTINUED) Patient Name: LETICIA VELA Unit No: [id number] EXAMS: CPT CODE: [id number] XR FLUORO FOR SPINE INJ 19414 (Continued) was prepped and draped in sterile fashion. [...] was taken to the recovery room. at 5937 Reported and signed by: Darren Andres M.D. CC: Technologist: Magi Mike(Dennis) Transcribed D/ (3866) Terrie.UVD [facility] [facility] NAME: LETICIA VELA [address] [facility] PHYS: Darren Shore MD [place], [place] [address] : 1940 AGE: 78 SEX: F LOC: [facility] PHONE #: [phone] EXAM DATE: 12/04/2018 STATUS: [facility] FA[place] #: [phone] RAD #: [id number] D/C DT PAGE 2 Signed Report Patient Name: LETICIA VELA Unit No: [id number] EXAMS: CPT CODE: [id number] XR FLUORO FOR SPINE INJ [id number] (Continued) Orig Print D/T: S: 12/04/2018 (1531) [facility] NAME: LETICIA VELA [address] [facility] PHYS: Darren Shore MD [place], [place] [address] : 1940 AGE: 78 SEX: F LOC: [facility] PHONE #: [phone] EXAM DATE: 12/04/2018 STATUS: [facility] [place] FA[place] #: [phone] RAD #: [id number] D/C DT PAGE 3 Signed Report
[2022-05-05 11:51] LABS: Urine Blood Negative (Negative); Urine Glucose Negative (Negative); Urine Protein Negative (Negative)
[2022-05-05 12:07] LABS: Urine Bacteria <20 /HPF (<20); Urine RBC None Seen /HPF (None Seen)
[2022-05-05] MEDS ORDERED: ACETAMINOPHEN 500 MG TAB ONE (12:19)
--- NOTE | 2022-05-05 12:22 | RAD REPORT ---
EXAM DESCRIPTION: CT - Head Brain Wo Cont - 05/05/2022 12:13 pm CLINICAL HISTORY: Headache COMPARISON: September 2021 TECHNIQUE: Computed axial tomography of the head was obtained. IV contrast was not requested. All CT scans are performed using dose optimization technique as appropriate and may include automated exposure control or mA/KV adjustment according to patient size. FINDINGS: An intracranial bleed is not seen . The ventricles are normal in caliber. No significant hypodense areas within the brain visualized No extra-axial fluid collection is noted. Fluid within the sinuses/ mastoids is not seen. IMPRESSION: No acute intracranial abnormality is seen. If patient's symptoms persist MRI of the bra in would be recommended.
--- NOTE | 2022-05-05 12:49 | EDPHYS ---
Physician Documentation [facility] Name: Era Agustin Age: 81 yrs Sex: Female : 1940 Arrival Date: 05/05/2022 Time: 11:10 Bed 12 Private MD: Bro Mcmahon T ED Physician Chandan Underwood HPI: 05/05 12:10 This 81 yrs old Female presents to ER via Ambulatory with complaints of Headache. cp 12:10 The patient complains of pain to the right side of head behind eye and right ear. The cp patient describes the headache as aching, waxing and waning. Onset: The symptoms/episode began/occurred 2 day(s) ago. 12:10 Severity of symptoms: in the emergency department the pain is unchanged, despite home cp interventions. 12:10 Associated signs and symptoms: Pertinent negatives: altered mental status, dizziness, cp fever, neck stiffness, Photophobia rash, sinus congestion, sinus tenderness, vision changes, vomiting, weakness. Historical: - Allergies: 11:21 No Known Allergies; iw - PMHx: 11:21 Back pain; Hyperlipidemia; Hypothyroidism; Hypertension; iw - Immunization history:: Client reports receiving the 2nd dose of the Covid vaccine. - Social history:: Smoking status: Patient denies any tobacco usage or history of. ROS: 12:15 Constitutional: Negative for body aches, chills, fever, poor PO intake. cp 12:15 Eyes: Negative for injury, pain, redness, and discharge. cp 12:15 ENT: Negative for drainage from ear(s), ear pain, sore throat, difficulty swallowing, difficulty handling secretions. 12:15 Neck: Negative for pain with movement, pain at rest, stiffness. 12:15 Cardiovascular: Negative for chest pain, edema, palpitations. 12:15 Respiratory: Negative for cough, shortness of breath, wheezing. 12:15 Abdomen/GI: Negative for abdominal pain, nausea, vomiting, and diarrhea. 12:15 Neuro: Positive for headache, Negative for altered mental status, weakness. 12:15 All other systems are negative. Exam: 12:20 Constitutional: The patient appears in no acute distress, alert, awake, cp non-diaphoretic, non-toxic, well developed, well nourished. 12:20 Head/Face: Normocephalic, atraumatic. cp 12:20 Eyes: Periorbital structures: appear normal, Pupils: equal, round, and reactive to light and accomodation, Extraocular movements: intact throughout, Conjunctiva: normal, no exudate, no injection, Sclera: no appreciated abnormality, Lids and lashes: appear normal, bilaterally. 12:20 ENT: External ear(s): are unremarkable, Ear canal(s): are normal, clear, TM's: bulging, is not appreciated, bilaterally, dullness, bilaterally, erythema, is not appreciated, bilaterally, Nose: is normal, Mouth: Lips: moist, Oral mucosa: pink and intact, moist, Posterior pharynx: Airway: no evidence of obstruction, patent. 12:20 Neck: ROM/movement: is normal, is supple, without pain, no range of motions limitations, no nuchal rigidity, Lymph nodes: no appreciated lymphadenopathy. 12:20 Chest/axilla: Inspection: normal. 12:20 Cardiovascular: Rate: normal, Rhythm: regular. 12:20 Respiratory: the patient does not display signs of respiratory distress, Respirations: normal, no use of accessory muscles, no retractions, labored breathing, is not present. 12:20 Abdomen/GI: Exam negative for discomfort, distension, guarding, Inspection: abdomen appears normal. 12:20 Skin: cellulitis, is not appreciated, no rash present. 12:20 Neuro: Orientation: to person, place \T\ time. Mentation: is normal, Cerebellar function: Romberg testing is negative, Motor: moves all fours, strength is normal, Sensation: is normal. Vital Signs: 11:19 BP 163 / 69; Pulse 64; Resp 16; Temp 97.8; Pulse Ox 97% on R/A; Weight 81.65 kg; Height iw 5 ft. 4 in. (162.56 cm); Pain 10/10; 11:19 Body Mass Index 30.90 (81.65 kg, 162.56 cm) iw MDM: 11:24 Patient medically screened. cp 12:00 Differential diagnosis: herpes zoster, hypertensive headache, migraine, subarachnoid cp bleed, subdural hematoma, temporal arteritis, tension headache, trigeminal neuralgia. 12:47 Data reviewed: vital signs, nurses notes, radiologic studies, CT scan. cp 12:47 Counseling: I had a detailed discussion with the patient and/or guardian regarding: the cp historical points, exam findings, and any diagnostic results supporting the discharge/admit diagnosis, radiology results, the need for outpatient follow up, a family practitioner, to return to the emergency department if symptoms worsen or persist or if there are any questions or concerns that arise at home. Response to treatment: the patient's symptoms have mildly improved after treatment, and as a result, I will discharge patient. 05/05 11:24 Order name: Urine Microscopic Only; Complete Time: 12:14 cp 05/05 11:51 Order name: Urine Dipstick-Ancillary; Complete Time: 12:14 EDMS 05/05 11:42 Order name: CT Head Brain wo Cont; Complete Time: 12:31 cp 05/05 11:24 Order name: Urine Dipstick-Ancillary (obtain specimen); Complete Time: 12:13 cp Administered Medications: 12:30 Drug: Tylenol 1000 mg Route: PO; mb8 13:00 Follow up: Response: No adverse reaction; No change in condition mb8 12:48 Drug: Ketorolac 30 mg Route: IM; Site: right deltoid; mb8 13:00 Follow up: Response: No adverse reaction mb8 12:59 Drug: Neurontin (gabapentin) 300 mg Route: PO; mb8 13:00 Follow up: Response: No adverse reaction mb8 Disposition: 17:53 Co-signature as Attending Physician, Chandan Underwood MD I agree with the assessment and kdr plan of care. Disposition Summary: 05/05/22 12:48 Discharge Ordered Location: Home cp Problem: new cp Symptoms: have improved cp Condition: Stable cp Diagnosis - Headache cp Followup: cp - With: Private Physician - When: 2 - 3 days - Reason: Recheck today's complaints Discharge Instructions: - Discharge Summary Sheet cp - General Headache Without Cause cp Forms: - Medication Reconciliation Form cp - Thank You Letter cp - Antibiotic Education cp - Prescription Opioid Use cp Prescriptions: - Fioricet 50-300-40 mg Oral capsule - take 1 capsule by ORAL route every 4 hours as needed; 20 capsule; Refills: 0, cp Product Selection Permitted Signatures: Dispatcher [facility] Chandan Ho MD MD kdr Williams, Irene, RN RN iw Page, Corey, PA PA cp Francisco Carrillo RN RN mb8
--- NOTE | 2022-05-05 12:49 | ER ---
Nurse's Notes [facility] Name: Era Agustin Age: 81 yrs Sex: Female : 1940 Arrival Date: 05/05/2022 Time: 11:10 Bed 12 Private MD: Bro Mcmahon T Diagnosis: Headache Presentation: 05/05 11:19 Chief complaint: Patient states: my head hurts, behind my right eye and pain radiates iw out my right ear, throbbing , started two days ago , is getting worse. Coronavirus screen: At this time, the client does not indicate any symptoms associated with coronavirus-19. Ebola Screen: Patient negative for fever greater than or equal to 101.5 degrees Fahrenheit, and additional compatible Ebola Virus Disease symptoms Patient denies exposure to infectious person. Patient denies travel to an Ebola-affected area in the 21 days before illness onset. No symptoms or risks identified at this time. Initial Sepsis Screen: Does the patient meet any 2 criteria? No. Patient's initial sepsis screen is negative. Does the patient have a suspected source of infection? No. Patient's initial sepsis screen is negative. Risk Assessment: Do you want to hurt yourself or someone else? Patient reports no desire to harm self or others. Onset of symptoms was May 03, 2022. 11:19 Method Of Arrival: Ambulatory iw 11:19 Acuity: CLARENCE 3 iw Triage Assessment: 12:14 Headache History: Denies prior headaches. General: Appears. General: Appears in no mb8 apparent distress. comfortable, Behavior is calm, cooperative, appropriate for age. Pain: Complains of pain in right ear Pain began 2-3 days ago. Also complains of no other associated symptoms. Historical: - Allergies: 11:21 No Known Allergies; iw - PMHx: 11:21 Back pain; Hyperlipidemia; Hypothyroidism; Hypertension; iw - Immunization history:: Client reports receiving the 2nd dose of the Covid vaccine. - Social history:: Smoking status: Patient denies any tobacco usage or history of. Screenin:12 Abuse screen: Denies threats or abuse. Denies injuries from another. Nutritional mb8 screening: No deficits noted. Tuberculosis screening: No symptoms or risk factors identified. Fall Risk None identified. Assessment: 12:10 Pain: Complains of pain in right ear Pain currently is 10 out of 10 on a pain scale. mb8 Neuro: No deficits noted. Level of Consciousness is awake, alert, obeys commands, Oriented to person, place, time, situation, Groundsman are equal bilaterally Moves all extremities. Full function Reports headache in right occipital area, since 05/02-05/03. Vital Signs: 11:19 BP 163 / 69; Pulse 64; Resp 16; Temp 97.8; Pulse Ox 97% on R/A; Weight 81.65 kg; Height iw 5 ft. 4 in. (162.56 cm); Pain 10; 11:19 Body Mass Index 30.90 (81.65 kg, 162.56 cm) iw ED Course: 11:10 Patient arrived in ED. rg4 11:10 Bro Mcmahon MD is Private Physician. rg4 11:21 Triage completed. iw 11:22 Arm band placed on. iw 11:23 Scott Arzola PA is PHCP. cp 11:23 Chandan Underwood MD is Attending Physician. cp 11:25 Francisco Carrillo RN is Primary Nurse. mb8 12:[address] via wheelchair. mb8 12:12 Patient has correct armband on for positive identification. mb8 12:12 No provider procedures requiring assistance completed. mb8 12:15 CT Head Brain wo Cont In Process Unspecified. EDMS 13:00 Patient did not have IV access during this emergency room visit. mb8 Administered Medications: 12:30 Drug: Tylenol 1000 mg Route: PO; mb8 13:00 Follow up: Response: No adverse reaction; No change in condition mb8 12:48 Drug: Ketorolac 30 mg Route: IM; Site: right deltoid; mb8 13:00 Follow up: Response: No adverse reaction mb8 12:59 Drug: Neurontin (gabapentin) 300 mg Route: PO; mb8 13:00 Follow up: Response: No adverse reaction mb8 Medication: 12:12 VIS not applicable for this client. mb8 Outcome: 12:48 Discharge ordered by . cp 13:00 Discharged to home with family. mb8 13:00 Condition: stable 13:00 Discharge instructions given to patient, Instructed on discharge instructions, follow up and referral plans. no drinking with medication, no driving heavy equipment, medication usage, Demonstrated understanding of instructions, follow-up care, medications, Prescriptions given X 1. 13:01 Patient left the ED. mb8 Signatures: Dispatcher [employer] Danita Perez, RN Scott Real PA PA cp Garcia, Rubi rg4 Francisco Carrillo RN RN mb8
[2022-05-05] MEDS ORDERED: KETOROLAC 30 MG/ML INJ ONE (12:53)
[2022-05-05] MEDS ORDERED: GABAPENTIN 300 MG CAP ONE (12:58)
[2022-05-05 13:06] VITALS: BP 163/69; TEMP 97.8; O2SAT 97
== END 2022-05-05 13:01 | disposition home or self-care (01) ==
LOC: ER 11:07
DX: R51.9 Headache, unspecified (principal); I10 Essential (primary) hypertension
CPT/HCPCS: 70450; 81003; 81015; 96372; 99284

== ENCOUNTER 2022-05-09 20:34 | Inpatient (IN) | payer OTHER, MEDICARE ==
--- OUTSIDE RECORDS SUMMARY | 2022-05-09 21:43 | XMS REPORT | Continuity of Care Document ---
:1940 Author Organization [facility] t Address [address] [place] [address] Care Team Providers Name Role Phone Lauren Mcmahon Primary Care Physician Francisco Edmonds Attending Clinician Unavailable FOG_Halreedek_Mar_NP Attending Clinician Unavailable Francisco Edmonds Attending Clinician [phone] Sandip Huertas MD Attending Clinician Kimberly Mcbride Attending Clinician [phone] Darwin Dudley Attending Clinician Unavailable Doctor, Darren Harper Attending Clinician Unavailable Francisco Edmonds Admitting Clinician Unavailable FOG_Halamicek_Mar_NP Admitting Clinician Unavailable Physician, No Primary or Family Admitting Clinician Unavaila LAUREN Hoover Admitting Clinician Unavailable KNOW, DOES_NOT Admitting Clinician Unavailable Payers Payer Name Policy Type Policy Number Effective Date Expiration Date S cris MEDICARE B-[place]: [id number] 2007 [employer] 00:00:00 [facility] [id number] 2021 OPTIONS (MEDICARE 00:00:00 SUPPLEMENT) Problems Condition Condition Condition Status Onset Resolution Last Treating Co mments Source Name Details Category Date Date Treatment Clinician Date No known No known Disease Unive rs active active ity of problems problems [facility] Allergies, Adverse Reactions, Alerts Allergy Allergy Status [...] History SDOH University o f Alcohol Frequency [place] [facility] History SDMO University o f Alcohol Std [place] [facility] Drinks [facility] History SDMO University o f Alcohol Binge [place] [facility] Alcohol intake 2020-09-28 2020-09-28 Current drinker Unive rsity of 00:00:00 00:00:00 of alcohol [facility] (finding) Branch Tobacco use and 2018-08-13 2018-08-13 Never used Universit y of exposure 00:00:00 00:00:[address] [facility] Alcohol Comment 2018-08-13 2018-08-13 socially Universit y of 00:00:00 00:00:[address] [facility] Sex Assigned At [birth year] Universit y of 00:00:00 00:00:[address] [facility] Smoking Status Start Date Stop Date Source Former smoker 2018-08-13 00:00:00 2018-08-13 00:00:[address] [facility] Medications Ordered Filled Start Stop Current Ordering Indication Dosage Frequency Signature Comments Components Source Medication Medication Date Date Medication? Clinician (SIG) Name Name pyridostigm Yes [id number] 60mg Take 1 Univers ine 60 mg 6-17 103 tablet by ity o f tablet 00:00: mouth 3 [place] (three) Medical times Branch daily. pyridostigm 2021- No [id number] 60mg Take 1 Univers ine 60 mg 3-28 06-17 103 tablet by ity of tablet 00:00: 00:00 mouth 2 [place] 00 :00 (two) Medical times Branch daily. predniSONE Yes 10mg Take 1 Unive rs 10 mg 3-11 tablet by ity of tablet 00:00: mouth 2 [place] (two) Medical times Branch daily. DULoxetine Yes [...] TWICE Medical DAILY. Branch gabapentin 2018-09 Yes [id number] 100mg Take 1 Univers 100 mg 2-17 capsule by ity of capsule 00:00: mouth 3 [place] 00 (three) Medical times Branch daily. cetirizine 2017-09 Yes 10mg Take 10 mg U nivers (ZYRTEC) 10 2-04 by mouth ity of mg tablet 11:31: at [place] 23 bedtime. Medical Branch HYDROcodone 2017-09 Yes [...] 0.5 mg 1-16 ity of tablet 00:00: [address] lovastatin Yes Univers 20 mg 9-18 ity of tablet 00:00: [address] enalapril Yes Univers 10 mg 9-18 ity of tablet 00:00: [address] Branch levothyroxi Yes Univer s ne 175 mcg 9-18 ity of tablet 00:00: [address] meloxicam Yes Univers 15 mg 9-18 ity of tablet 00:00: [address] montelukast Yes Univer s 10 mg 9-18 ity of tablet 00:00: [address] omeprazole Yes Univers 20 mg 9-18 ity of capsule 00:00: [address] Immunizations Ordered Filled Immunization Date Status Comments Sour e Immunization Name Name SARS-COV-2 COVID-19 2020-12-06 Completed Unive rsity of PFIZER VACCINE 00:00:00 [facility] SARS-COV-2 COVID-19 2020-11-15 Completed Unive rsity of PFIZER VACCINE 00:00:00 [facility] Procedures This patient has no known procedures. Encounters Start End Encounter Admission Attending Care Care Encounter Source Date/Time Date/Time Type Type Clinicians Facility Department ID 2022-04-18 2022-04-18 Outpatient HUBER Andino PAIN [id number] [facility] 10:07:00 10:07:00 Francisco [facility] [place] [facility] 2022-04-18 2022-04-18 Outpatient FOG_Halamic AOSM AOSM [id number] Rh[facility] 00:00:00 00:00:00 ek_Mar_NP [id number] [facility] 2022-04-18 2022-04-18 Outpatient FLORENCE EdmondsSM [id number] 00:00:00 00:00:00 Francisco Chaudhary [id number] 2022-04-04 2022-04-04 Outpatient HUBER Andino PAIN [id number] [facility] 13:00:00 13:00:00 Francisco Casas [place] [facility] 2022-04-04 2022-04-04 Outpatient FOG_Halamic AOSM AOSM [id number] Rhoda 00:00:00 00:00:00 ek_Mar_NP [id number] [facility] 2022-04-04 2022-04-04 Outpatient FLORENCE EdmondsSM [id number] 00:00:00 00:00:00 Francisco Chaudhary [id number] 2022-02-21 2022-02-21 Telephone [facility] [id number] Univers 00:00:00 00:00:00 [facility] [id number] ity of SABA 4.2.7.2.686 Esa as EUNICE?BLEA [id number] Ma dical [address] MEDICAL OFFICE BUILDING 2022-02-13 2022-02-13 Outpatient FOG_Halamic AOSM AOSM [id number] Rhoda 01:11:00 01:11:00 ek_Mar_NP [id number] Orth [facility] Medicin [facility] 2022-02-13 2022-02-13 Outpatient Halamicmunir, AOSM AO [id number] 00:00:00 00:00:00 Kimberly Hernández [id number] 2022-02-02 2022-02-02 Outpatient FOG_Halamic AOSM AOSM [id number] [place] 03:00:00 03:00:00 ek_Mar_NP [id number] [facility] 2022-01-17 2022-01-17 Outpatient HERLINDA Edmonds [facility] PAIN [id number] [facility] 13:01:00 13:01:00 Francisco 59 [place] [facility] 2021-11-14 2021-11-14 Inpatient HERLINDA Edmonds [facility] PAIN [id number] [facility] 10:17:00 10:17:00 Francisco 22 [place] [facility] 2021-05-05 2021-05-05 Outpatient HERLINDA Edmonds [facility] PAIN [id number] [facility] 08:19:00 08:19:00 Francisco 17 [place] [facility] 2021-02-24 2021-02-24 Outpatient HERLINDA Edmonds [facility] PAIN [id number] [facility] 08:10:00 08:10:00 Francisco 05 [place] [facility] 2020-11-23 2020-11-23 Refill Kiya [facility] [id number] 00:00:00 00:00:00 Sandip Esteves [id number] [place] 4.2.7.2.686 [facility] [id number] [address] 2020-10-29 2020-10-29 Inpatient HUBER Andino [facility] [id number] [facility] 13:31:52 13:31:52 Francisco Morris [place] [facility] 2020-10-11 2020-10-14 Inpatient THALIA AndinoTO PAIN [id number] [facility] 09:00:00 00:24:46 Francisco Morris [place] [facility] 2020-09-28 2020-09-28 [facility] Kiya [facility] 1.2.840.114 [id number] 14:36:13 16:10:37 Visit Sandip Esteves [id number] [place] 4.2.7.2.686 [facility] [id number] [facility] 092 [facility] 2020-07-20 2020-07-20 Outpatient Edmonds, HCAT[facility] PAIN [id number] [facility] 09:30:00 09:30:00 Francisco 21 [place] [facility] 2020-05-05 2020-05-05 Outpatient Doctor, [facility] PAIN [id number] [facility] 08:30:00 08:30:00 Darren 00 [place] [facility] 2020-03-30 2020-04-08 Inpatient EL Doctor, HC[facility] PAIN [id number] [facility] 13:00:00 12:04:22 Darren 37 [place] [facility] 2020-03-08 2020-03-08 Outpatient Doctor, HCATO RADI [id number] [facility] 10:45:00 10:45:00 Darren 04 [place] [facility] 2020-01-13 2020-01-13 Outpatient Doctor, HCAT[facility] PAIN [id number] [facility] 11:45:00 11:45:00 Darren 15 [place] [facility] 2019-11-10 2019-11-13 Inpatient EL Doctor, HCATO PAIN [id number] [facility] 11:15:00 21:46:41 Darren 88 [place] [facility] 2019-10-23 2019-10-23 Outpatient Doctor, HCAT[facility] PAIN [id number] [facility] 10:00:00 10:00:00 Darren 24 [place] [facility] Results Test Description Test Time Test Comments Results Result [facility] e Comments - XR FLUORO FOR 2022-04-18 SPINE INJ 19:52:00 [facility] : 1940 Sex: F Patient Name: LETICIA VELA Unit No: [id number] EXAMS: CPT CODE: [id number] XR FLUORO FOR SPINE INJ 42276 DIAGNOSTIC LUMBAR FACET DORSAL BRANCH BLOCK REFERRAL [...] Reported and signed by: Francisco Edmonds M.D. [place] [facility] NAME: LETICIA VELA [address] [facility] PHYS: Francisco Mcgrath MD [place], [place] [address] : 1940 AGE: 81 SEX: F LOC: RAVINDER PHONE #: [phone] EXAM DATE: 04/18/2022 STATUS: REG [facility] FAX #: [phone] RAD #: [id number] D/C DT PAGE 1 Signed Report (CONTINUED) Patient Name: LETICIA VEAL Unit No: [id number] EXAMS: CPT CODE: [id number] XR FLUORO FOR SPINE INJ 29369 (Continued) CC: Technologist: Magi Mike(Dennis) Transcribed D/ (1951) [facility] NAME: LETICIA VELA [address] [facility] PHYS: Francisco Mcgrath MD [place] [address] : 1940 AGE: 81 SEX: F LOC: RAVINDER PHONE #: [phone] EXAM DATE: 04/18/2022 STATUS: REG [facility] FAX #: [phone] RAD #: [id number] D/C DT PAGE 2 Signed Report Patient Name: LETICIA VELA Unit No: [id number] EXAMS: CPT CODE: [id number] XR FLUORO FOR SPINE INJ 86414 (Continued) Orig Print D/T: S: 04/18/2022 (1954) [place] [facility] NAME: LETICIA VELA [address] [facility] PHYS: Francisco Mcgrath MD [place] [address] : 1940 AGE: 81 SEX: F LOC: RAVINDER PHONE #: [phone] EXAM DATE: 04/18/2022 STATUS: REG [facility] FAX #: [phone] RAD #: [id number] D/C DT PAGE 3 Signed Report - XR FLUORO FOR 2022-04-04 SPINE INJ 20:30:00 [facility] 1940 Sex: F Patient Name: LETICIA VELA Unit No: [id number] EXAMS: CPT CODE: [id number] XR FLUORO FOR SPINE INJ 39756 LUMBAR DISCOGRAM AND INTRADISCAL INJECTION REFERRING PHYSICIAN: [...] 0.25 mL with lidocaine 4% 0.25 ml, Tovqzmztd869 mg/mL 0.2 ml and triamcinolone 30 mg was then injected at each disc, provocation was recorded and the needles were removed. There were no signs of intravascular or intrathecal uptake. The patient's vital signs remained stable. The patient was taken to the PACU in good condition. Electronically Signed: Francisco Edmonds M.D. Image: Image 1 [place] [facility] NAME: LETICIA VELA [address] [facility] PHYS: Francisco Mcgrath MD [place] [address] : 1940 AGE: 81 SEX: F LOC: RAVINDER PHONE #: [phone] EXAM DATE: 04/04/2022 STATUS: REG [facility] FAX #: [phone] RAD #: [id number] D/C DT PAGE 1 Signed Report (CONTINUED) Patient Name: LETICIA VELA Unit No: [id number] EXAMS: CPT CODE: [id number] XR FLUORO FOR SPINE INJ 87883 (Continued) Image: Image 2 Image: Image 3 at 2029 Reported and signed by: Francisco Edmonds M.D. CC: Technologist: Magi Mike(R) Transcribed D/ (2029) [facility] NAME: LETICIA VELA [address] [facility] PHYS: Francisco Mcgrath MD [place] [address] : 1940 AGE: 81 SEX: F LOC: RAVINDER PHONE #: [phone] EXAM DATE: 04/04/2022 STATUS: REG [facility] FAX #: [phone] RAD #: [id number] D/C DT PAGE 2 Signed Report Patient Name: LETICIA VELA Unit No: [id number] EXAMS: CPT CODE: [id number] XR FLUORO FOR SPINE INJ 04739 (Continued) Orig Print D/T: S: 04/04/2022 (2033) [facility] NAME: LETICIA VELA [address] [facility] PHYS: Francisco Mcgrath MD [place] [id number] : 1940 AGE: 81 SEX: F LOC: YSarahMEHRDAD PHONE #: [phone] EXAM DATE: 04/04/2022 STATUS: REG [facility] FAX #: [phone] [facility] #: [id number] D/C DT PAGE 3 Signed Report - XR FLUORO FOR 2022-01-17 SPINE INJ 19:46:00 [facility] 1940 Sex: F Patient Name: LETICAI VELA Unit No: [id number] EXAMS: CPT CODE: [id number] XR FLUORO FOR SPINE INJ 86424 LUMBAR FACET INJECTION DIAGNOSTIC REFERRAL PHYSICIAN: None [...] Reported and signed by: Francisco Edmonds M.D. [facility] NAME: LETICIA VELA [address] [facility] PHYS: Francisco Mcgrath MD [place] [address] : 1940 AGE: 81 SEX: F LOC: RAVINDER PHONE #: [phone] EXAM DATE: 01/17/2022 STATUS: REG [facility] FAX #: [phone] RAD #: [id number] D/C DT PAGE 1 Signed Report (CONTINUED) Patient Name: LETICIA VELA Unit No: [id number] EXAMS: CPT CODE: [id number] XR FLUORO FOR SPINE INJ 32616 (Continued) CC: Technologist: Magi Mike(R) Transcribed D/ (1945) [facility] NAME: LETICIA VELA [address] [facility] PHYS: Francisco Mcgrath MD [place] [address] : 1940 AGE: 81 SEX: F LOC: RAVINDER PHONE #: [phone] EXAM DATE: 01/17/2022 STATUS: REG [facility] FAX #: [phone] RAD #: [id number] D/C DT PAGE 2 Signed Report Patient Name: LETICIA VELA Unit No: [id number] EXAMS: CPT CODE: [id number] XR FLUORO FOR SPINE INJ 98760 (Continued) Orig Print D/T: S: 01/17/2022 (1949) [place] [facility] NAME: LETICIA VELA [address] [facility] PHYS: Francisco Mcgrath MD [place], [place] [address] : 1940 AGE: 81 SEX: F LOC: RAVINDER PHONE #: [phone] EXAM DATE: 01/17/2022 STATUS: REG [facility] FAX #: [phone] RAD #: [id number] D/C DT PAGE 3 Signed Report - XR FLUORO FOR 2021-11-14 SPINE INJ 19:44:[address] [facility] : 1940 Sex: F Patient Name: LETICIA VELA Unit No: [id number] EXAMS: CPT CODE: [id number] XR FLUORO FOR SPINE INJ 66891 LUMBAR DISCOGRAM AND INTRADISCAL INJECTION REFERRING PHYSICIAN: [...] 0.25 mL with lidocaine 4% 0.25 ml, Hkvwrfjof747 mg/mL 0.2 ml and triamcinolone 30 mg was then injected, provocation was recorded and the needles were removed. There were no signs of intravascular or intrathecal uptake. The patient's vital signs remained stable. The patient was taken to the PACU in good condition. Image: Image 1 Image: Image 2 [facility] NAME: LETICIA VELA [address] [facility] PHYS: Francisco Mcgrath MD [place], [place] [address] : 1940 AGE: 81 SEX: F LOC: RAVINDER PHONE #: [phone] EXAM DATE: 11/14/2021 STATUS: REG [facility] FAX #: [phone] RAD #: [id number] D/C DT PAGE 1 Signed Report (CONTINUED) Patient Name: LETICIA VELA Unit No: [id number] EXAMS: CPT CODE: [id number] XR FLUORO FOR SPINE INJ 35290 (Continued) Image: Image 3 at 1941 Reported and signed by: Francisco Edmonds M.D. CC: Technologist: Magi Mike(R) Transcribed D/ (1941) [facility] NAME: LETICIA VELA [address] [facility] PHYS: Francisco Mcgrath MD [place], [place] [address] : 1940 AGE: 81 SEX: F LOC: RAVINDER PHONE #: [phone] EXAM DATE: 11/14/2021 STATUS: REG [facility] FAX #: [phone] RAD #: [id number] D/C DT PAGE 2 Signed Report Patient Name: LETICIA VELA Unit No: [id number] EXAMS: CPT CODE: [id number] XR FLUORO FOR SPINE INJ 17333 (Continued) Orig Print D/T: S: 11/14/2021 (1946) [place] [facility] NAME: LETICIA VELA [address] [facility] PHYS: Francisco Mcgrath MD [place], [place] [address] : 1940 AGE: 81 SEX: F LOC: RAVINDER PHONE #: [phone] EXAM DATE: 11/14/2021 STATUS: REG [facility] FAX #: [phone] RAD #: [id number] D/C DT PAGE 3 Signed Report - XR FLUORO FOR 2021-05-05 SPINE INJ 18:46:[address] : 1940 Sex: F Patient Name: LETICIA VELA Unit No: [id number] EXAMS: CPT CODE: [id number] XR FLUORO FOR SPINE INJ 66429 LUMBAR DISCOGRAM AND INTRADISCAL INJECTION REFERRING PHYSICIAN: [...] 0.25 mL with lidocaine 4% 0.25 ml, Equwueefv034 mg/mL 0.2 ml and triamcinolone 26 mg was then injected, provocation was recorded and the needles were removed. There were no signs of intravascular or intrathecal uptake. The patient's vital signs remained stable. The patient was taken to the PACU in good condition. Image: Image 1 [place] [facility] NAME: LETICIA VELA [address] [facility] PHYS: Francisco Mcgrath MD [place], [place] [address] : 1940 AGE: 80 SEX: F LOC: Y.MEHRDAD PHONE #: [phone] EXAM DATE: 05/05/2021 STATUS: REG [facility] FAX #: [phone] RAD #: [id number] D/C DT PAGE 1 Signed Report (CONTINUED) Patient Name: LETICIA VELA Unit No: [id number] EXAMS: CPT CODE: [id number] XR FLUORO FOR SPINE INJ 15261 (Continued) Image: Image 2 Image: Image 3 at 1846 Reported and signed by: Francisco Edmonds M.D. CC: Technologist: Magi Mike(R) Transcribed D/ (1845) [facility] NAME: LETICIA VELA [address] [facility] PHYS: Francisco Mcgrath MD [place], [place] [address] : 1940 AGE: 80 SEX: F LOC: RAVINDER PHONE #: [phone] EXAM DATE: 05/05/2021 STATUS: REG [facility] FAX #: [phone] RAD #: [id number] D/C DT PAGE 2 Signed Report Patient Name: LETICIA VELA Unit No: [id number] EXAMS: CPT CODE: [id number] XR FLUORO FOR SPINE INJ 32801 (Continued) Orig Print D/T: S: 05/05/2021 (1848) [place] [facility] NAME: LETICIA VELA [address] [facility] PHYS: Francisco Mcgrath MD [place], [place] [address] : 1940 AGE: 80 SEX: F LOC: RAVINDER PHONE #: [phone] EXAM DATE: 05/05/2021 STATUS: REG [facility] FAX #: [phone] RAD #: [id number] D/C DT PAGE 3 Signed Report - XR FLUORO FOR 2021-02-24 SPINE INJ 20:26:00 [facility] : 1940 Sex: F Patient Name: LETICIA VELA Unit No: [id number] EXAMS: CPT CODE: [id number] XR FLUORO FOR SPINE INJ 19490 DIAGNOSTIC CERVICAL TRANSFORAMINAL EPIRADICULAR INJECTION REFERRAL PHYSICIAN: [...] 1 Image: Image 2 Image: Image 3 [facility] NAME: LETICIA VELA [address] [facility] PHYS: Francisco Mcgrath MD [place], [place] [address] : 1940 AGE: 80 SEX: F LOC: RAVINDER PHONE #: [phone] EXAM DATE: 02/24/2021 STATUS: REG [facility] FAX #: [phone] RAD #: [id number] D/C DT PAGE 1 Signed Report (CONTINUED) Patient Name: LETICIA VELA Unit No: [id number] EXAMS: CPT CODE: [id number] XR FLUORO FOR SPINE INJ 62363 (Continued) at 2025 Reported and signed by: Francisco Edmonds M.D. CC: Technologist: Magi Mike(R) Transcribed D/ (2025) [facility] NAME: LETICIA VELA [address] [facility] PHYS: Francisco Mcgrath MD [place] [address] : 1940 AGE: 80 SEX: F LOC: RAVINDER PHONE #: [phone] EXAM DATE: 02/24/2021 STATUS: REG [facility] FAX #: [phone] RAD #: [id number] D/C DT PAGE 2 Signed Report Patient Name: LETICIA VELA Unit No: [id number] EXAMS: CPT CODE: [id number] XR FLUORO FOR SPINE INJ 64115 (Continued) Orig Print D/T: S: 02/24/2021 (2029) [place] [facility] NAME: LETICIA VELA [address] [facility] PHYS: Francisco Mcgrath MD [place] [address] : 1940 AGE: 80 SEX: F LOC: RAVINDER PHONE #: [phone] EXAM DATE: 02/24/2021 STATUS: REG [facility] FAX #: [phone] RAD #: [id number] D/C DT PAGE 3 Signed Report - XR C-SPINE 6+V 2021-01-21 12:29:00 [facility] : 1940 Sex: F Patient Name: LETICIA VELA Unit No: [id number] EXAMS: CPT CODE: [id number] XR C-SPINE 6+V 43283 Cervical spine 5 views plus flexion and [...] LENNY HAWKINS, RT(R) Transcribed D/ (1229) tASHLEYR.JCL [facility] NAME: LETICIA VELA [address] [facility] PHYS: Francisco Mcgrath MD : 1940 AGE: 80 SEX: F [place], [place] [address] LOC: Y.MRI PHONE #: [phone] EXAM DATE: 01/20/2021 STATUS: DEP CLI FAX #: [phone] RAD #: [id number] D/C DT PAGE 1 Signed Report Patient Name: LETICIA VELA Unit No: [id number] EXAMS: CPT CODE: [id number] XR C-SPINE 6+V 18007 (Continued) Orig Print D/T: S: 01/21/2021 (1232) [place] [facility] NAME: LETICIA VELA [address] [facility] PHYS: Francisco Mcgrath MD : 1940 AGE: 80 SEX: F [place], [place] [address] LOC: Y.MRI PHONE #: [phone] EXAM DATE: 01/20/2021 STATUS: DEP CLI FAX #: [phone] RAD #: [id number] D/C DT PAGE 2 Signed Report - MRI C-SPINE W/O 2021-01-20 CONT 15:16:[address] : 1940 Sex: F Patient Name: LETICIA VELA Unit No: [id number] EXAMS: CPT CODE: [id number] MRI C-SPINE W/O CONT 65806 DIAGNOSIS: 1. At C2-3 there is no [...] Technologist: MELANIE GRANADOS Transcribed D/ (1515) EugeneJCL [facility] NAME: LETICIA VELA [address] [facility] PHYS: Francisco Mcgrath MD : 1940 AGE: 80 SEX: F [place] [address] LOC: Y.MRI PHONE #: [phone] EXAM DATE: 01/20/2021 STATUS: REG CLI FAX #: [phone] RAD #: [id number] D/C DT PAGE 1 Signed Report Patient Name: LETICIA VELA Unit No: [id number] EXAMS: CPT CODE: [id number] MRI C-SPINE W/O CONT 64675 (Continued) Orig Print D/T: S: 01/20/2021 (1519) [facility] NAME: LETICIA VELA [address] [facility] PHYS: Francisco Mcgrath MD : 1940 AGE: 80 SEX: F [place] [address] LOC: Y.MRI PHONE #: [phone] EXAM DATE: 01/20/2021 STATUS: REG CLI FAX #: [phone] RAD #: [id number] D/C DT PAGE 2 Signed Report - XR FLUORO FOR 2020-11-01 SPINE INJ 20:25:00 [facility] : 1940 Sex: F Patient Name: LETICIA VELA Unit No: [id number] EXAMS: CPT CODE: [id number] XR FLUORO FOR SPINE INJ 38913 LUMBAR FACET INJECTION DIAGNOSTIC REFERRAL PHYSICIAN: None [...] condition. Image: Image 1 Image: Image 2 [facility] NAME: LETICIA VELA [address] [facility] PHYS: Francisco Mcgrath MD [place], [place] [address] : 1940 AGE: 80 SEX: F LOC: RAVINDER PHONE #: [phone] EXAM DATE: 11/01/2020 STATUS: REG [facility] FAX #: [phone] RAD #: [id number] D/C DT PAGE 1 Signed Report (CONTINUED) Patient Name: LETICIA VELA Unit No: [id number] EXAMS: CPT CODE: [id number] XR FLUORO FOR SPINE INJ 67140 (Continued) at 2024 Reported and signed by: Francisco Edmonds M.D. CC: Technologist: Magi Mike(R) Transcribed D/ (2024) t[facility]ONORFormerly [facility] NAME: LETICIA VELA [address] [facility] PHYS: Francisco Mcgrath MD [place], [place] [address] : 1940 AGE: 80 SEX: F LOC: RAVINDER PHONE #: [phone] EXAM DATE: 11/01/2020 STATUS: REG [facility] FAX #: [phone] RAD #: [id number] D/C DT PAGE 2 Signed Report Patient Name: LETICIA VELA Unit No: [id number] EXAMS: CPT CODE: [id number] XR FLUORO FOR SPINE INJ 69956 (Continued) Orig Print D/T: S: 11/01/2020 (2027) [facility] NAME: LETICIA VELA [address] [facility] PHYS: Francisco Mcgrath MD [place] [address] : 1940 AGE: 80 SEX: F LOC: [facility]IND[facility] PHONE #: [phone] EXAM DATE: 11/01/2020 STATUS: REG [facility] [place] FAX #: [phone] RAD #: [id number] D/C DT PAGE 3 Signed Report - XR FLUORO FOR 2020-10-11 SPINE INJ [facility] 1940 Sex: F Patient Name: LETICIA VELA Unit No: [id number] EXAMS: CPT CODE: [id number] XR FLUORO FOR SPINE INJ [id number] LUMBAR DISCOGRAM AND INTRADISCAL INJECTION REFERRING PHYSICIAN: [...] 0.25 mL with lidocaine 4% 0.5 ml, Lpszcmpol985 mg/mL 0.2 ml and triamcinolone 26 mg was then injected, provocation was recorded and the needles were removed. There were no signs of intravascular or intrathecal uptake. The patient's vital signs remained stable. The patient was taken to the PACU in good condition. Of note images fill to transfer on the L3-4 and partially on the L4-5 discs. [facility] NAME: LETICIA VELA [address] [facility] PHYS: Francisco Mcgrath MD [place], [place] [address] : 1940 AGE: 80 SEX: F LOC: RAVINDER PHONE #: [phone] EXAM DATE: 10/11/2020 STATUS: REG [facility] FAX #: [phone] RAD #: [id number] D/C DT PAGE 1 Signed Report (CONTINUED) Patient Name: LETICIA VELA Unit No: [id number] EXAMS: CPT CODE: [id number] XR FLUORO FOR SPINE INJ 31480 (Continued) at 2021 Reported and signed by: Francisco Edmonds M.D. CC: Technologist: Magi Mike(R) Transcribed D/ (2021) Rosio [facility] NAME: LETICIA VELA [address] [facility] PHYS: Francisco Mcgrath MD [place], [place] [address] : 1940 AGE: 80 SEX: F LOC: RAVINDER PHONE #: [phone] EXAM DATE: 10/11/2020 STATUS: REG [facility] FAX #: [phone] RAD #: [id number] D/C DT PAGE 2 Signed Report Patient Name: LETICIA VELA Unit No: [id number] EXAMS: CPT CODE: [id number] XR FLUORO FOR SPINE INJ 24244 (Continued) Orig Print D/T: S: 10/11/2020 (2025) [facility] NAME: LETICIA VELA [address] [facility] PHYS: Francisco Mcgrath MD [place], [place] [address] : 1940 AGE: 80 SEX: F LOC: RAVINDER PHONE #: [phone] EXAM DATE: 10/11/2020 STATUS: REG [facility] FAX #: [phone] RAD #: [id number] D/C DT PAGE [address] SPECT (EG, 2020-08-30 HEAD, NECK, 14:57:58 CHEST, PELVIS) [facility]: [[id number]] LETICIA VELA : 1940 Sex: F Addendum created at 01/07/2021 10:28:49 AM:Addendum:Planar imaging only of the cervical spine is demonstrated. Approximate mild to moderate midline uptake is noted at C5-6 and C6-7. No significant facet localization is observed. Again note made of moderate bilateral acromioclavicular and glenohumeral joint uptake.Addendum by: Darwin Dudley, [facility] INDICATION: M51.36 Other intervertebral disc degeneration, lumbar fwlavdF84.16 Intervertebral disc disorders with radiculopathy, lumbar regionMODALITY: [...] uptake is otherwise most conspicuous.IMPRESSION: See comments above.[facility] 147: 3570F - XR FLUORO FOR 2020-07-20 SPINE INJ 18:21:00 [facility] : 1940 Sex: F Patient Name: LETICIA VELA Unit No: [id number] EXAMS: CPT CODE: [id number] XR FLUORO FOR SPINE INJ 96838 LUMBAR EPIRADICULAR INJECTION REFERRAL PHYSICIAN: None PREOPERATIVE [...] CC: Technologist: Magi Mike(Dennis) Transcribed D/ (1820) [facility] NAME: LETICIA VELA [address] [facility] PHYS: Francisco Mcgrath MD [place] [address] : 1940 AGE: 79 SEX: F LOC: RAVINDER PHONE #: [phone] EXAM DATE: 07/20/2020 STATUS: REG [facility] FAX #: [phone] RAD #: [id number] D/C DT PAGE 1 Signed Report Patient Name: LETICIA VELA Unit No: [id number] EXAMS: CPT CODE: [id number] XR FLUORO FOR SPINE INJ 74629 (Continued) Orig Print D/T: S: 07/20/2020 (1824) [facility] NAME: LETICIA VELA [address] [facility] PHYS: Francisco Mcgrath MD [place], [place] [address] : 1940 AGE: 79 SEX: F LOC: RAVINDER PHONE #: [phone] EXAM DATE: 07/20/2020 STATUS: REG [facility] FAX #: [phone] RAD #: [id number] D/C DT PAGE 2 Signed Report - XR FLUORO FOR 2020-05-05 Patient Name: SPINE INJ 12:28:00 LETICIA VELA Unit No: [id number] EXAMS: CPT CODE: [id number] XR FLUORO FOR SPINE INJ 50709 CERVICAL TRANSFORAMINAL INJECTION REFERRING PHYSICIAN: PREOPERATIVE DIAGNOSIS: [...] taken to the PACU in good condition. [facility] NAME: LETICIA VELA [address] [place] [address] PHYS: Darren Shore MD [place], [place] [address] : 1940 AGE: 79 SEX: F LOC: RAVINDER PHONE #: [phone] EXAM DATE: 05/05/2020 STATUS: REG [facility] FAX #: [phone] RAD #: [id number] D/C DT PAGE 1 Signed Report (CONTINUED) Patient Name: LETICIA VELA Unit No: [id number] EXAMS: CPT CODE: [id number] XR FLUORO FOR SPINE INJ 74659 (Continued) at 1228 Reported and signed by: Darren Andres M.D. CC: Darren Andres MD Technologist: MICHAEL WILLIS RT(R) Transcribed D/ (1228) tKAVEHD [facility] NAME: LETICIA VELA [address] [place] [address] PHYS: Darren Shore MD [place], [place] [address] : 1940 AGE: 79 SEX: F LOC: RAVINDER PHONE #: [phone] EXAM DATE: 05/05/2020 STATUS: REG [facility] FAX #: [phone] RAD #: [id number] D/C DT PAGE 2 Signed Report Patient Name: LETICIA VELA Unit No: [id number] EXAMS: CPT CODE: [id number] XR FLUORO FOR SPINE INJ 49654 (Continued) Orig Print D/T: S: 05/05/2020 (1231) [facility] NAME: LETICIA VELA [address] [facility] PHYS: DOCLUIS EDUARDO - DoctorDarren MD [place], [place] [address] : 1940 AGE: 79 SEX: F LOC: RAVINDER PHONE #: [phone] EXAM DATE: 05/05/2020 STATUS: REG [facility] FAX #: [phone] RAD #: [id number] D/C DT PAGE 3 Signed Report - XR FLUORO FOR 2020-03-30 Patient Name: SPINE INJ 11:43:00 LETICIA VELA Unit No: [id number] EXAMS: CPT CODE: [id number] XR FLUORO FOR SPINE INJ 23372 LUMBAR FACET INJECTION REFERRING PHYSICIAN: PREOPERATIVE DIAGNOSIS: [...] Reported and signed by: Darren Andres M.D. [facility] NAME: LETICIA VELA [address] [facility] PHYS: Darren Shore MD [place] [address] : 1940 AGE: 79 SEX: F LOC: RAVINDER PHONE #: [phone] EXAM DATE: 03/30/2020 STATUS: REG SD FAX #: [phone] RAD #: [id number] D/C DT PAGE 1 Signed Report (CONTINUED) Patient Name: LETICIA VELA Unit No: [id number] EXAMS: CPT CODE: [id number] XR FLUORO FOR SPINE INJ 46108 (Continued) CC: Technologist: Magi Mike(R) Transcribed D/ (1143) Chung [facility] NAME: LETICIA VELA [address] [facility] PHYS: Darren Shore MD [place] [address] : 1940 AGE: 79 SEX: F LOC: RAVINDER PHONE #: [phone] EXAM DATE: 03/30/2020 STATUS: REG SDC FAX #: [phone] RAD #: [id number] D/C DT PAGE 2 Signed Report Patient Name: LETICIA VELA Unit No: [id number] EXAMS: CPT CODE: [id number] XR FLUORO FOR SPINE INJ 83065 (Continued) Orig Print D/T: S: 03/30/2020 (3901) [facility] NAME: LETICIA VELA [address] [facility] PHYS: Darren Shore MD [place] [address] : 1940 AGE: 79 SEX: F LOC: YSarahMEHRDAD PHONE #: [phone] EXAM DATE: 03/30/2020 STATUS: REG SDC FAX #: [phone] RAD #: [id number] D/C DT PAGE 3 Signed Report - XR L-SPINE 2020-03-09 Patient Name: W/BEND VIEW 07:25:00 LETICIA VELA Unit No: [id number] EXAMS: CPT CODE: [id number] XR L-SPINE W/BEND VIEW 27757 LUMBAR SPINE 5 VIEWS PLUS FLEXION AND [...] Bethany Hermosillo RT.(R) Transcribed D/ (07) [facility] NAME: LETICIA VELA [address] [place] [address] PHYS: Darren Shore MD : 1940 AGE: 79 SEX: F [place] [address] LOC: YDARION PHONE #: [phone] EXAM DATE: 03/08/2020 STATUS: DEP CLI FAX #: [phone] RAD #: [id number] D/C DT PAGE 1 Signed Report Patient Name: LETICIA VELA Unit No: [id number] EXAMS: CPT CODE: [id number] XR L-SPINE W/BEND VIEW 97478 (Continued) Orig Print D/T: S: 03/09/2020 (0729) [facility] NAME: LETICIA VELA [address] PHYS: DOCUD - Doctor,Darren Harper MD : 1940 AGE: 79 SEX: F [place], [place] [address] LOC: Y.MRI PHONE #: [phone] EXAM DATE: 03/08/2020 STATUS: DEP CLI FAX #: [phone] RAD #: [id number] D/C DT PAGE 2 Signed Report - MRI L-SPINE W/O 2020-03-08 Patient Name: CONT 14:33:00 LETICIA VELA Unit No: [id number] EXAMS: CPT CODE: [id number] MRI L-SPINE W/O CONT 75378 TECHNIQUE: Multiplanar, multisequence MRI examination performed of [...] where there is severe central canal stenosis. [facility] NAME: LETICIA VELA [address] [place] [address] PHYS: Darren Shore MD : 1940 AGE: 79 SEX: F [place] [address] LOC: Y.MRI PHONE #: [phone] EXAM DATE: 03/08/2020 STATUS: REG CLI FAX #: [phone] RAD #: [id number] D/C DT PAGE 1 Signed Report (CONTINUED) Patient Name: LETICIA VELA Unit No: [id number] EXAMS: CPT CODE: [id number] MRI L-SPINE W/O CONT 10409 (Continued) at 1433 Reported and signed by: Quentin Man M.D. CC: Darren Andres MD Technologist: Xiomara Mg, RT(R) Transcribed D/ (1433) [facility]: LETICIA VELA [address] [place] [address] PHYS: Darren Shore MD : 1940 AGE: 79 SEX: F [place] [address] LOC: Y.MRI PHONE #: [phone] EXAM DATE: 03/08/2020 STATUS: REG CLI FAX #: [phone] RAD #: [id number] D/C DT PAGE 2 Signed Report Patient Name: LETICIA VELA Unit No: [id number] EXAMS: CPT CODE: [id number] MRI L-SPINE W/O CONT 29319 (Continued) Orig Print D/T: S: 03/08/2020 (1436) [facility] NAME: LETICIA VELA [address] [place] [address] PHYS: Darren Shore MD : 1940 AGE: 79 SEX: F [place] [address] LOC: Y.MRI PHONE #: [phone] EXAM DATE: 03/08/2020 STATUS: REG CLI FAX #: [phone] RAD #: [id number] D/C DT PAGE 3 Signed Report - XR FLUORO FOR 2020-01-13 Patient Name: SPINE INJ 10:52:00 LETICIA VELA Unit No: [id number] EXAMS: CPT CODE: [id number] XR FLUORO FOR SPINE INJ 25069 Right SHOULDER INJECTION REFERRING PHYSICIAN: PREOPERATIVE DIAGNOSIS: [...] MAREK CHEEK RT(R) Transcribed D/ (1052) EugeneUVD [facility] NAME: LETICIA VELA [address] [facility] PHYS: DOCUD - Darren Andres MD [place], [place] [address] : 1940 AGE: 79 SEX: F LOC: RAVINDER PHONE #: [phone] EXAM DATE: 01/13/2020 STATUS: REG [facility] FAX #: [phone] RAD #: [id number] D/C DT PAGE 1 Signed Report Patient Name: LETICIA VELA Unit No: [id number] EXAMS: CPT CODE: [id number] XR FLUORO FOR SPINE INJ 68666 (Continued) Orig Print D/T: S: 01/13/2020 (1056) [facility] NAME: LETICIA VELA [address] [facility] PHYS: JAIR - DoctorDarren MD [place], [place] [address] : 1940 AGE: 79 SEX: F LOC: RAVINDER PHONE #: [phone] EXAM DATE: 01/13/2020 STATUS: REG SDC FAX #: [phone] RAD #: [id number] D/C DT PAGE 2 Signed Report - XR FLUORO FOR 2019-11-10 Patient Name: SPINE INJ 11:27:00 LETICIA VELA Unit No: [id number] EXAMS: CPT CODE: [id number] XR FLUORO FOR SPINE INJ 14529 LUMBAR TRANSFORAMINAL INJECTION REFERRING PHYSICIAN: PREOPERATIVE DIAGNOSIS: [...] Reported and signed by: Darren Andres M.D. [facility] NAME: LETICIA VELA [address] [facility] PHYS: Darren Shore MD [place] [address] : 1940 AGE: 79 SEX: F LOC: RAVINDER PHONE #: [phone] EXAM DATE: 11/10/2019 STATUS: REG SD FAX #: [phone] RAD #: [id number] D/C DT PAGE 1 Signed Report (CONTINUED) Patient Name: LETICIA VELA Unit No: [id number] EXAMS: CPT CODE: [id number] XR FLUORO FOR SPINE INJ 36291 (Continued) CC: Technologist: Magi Mike(R) Transcribed D/ (1127) tMERON [facility] NAME: LETICIA VELA [address] [facility] PHYS: Darren Shore MD [place] [address] : 1940 AGE: 79 SEX: F LOC: RAVINDER PHONE #: [phone] EXAM DATE: 11/10/2019 STATUS: REG SD FAX #: [phone] RAD #: [id number] D/C DT PAGE 2 Signed Report Patient Name: LETICIA VELA Unit No: [id number] EXAMS: CPT CODE: [id number] XR FLUORO FOR SPINE INJ 42175 (Continued) Orig Print D/T: S: 11/10/2019 (1130) [facility] NAME: LETICIA VELA [address] PHYS: DOCUD - DoctorDarren MD [place], [place] [address] : 1940 AGE: 79 SEX: F LOC: RAVINDER PHONE #: [phone] EXAM DATE: 11/10/2019 STATUS: REG [facility] FAX #: [phone] RAD #: [id number] D/C DT PAGE 3 Signed Report - XR FLUORO FOR 2019-10-23 Patient Name: SPINE INJ 13:23:00 LETICIA VELA Unit No: [id number] EXAMS: CPT CODE: [id number] XR FLUORO FOR SPINE INJ 72660 CERVICAL TRANSFORAMINAL INJECTION REFERRING PHYSICIAN: PREOPERATIVE DIAGNOSIS: [...] taken to the PACU in good condition. [facility] NAME: LETICIA VELA [address] [facility] PHYS: Darren Shore MD [place] [address] : 1940 AGE: 79 SEX: F LOC: RAVINDER PHONE #: [phone] EXAM DATE: 10/23/2019 STATUS: REG SDC FAX #: [phone] RAD #: [id number] D/C DT PAGE 1 Signed Report (CONTINUED) Patient Name: LETICIA VELA Unit No: [id number] EXAMS: CPT CODE: [id number] XR FLUORO FOR SPINE INJ 89604 (Continued) at 1323 Reported and signed by: Darren Andres M.D. CC: Darren Andres MD Technologist: MAREK CHEEK RT(R) Transcribed D/ (1323) Chung [facility] NAME: LETICIA VELA [address] [facility] PHYS: Darren Shore MD [place] [address] : 1940 AGE: 79 SEX: F LOC: RAVINDER PHONE #: [phone] EXAM DATE: 10/23/2019 STATUS: REG SD FAX #: [phone] RAD #: [id number] D/C DT PAGE 2 Signed Report Patient Name: LETICIA VELA Unit No: [id number] EXAMS: CPT CODE: [id number] XR FLUORO FOR SPINE INJ 77161 (Continued) Orig Print D/T: S: 10/23/2019 (1326) [facility] NAME: LETICIA VELA [address] [facility] PHYS: Darren Shore MD [place] [address] : 1940 AGE: 79 SEX: F LOC: RAVINDER PHONE #: [phone] EXAM DATE: 10/23/2019 STATUS: REG SDC FAX #: [phone] RAD #: [id number] D/C DT PAGE 3 Signed Report - XR FLUORO FOR 2019-06-26 Patient Name: SPINE INJ 12:23:00 LETICIA VELA Unit No: [id number] EXAMS: CPT CODE: [id number] XR FLUORO FOR SPINE INJ 82726 LUMBAR FACET INJECTION REFERRING PHYSICIAN: PREOPERATIVE DIAGNOSIS: [...] taken to the PACU in good condition. [facility] NAME: LETICIA VELA [address] [facility] PHYS: DOCUD - Doctor,Darren Harper MD [place], [place] [address] : 1940 AGE: 78 SEX: F LOC: RAVINDER PHONE #: [phone] EXAM DATE: 06/26/2019 STATUS: REG [facility] FAX #: [phone] RAD #: [id number] D/C DT PAGE 1 Signed Report (CONTINUED) Patient Name: LETICIA VELA Unit No: [id number] EXAMS: CPT CODE: [id number] XR FLUORO FOR SPINE INJ 41213 (Continued) at 1223 Reported and signed by: Darren Andres M.D. CC: Darren Andres MD Technologist: ESTEFANY PENA RT(R) Transcribed D/ (1223) Chung [facility] NAME: LETICIA VELA [address] [place] [address] PHYS: Darren Shore MD [place] [address] : 1940 AGE: 78 SEX: F LOC: RAVINDER PHONE #: [phone] EXAM DATE: 06/26/2019 STATUS: REG [employer] FAX #: [phone] RAD #: [id number] D/C DT PAGE 2 Signed Report Patient Name: LETICIA VELA Unit No: [id number] EXAMS: CPT CODE: [id number] XR FLUORO FOR SPINE INJ 52790 (Continued) Orig Print D/T: S: 06/26/2019 (1226) [facility] NAME: LETICIA VELA [address] [place] [address] PHYS: Darren Shore MD [place] [address] : 1940 AGE: 78 SEX: F LOC: RAVINDER PHONE #: [phone] EXAM DATE: 06/26/2019 STATUS: REG [employer] FAX #: [phone] RAD #: [id number] D/C DT PAGE 3 Signed Report - XR FLUORO FOR 2019-03-14 Patient Name: SPINE INJ 13:11:00 LETICIA VELA Unit No: [id number] EXAMS: CPT CODE: [id number] XR FLUORO FOR SPINE INJ 44012 LUMBAR TRANSFORAMINAL INJECTION REFERRING PHYSICIAN: PREOPERATIVE DIAGNOSIS: [...] Mcmahon MD Technologist: Magi Mike(Dennis) Transcribed D/ (5022) Terrie.UVD [facility] NAME: LETICIA VELA [address] [facility] PHYS: DOCUD - DoctorDarren MD [place], [place] [address] : 1940 AGE: 78 SEX: F LOC: RAVINDER PHONE #: [phone] EXAM DATE: 03/14/2019 STATUS: REG [facility] FAX #: [phone] RAD #: [id number] D/C DT PAGE 1 Signed Report Patient Name: LETICIA VELA Unit No: [id number] EXAMS: CPT CODE: [id number] XR FLUORO FOR SPINE INJ 34358 (Continued) Orig Print D/T: S: 03/14/2019 (1314) [facility] NAME: LETICIA VELA [address] [facility] PHYS: DOCUD - DoctorDarren MD [place], [place] [address] : 1940 AGE: 78 SEX: F LOC: RAVINDER PHONE #: [phone] EXAM DATE: 03/14/2019 STATUS: REG [facility] FAX #: [phone] RAD #: [id number] D/C DT PAGE 2 Signed Report - XR FLUORO FOR 2018-12-04 Patient Name: SPINE INJ 15:28:00 LETICIA VELA Unit No: [id number] EXAMS: CPT CODE: [id number] XR FLUORO FOR SPINE INJ 48487 LUMBAR TRANSFORAMINAL INJECTION AND LUMBAR FACET BLOCK [...] prone position and the lumbosacral spine [facility] NAME: LETICIA VELA [address] [facility] PHYS: DOCUD - Darren Andres MD [place], [place] [address] : 1940 AGE: 78 SEX: F LOC: MelviMEHRDAD PHONE #: [phone] EXAM DATE: 12/04/2018 STATUS: REG [facility] FAX #: [phone] RAD #: [id number] D/C DT PAGE 1 Signed Report (CONTINUED) Patient Name: LETICIA VELA Unit No: [id number] EXAMS: CPT CODE: [id number] XR FLUORO FOR SPINE INJ 73759 (Continued) was prepped and draped in sterile [...] was taken to the recovery room. at 9633 Reported and signed by: Darren Andres M.D. CC: Technologist: Magi Mike(Dennis) Transcribed D/ (1756) Terrie.UVD [facility] NAME: LETICIA VELA [address] [facility] PHYS: Darren Shore MD [place], [place] [address] : 1940 AGE: 78 SEX: F LOC: RAVINDER PHONE #: [phone] EXAM DATE: 12/04/2018 STATUS: REG [facility] FAX #: [phone] RAD #: [id number] D/C DT PAGE 2 Signed Report Patient Name: LETICIA VELA Unit No: [id number] EXAMS: CPT CODE: [id number] XR FLUORO FOR SPINE INJ 16007 (Continued) Orig Print D/T: S: 12/04/2018 (1531) [facility] NAME: LETICIA VELA [address] [facility] PHYS: Darren Shore MD [place], [place] [address] : 1940 AGE: 78 SEX: F LOC: RAVINDER PHONE #: [phone] EXAM DATE: 12/04/2018 STATUS: REG [facility] FAX #: [phone] RAD #: [id number] D/C DT PAGE 3 Signed Report
--- NOTE | 2022-05-09 22:04 | RAD REPORT ---
EXAM DESCRIPTION: RAD - Chest Single View - 05/09/2022 9:50 pm CLINICAL HISTORY: COUGH COMPARISON: Chest Single View dated 09/28/2021; Chest Single View dated 09/13/2018; Chest Pa And Lat (2 Views) dated 09/13/2018; Chest Single View dated 09/12/2018 FINDINGS: Lines: None. Lungs: No evidence of edema or pneumonia. Pleural: No significant pleural effusions or pneumothorax. Cardiac: The heart size is within normal limits. Mediastinum: Within normal limits. Bones: No acute fractures. Other: None IMPRESSION: No acute cardiopulmonary disease.
[2022-05-09 22:19] LABS: Absolute Lymphocytes (CBC) 0.9 K/uL (0.7-4.9); Hematocrit 49.6 % (36.0-45.0); Lymphocytes % 9.3 % (15.3-44.8); MCV 89.8 fL (80-100); MPV 7.7 fL (7.6-11.3); RBC Red Blood Cell Count 5.52 M/uL (3.86-4.86)
[2022-05-09 22:43] LABS: ALT/SGPT 26 U/L (12-78); AST/SGOT 26 U/L (15-37); Albumin 3.7 g/dL (3.4-5.0); Alkaline Phosphatase 124 U/L (45-117); BUN Blood Urea Nitrogen 16 mg/dL (7-18); Bicarbonate 22 mmol/L (21-32); Bilirubin Direct 0.1 mg/dL (0-0.2); Bilirubin Total 0.4 mg/dL (0.2-1.0); Glomerular Filtration Rate 47 ml/min (=/>90); Glucose Level 125 mg/dL (74-106); Lipase 62 U/L (73-393); Magnesium 1.7 mg/dL (1.8-2.4); NT PRO-BNP 2340 pg/mL (<450); Potassium 3.9 mmol/L (3.5-5.1); Sodium Level 140 mmol/L (136-145); Thyroid Stimulating Hormone 0.091 uIU/mL (0.360-3.740); Troponin High Sensitivity 39.4 pg/mL (<58.9)
[2022-05-09] MEDS ORDERED: HYDROCORTISONE SUC 100 MG INJ ONE (22:43)
[2022-05-09] MEDS ORDERED: CEFTRIAXONE 1000 MG/VIAL ONE (22:43)
[2022-05-09] MEDS ORDERED: NA CHLORIDE 0.9% 1,000 ML ONE (22:43)
[2022-05-09] MEDS ORDERED: FAMOTIDINE 20 MG/2 ML VIAL IV ONE (22:44)
--- NOTE | 2022-05-09 22:44 | RAD REPORT ---
EXAM DESCRIPTION: CT - Head Brain Wo Cont - 05/09/2022 10:31 pm CLINICAL HISTORY: Mental status change, persistent or worsening COMPARISON: Head Brain Wo Cont dated 05/05/2022; Head Brain Wo Cont dated 09/28/2021 TECHNIQUE: All CT scans are performed using dose optimization technique as appropriate and may inclu de automated exposure control or mA/KV adjustment according to patient size. FINDINGS: No intracranial hemorrhage, hydrocephalus or extra-axial fluid collection.No areas of brai n edema or evidence of midline shift. The paranasal sinuses and mastoids are clear. The calvarium is intact. IMPRESSION: No acute intracranial abnormality.
[2022-05-09 22:47] LABS: SARS-CoV-2 Antigen Rapid Res Negative (Negative)
[2022-05-09 22:59] LABS: Urine Blood 2+ (Negative); Urine Glucose Negative (Negative); Urine Protein 2+ (Negative); Urine Specific Gravity >=1.030 (1.005-1.030); Urine pH 5.5 (5.0-7.0)
[2022-05-09 23:08] LABS: Blood Gas Oxyhemoglobin 95.7 % (94-97)
[2022-05-09 23:28] LABS: Barbiturates POSITIVE (NEGATIVE); Benzodiazepines NEGATIVE (NEGATIVE); Cocaine NEGATIVE (NEGATIVE); METHAMPHETAM NEGATIVE (NEGATIVE); Methadone NEGATIVE (NEGATIVE); Opiates NEGATIVE (NEGATIVE); Phencyclidine NEGATIVE (NEGATIVE); THC Cannibis NEGATIVE (NEGATIVE)
[2022-05-09] MEDS ORDERED: MAGNESIUM SULFATE 1 gm IVPB 1 GM/100 ML BAG IV ONE (23:47)
--- NOTE | 2022-05-10 00:08 | ER ---
Nurse's Notes [facility] Name: Era Agustin Age: 81 yrs Sex: Female : 1940 Arrival Date: 05/09/2022 Time: 20:43 Bed 20 Private MD: Diagnosis: Headache;Altered mental status, unspecified Presentation: 05/09 21:11 Chief complaint: EMS states: "We were toned out for an unresponsive 81 YO F. When we vc1 arrived she was able to answer yes or no but unable to have any other responses. She has a head CT on that was unremarkable. When we arrived her BP was 188/112 she was 92-94 percent on RA. EKG showed sinus tach.". Ebola Screen: No symptoms or risks identified at this time. Initial Sepsis Screen: Does the patient meet any 2 criteria? HR > 90 bpm. No. Patient's initial sepsis screen is negative. Does the patient have a suspected source of infection? No. Patient's initial sepsis screen is negative. Risk Assessment: Do you want to hurt yourself or someone else? Patient reports no desire to harm self or others. Onset of symptoms is unknown. 21:11 Method Of Arrival: EMS: [facility] vc1 21:11 Acuity: CLARENCE 2 bb 21:11 Coronavirus screen: Vaccine status: Patient reports receiving the 2nd dose of the covid vc1 vaccine. POA unsure of waiter/waitress buffet. Triage Assessment: 21:16 General: Appears comfortable, Behavior is flat, uncooperative, Able to say her name vc1 first and last name. . Pain: Denies pain. Neuro: Level of Consciousness is lethargic, Oriented to person, Computer Systems Support Specialist are weak bilaterally. Cardiovascular: Patient's skin is warm and dry. Respiratory: Airway is patent Respiratory effort is even, unlabored, Respiratory pattern is regular, symmetrical. GI: No deficits noted. : No deficits noted. Historical: - Allergies: 21:16 No Known Allergies; vc1 - Home Meds: 21:16 lovastatin 20 mg Oral tab 1 tab once daily [Active]; enalapril maleate 10 mg Oral tab 1 vc1 tab once daily [Active]; levothyroxine 125 mcg cap 1 cap once daily [Active]; meloxicam 15 mg oral TbDi 1 tab once daily [Active]; Mestinon 60 mg Oral tab 1 tab 3 times per day [Active]; montelukast 10 mg oral tab 1 tab once daily [Active]; estradiol 0.5 mg Oral tab 1 tab once daily [Active]; omeprazole 40 mg Oral cpDR 1 cap once daily [Active]; gabapentin 100 mg oral tab four times a day [Active]; [place] 10-325 mg Oral tab 1 tab every 4 hours [Active]; alprazolam 1 mg Oral tab 1 tab 3 times per day [Active]; Zyrtec 5 mg Oral tab 1 tab once daily [Active]; Zyzal daily [Active]; [place] eyes antioxidant 2 tab daily [Active]; Iron CR 65 Oral cpER 65 mg [Active]; - PMHx: 21:16 Back pain; Hyperlipidemia; Hypertension; Hypothyroidism; vc1 - PSHx: 21:16 None; vc1 - Immunization history:: Adult Immunizations up to date, Client reports receiving the 2nd dose of the Covid vaccine, unsure of waiter/waitress buffet. - Social history:: Smoking status: Patient denies any tobacco usage or history of. Screenin:27 Abuse screen: Denies threats or abuse. Nutritional screening: No deficits noted. vc1 Tuberculosis screening: No symptoms or risk factors identified. Fall Risk None identified. Assessment: 22:00 Reassessment: See triage assessment. vc1 23:00 Reassessment: No changes from previously documented assessment. Patient and/or family vc1 updated on plan of care and expected duration. Pain level reassessed. 05/10 00:00 Reassessment: No changes from previously documented assessment. Patient and/or family vc1 updated on plan of care and expected duration. Pain level reassessed. 01:00 Reassessment: No changes from previously documented assessment. Patient and/or family vc1 updated on plan of care and expected duration. Pain level reassessed. 01:00 Neuro: Level of Consciousness is lethargic, Oriented to person. vc1 20:12 Reassessment: gave report to nurse at [facility]. ja4 Vital Signs: 05/09 21:00 BP 172 / 102; Pulse 112; Resp 20; Pulse Ox 96% on 2 lpm NC; vc1 21:11 BP 163 / 100; Pulse 106; Resp 20; Temp 97.9(O); Pulse Ox 100% on R/A; Pain 0/10; vc1 22:00 BP 186 / 108; Pulse 100; Resp 20; Pulse Ox 100% on 2 lpm NC; vc1 23:00 BP 168 / 104; Pulse 110; Resp 20; Pulse Ox 100% ; vc1 05/10 00:00 BP 156 / 102; Pulse 111; Resp 22; Pulse Ox 98% on 2 lpm NC; vc1 NIH Stroke Scale Scores: 05/09 21:38 NIHSS Score: 4 lubna ED Course: 20:43 Patient arrived in ED. bb 20:56 Damari Desai, RN is Primary Nurse. vc1 21:16 Triage completed. vc1 21:18 Scott Stephenson MD is Attending Physician. lubna 21:27 Arm band placed on right wrist. vc1 21:30 Patient has correct armband on for positive identification. Bed in low position. Call vc1 light in reach. Side rails up X2. Client placed on continuous cardiac and pulse oximetry monitoring. NIBP monitoring applied. 21:52 XRAY Chest (1 view) In Process Unspecified. EDMS 22:32 Head Brain Wo Cont In Process Unspecified. EDMS 05/10 00:05 Haim Sanchez MD is Hospitalizing Provider. lubna 00:58 Assist provider with lumbar puncture: Set up LP tray. Performed by Scott Stephenson MD aa9 Procedure unsuccessful. Patient tolerated well. 01:30 Patient admitted, IV remains in place. vc1 03:16 Gilberto Bates MD is Hospitalizing Provider. sb3 Administered Medications: 05/09 22:41 Drug: NS 0.9% 1000 ml Route: IV; Rate: 1 bolus; Site: right antecubital; vc1 23:41 Follow up: IV Status: Completed infusion; IV Intake: 1000ml vc1 22:41 Drug: Solu-CORTEF (hyrdoCORTISONE) 100 mg Route: IVP; Site: right antecubital; vc1 05/10 04:39 Follow up: Response: No adverse reaction vc1 05/09 22:41 Drug: Pepcid (famotidine) 20 mg Route: IVP; Site: right antecubital; vc1 05/10 04:39 Follow up: Response: No adverse reaction vc1 05/09 22:41 Drug: Rocephin (cefTRIAXone) 1 grams Route: IV; Rate: per protocol; Site: right vc1 antecubital; 22:44 Follow up: IV Status: Completed infusion; IV Intake: 10ml vc1 23:43 Drug: Magnesium Sulfate 1 grams Route: IVPB; Infused Over: 1 hrs; Site: right as6 antecubital; 05/10 00:43 Follow up: IV Status: Completed infusion; IV Intake: 100ml vc1 01:12 Drug: Rocephin (cefTRIAXone) 1 grams Route: IV; Rate: per protocol; Site: right as6 antecubital; 01:14 Follow up: IV Status: Completed infusion; IV Intake: 10ml vc1 Medication: 01:30 VIS not applicable for this client. vc1 Intake: 05/09 22:44 IV: 10ml; Total: 10ml. vc1 23:41 IV: 1000ml; Total: 1010ml. vc1 05/10 00:43 IV: 100ml; Total: 1110ml. vc1 01:14 IV: 10ml; Total: 1120ml. vc1 Outcome: 00:06 Decision to Hospitalize by Provider. lubna 01:30 Admitted to ER Hold. Please see [facility] for further documentation. vc1 01:30 Condition: good 01:30 Instructed on the need for admit. 21:50 ER care complete, transfer ordered by . rn 21:58 Patient left the ED. ja4 NIH Stroke Scale - NIH Stroke Score Date: 05/09/2022 Time: 21:38 Total Score = 4 1a. Level of Consciousness (LOC) - 1(Not Alert) 1b. Level of Consciousness (LOC) (Month \\T\\ Age) - 1(One) 1c. LOC Commands (Open \\T\\ Closes Eyes/Airport Operations Specialist) - 0(Both) 2. Best Gaze (Lateral Gaze Paresis) - 0(Normal) 3. Visual Field Loss - 0(No visual loss) 4. Facial Palsy - 0(Normal) 5a. Left Arm: Motor (10-second hold) - 0(No drift) 5b. Right Arm: Motor (10-second hold) - 0(No drift) 6a. Left Leg: Motor (5-second hold - always test supine) - 0(No drift) 6b. Right Leg: Motor (5-second hold - always test supine) - 0(No drift) 7. Limb Ataxia (finger/nose \\T\\ heel/tellez - test with eyes open) - 0(Absent) 8. Sensory Loss (pinprick arms/legs/face) - 0(Normal) 9. Best Language: Aphasia (description/naming/reading) - 1(Mild to moderate aphasia) 10. Dysarthria (speech clarity - read or repeat words) - 1(Mild to Moderate) 11. Extinction and Inattention (visual/tactile/auditory/spatial/personal) - 0(No abnormality) Initials: lubna Signatures: Dispatcher [employer] Scott Rushing MD MD cha Ballard, Brenda, RN RN bb Javier Sanchez MD MD rn Slawson, Ashby, RN RN as6 Damari Desai RN RN vc1 Monalisa Mg PA PA sb3 Johanne Barbosa, RN RN aa9 Mina Ken, RN RN ja4 Corrections: (The following items were deleted from the chart) 05/09 23:18 21:11 Acuity: CLARENCE 3 vc1 bb
--- NOTE | 2022-05-10 00:08 | EDPHYS ---
Physician Documentation [facility] Name: Era Agustin Age: 81 yrs Sex: Female : 1940 Arrival Date: 05/09/2022 Time: 20:43 Bed 20 Private MD: ED Physician Scott Stephenson HPI: 05/09 21:31 This 81 yrs old Female presents to ER via EMS with complaints of weak and lubna altered. 21:31 The patient presents with confusion, decreased mental status. Onset: The lubna symptoms/episode began/occurred 4 day(s) ago. Possible causes: CVA or TIA, drug use, alcohol, head injury, low blood sugar, seizure, sepsis. Associated signs and symptoms: Pertinent positives: agitation, confusion. Current symptoms: In the emergency department the patient's symptoms are unchanged from the initial presentation. Patient's baseline: Neuro:. The patient has not experienced similar symptoms in the past. Historical: - Allergies: 21:16 No Known Allergies; vc1 - Home Meds: 21:16 lovastatin 20 mg Oral tab 1 tab once daily [Active]; enalapril maleate 10 mg Oral tab 1 vc1 tab once daily [Active]; levothyroxine 125 mcg cap 1 cap once daily [Active]; meloxicam 15 mg oral TbDi 1 tab once daily [Active]; Mestinon 60 mg Oral tab 1 tab 3 times per day [Active]; montelukast 10 mg oral tab 1 tab once daily [Active]; estradiol 0.5 mg Oral tab 1 tab once daily [Active]; omeprazole 40 mg Oral cpDR 1 cap once daily [Active]; gabapentin 100 mg oral tab four times a day [Active]; [place] 10-325 mg Oral tab 1 tab every 4 hours [Active]; alprazolam 1 mg Oral tab 1 tab 3 times per day [Active]; Zyrtec 5 mg Oral tab 1 tab once daily [Active]; Zyzal daily [Active]; Hellen eyes antioxidant 2 tab daily [Active]; Iron CR 65 Oral cpER 65 mg [Active]; - PMHx: 21:16 Back pain; Hyperlipidemia; Hypertension; Hypothyroidism; vc1 - PSHx: 21:16 None; vc1 - Immunization history:: Adult Immunizations up to date, Client reports receiving the 2nd dose of the Covid vaccine, unsure of first beater. - Social history:: Smoking status: Patient denies any tobacco usage or history of. ROS: 21:38 Constitutional: Negative for fever, chills, and weight loss, Eyes: Negative for injury, lbuna pain, redness, and discharge, ENT: Negative for injury, pain, and discharge, Neck: Negative for injury, pain, and swelling, Cardiovascular: Negative for chest pain, palpitations, and edema, Respiratory: Negative for shortness of breath, cough, wheezing, and pleuritic chest pain, Abdomen/GI: Negative for abdominal pain, nausea, vomiting, diarrhea, and constipation, Back: Negative for injury and pain, : Negative for injury, bleeding, discharge, and swelling, MS/Extremity: Negative for injury and deformity, Skin: Negative for injury, rash, and discoloration, Psych: Negative for depression, anxiety, suicide ideation, homicidal ideation, and hallucinations, Allergy/Immunology: Negative for hives, rash, and allergies, Endocrine: Negative for neck swelling, polydipsia, polyuria, polyphagia, and marked weight changes, Hematologic/Lymphatic: Negative for swollen nodes, abnormal bleeding, and unusual bruising. 21:38 Neuro: Positive for altered mental status, dizziness, gait disturbance, speech changes, weakness. Exam: 21:38 Constitutional: This is a well developed, well nourished patient who is awake, alert, lubna and in no acute distress. Head/Face: Normocephalic, atraumatic. Eyes: Pupils equal round and reactive to light, extra-ocular motions intact. Lids and lashes normal. Conjunctiva and sclera are non-icteric and not injected. Cornea within normal limits. Periorbital areas with no swelling, redness, or edema. ENT: Nares patent. No nasal discharge, no septal abnormalities noted. Tympanic membranes are normal and external auditory canals are clear. Oropharynx with no redness, swelling, or masses, exudates, or evidence of obstruction, uvula midline. Mucous membranes moist. Neck: Trachea midline, no thyromegaly or masses palpated, and no cervical lymphadenopathy. Supple, full range of motion without nuchal rigidity, or vertebral point tenderness. No Meningismus. Chest/axilla: Normal chest wall appearance and motion. Nontender with no deformity. No lesions are appreciated. Cardiovascular: Regular rate and rhythm with a normal S1 and S2. No gallops, murmurs, or rubs. Normal PMI, no JVD. No pulse deficits. Respiratory: Lungs have equal breath sounds bilaterally, clear to auscultation and percussion. No rales, rhonchi or wheezes noted. No increased work of breathing, no retractions or nasal flaring. Abdomen/GI: Soft, non-tender, with normal bowel sounds. No distension or tympany. No guarding or rebound. No evidence of tenderness throughout. Back: No spinal tenderness. No costovertebral tenderness. Full range of motion. Skin: Warm, dry with normal turgor. Normal color with no rashes, no lesions, and no evidence of cellulitis. MS/ Extremity: Pulses equal, no cyanosis. Neurovascular intact. Full, normal range of motion. Psych: Awake, alert, with orientation to person, place and time. Behavior, mood, and affect are within normal limits. 21:38 Neuro: Orientation: is normal, appropriate for stated age, no acute changes, Mentation: inappropriate for stated age, slow to respond, confused, Memory: unable to test, Cranial nerves: no acute changes, Cerebellar function: unable to test, Motor: moves all fours, Strength is 3/5 in the , Gait: not tested. seizure activity, is not displayed by the patient. 21:42 Radiologist reports: see report lubna Vital Signs: 21:00 BP 172 / 102; Pulse 112; Resp 20; Pulse Ox 96% on 2 lpm NC; vc1 21:11 BP 163 / 100; Pulse 106; Resp 20; Temp 97.9(O); Pulse Ox 100% on R/A; Pain 0/10; vc1 22:00 BP 186 / 108; Pulse 100; Resp 20; Pulse Ox 100% on 2 lpm NC; vc1 23:00 BP 168 / 104; Pulse 110; Resp 20; Pulse Ox 100% ; vc1 05/10 00:00 BP 156 / 102; Pulse 111; Resp 22; Pulse Ox 98% on 2 lpm NC; vc1 NIH Stroke Scale Scores: 05/09 21:38 NIHSS Score: 4 lubna Procedures: 05/10 00:57 Lumbar Puncture: Patient placed in left lateral decubitus position. Collected 0 ml's of lubna Puncture site dressed with band aid, Procedure unsuccessful. Patient tolerated well. MDM: 05/09 21:18 Patient medically screened. [facility] 21:40 Differential diagnosis: CVA, TIA, Dementia, paralysis. Differential Diagnosis: CVA, lubna electrolyte abnormality, intracranial bleed, meningitis, overdose, pneumonia, seizure, sepsis, volume depletion, generalized weakness, head injury, hyperventilation, hypovolemia. Data reviewed: nurses notes. Data interpreted: security monitor: rate is 106 beats/min, rhythm is regular, Pulse oximetry: on room air. Test interpretation: by ED physician or midlevel provider: ECG, plain radiologic studies. Counseling: I had a detailed discussion with the patient and/or guardian regarding: the historical points, exam findings, and any diagnostic results supporting the discharge/admit diagnosis, lab results, radiology results. 05/09 21:30 Order name: Basic Metabolic Panel; Complete Time: 22:53 [facility] 05/09 21: Order name: CBC with Diff; Complete Time: 22:40 [facility] 05/09 21:30 Order name: LFT's; Complete Time: 22:53 [facility] 05/09 21:30 Order name: Magnesium; Complete Time: 22:53 [facility] 05/09 21:30 Order name: NT PRO-BNP; Complete Time: 22:53 [facility] 05/09 21:30 Order name: PT-INR; Complete Time: 00:00 [facility] 05/09 21:30 Order name: Troponin HS; Complete Time: 22:53 [facility] 05/09 21:30 Order name: SARS RAPID; Complete Time: 22:53 [facility] 05/09 21:30 Order name: Lipase; Complete Time: 22:53 [facility] 05/09 21:30 Order name: Urine Culture [facility] 05/09 21:30 Order name: Acetaminophen; Complete Time: 22:53 [facility] 05/09 21:30 Order name: ETOH Level; Complete Time: 22:40 [facility] 05/09 21:30 Order name: Ptt, Activated; Complete Time: 00:00 [facility] 05/09 21:30 Order name: Salicylate; Complete Time: 22:40 [facility] 05/09 21:30 Order name: Urine Drug Screen; Complete Time: 00:00 [facility] 05/09 21:31 Order name: TSH; Complete Time: 22:53 [facility] 05/09 22:09 Order name: Lactate; Complete Time: 23:17 [facility] 05/09 22:09 Order name: Procalcitonin; Complete Time: 00:00 [facility] 05/09 22:09 Order name: Blood Culture Adult (2) [facility] 05/09 22:53 Order name: ABG; Complete Time: 00:00 [facility] 05/09 22:59 Order name: Urine Dipstick-Ancillary; Complete Time: 23:17 [facility] 05/10 00:02 Order name: Spinal Fluid Profile [facility] 05/10 02:41 Order name: CBC with Automated Diff EDAL 05/10 02:56 Order name: Basic Metabolic Panel EDAL 05/10 02:56 Order name: Phosphorus EDMS 05/10 02:56 Order name: Lipid Profile EDAL 05/10 02:56 Order name: Magnesium EDMS 05/10 03:54 Order name: Manual Differential EDAL 05/10 04:31 Order name: C-Reactive Protein EDAL 05/10 05:29 Order name: Ammonia EDAL 05/09 21:30 Order name: XRAY Chest (1 view); Complete Time: 22:40 [facility] 05/09 21:30 Order name: EKG; Complete Time: 21:31 [facility] 05/09 21:30 Order name: Cardiac monitoring; Complete Time: 22:41 [facility] 05/09 21:30 Order name: EKG - Nurse/Tech; Complete Time: 22:41 [facility] 05/09 21:30 Order name: IV Saline Lock; Complete Time: 22:42 [facility] 05/09 21:30 Order name: Labs collected and sent; Complete Time: 22:42 [facility] 05/09 21:30 Order name: O2 Per Protocol; Complete Time: 22:42 [facility] 05/09 21:30 Order name: O2 Sat Monitoring; Complete Time: 22:42 [facility] 05/09 21:30 Order name: CT Head Brain wo Cont [facility] 05/09 21:30 Order name: Urine Dipstick-Ancillary (obtain specimen); Complete Time: 22:58 [facility] 05/09 21:30 Order name: Suicide Screening (Mcpherson); Complete Time: 22:57 [facility] 05/09 21:35 Order name: Head Brain Wo Cont; Complete Time: 22:53 [facility] 05/09 22:09 Order name: Isabel; Complete Time: 22:57 [facility] 05/10 00:02 Order name: Lumbar Puncture Setup; Complete Time: 00:17 [facility] 05/10 05:35 Order name: Sedimentation Rate, [place] [facility] 05/10 08:11 Order name: T4 Free EDAL 05/10 10:53 Order name: Blood Culture EDMS 05/10 21:44 Order name: MRI EDMS Administered Medications: 22:41 Drug: NS 0.9% 1000 ml Route: IV; Rate: 1 bolus; Site: right antecubital; vc1 23:41 Follow up: IV Status: Completed infusion; IV Intake: 1000ml vc1 22:41 Drug: Solu-CORTEF (hyrdoCORTISONE) 100 mg Route: IVP; Site: right antecubital; 1 05/10 04:39 Follow up: Response: No adverse reaction 1 05/09 22:41 Drug: Pepcid (famotidine) 20 mg Route: IVP; Site: right antecubital; 1 05/10 04:39 Follow up: Response: No adverse reaction 1 05/09 22:41 Drug: Rocephin (cefTRIAXone) 1 grams Route: IV; Rate: per protocol; Site: right 1 antecubital; 22:44 Follow up: IV Status: Completed infusion; IV Intake: 10ml vc1 23:43 Drug: Magnesium Sulfate 1 grams Route: IVPB; Infused Over: 1 hrs; Site: right as6 antecubital; 05/10 00:43 Follow up: IV Status: Completed infusion; IV Intake: 100ml vc1 01:12 Drug: Rocephin (cefTRIAXone) 1 grams Route: IV; Rate: per protocol; Site: right as6 antecubital; 01:14 Follow up: IV Status: Completed infusion; IV Intake: 10ml vc1 Disposition: 07:03 Critical Care:. lubna Disposition Summary: 05/10/22 21:50 Transfer Ordered Transfer Location: Other Acute Care Facility rn Reason: Higher level of care rn Condition: Stable(05/10/22 21:50) rn Problem: new(05/10/22 21:50) rn Symptoms: are unchanged(05/10/22 21:50) rn Accepting Physician: (05/10/22 21:58) ja4 Diagnosis - Headache(05/10/22 21:50) rn - Altered mental status, unspecified(05/10/22 21:50) rn Forms: - Medication Reconciliation Form rn - SBAR form paid internship time excluding procedures: 07:03 Critical care time: Bedside Care: 30 minutes, Consultation: 10 minutes, Family lubna Intervention: 10 minutes. Total time: 50 minutes NIH Stroke Scale - NIH Stroke Score Date: 05/09/2022 Time: 21:38 Total Score = 4 1a. Level of Consciousness (LOC) - 1(Not Alert) 1b. Level of Consciousness (LOC) (Month \T\ Age) - 1(One) 1c. LOC Commands (Open \T\ Closes Eyes/Surgical Services Coordinator) - 0(Both) 2. Best Gaze (Lateral Gaze Paresis) - 0(Normal) 3. Visual Field Loss - 0(No visual loss) 4. Facial Palsy - 0(Normal) 5a. Left Arm: Motor (10-second hold) - 0(No drift) 5b. Right Arm: Motor (10-second hold) - 0(No drift) 6a. Left Leg: Motor (5-second hold - always test supine) - 0(No drift) 6b. Right Leg: Motor (5-second hold - always test supine) - 0(No drift) 7. Limb Ataxia (finger/nose \T\ heel/tellez - test with eyes open) - 0(Absent) 8. Sensory Loss (pinprick arms/legs/face) - 0(Normal) 9. Best Language: Aphasia (description/naming/reading) - 1(Mild to moderate aphasia) 10. Dysarthria (speech clarity - read or repeat words) - 1(Mild to Moderate) 11. Extinction and Inattention (visual/tactile/auditory/spatial/personal) - 0(No abnormality) Initials: lubna Signatures: Dispatcher [employer] EDMS Emperatriz Moran RN RN mw Anderson, Corey, MD MD cha Nieto, Roman, MD MD rn Slawson, Ashby RN RN as6 Damari Desai RN RN vc1 Monalisa Mg PA PA sb3 Mina Ken RN RN ja4 Corrections: (The following items were deleted from the chart) 00:40 00:06 Telemetry/MedSurg (Inpatient) lubna miramontes 00:40 00:06 lubna miramontes 03:16 00:06 Haim Sanchez cha3 21:50 00:06 Inpatient Admission lubna rn 21:50 00:06 Fair lubna rn 21:50 00:06 new lubna rn 21:50 00:06 have improved lubna espinoza 21:50 00:06 Standard lubna rn 21:50 00:06 Altered mental status, unspecified lubna espinoza :50 00:06 Headache lubna rn : 00:06 Essential (primary) hypertension lubna rn : 00:40 [facility] ER HOLD rn 00:40 ERHOLD- mw rn : 03:16 Gilberto Bates3 rn : 21:50 rn ja4
[2022-05-10] MEDS ORDERED: CEFTRIAXONE 1000 MG/VIAL ONE ×2 (01:11→09:17)
[2022-05-10] MEDS ORDERED: NA CHLORIDE 0.9% 50 ML ONE (01:11)
[2022-05-10] MEDS ORDERED: ONDANSETRON 4 MG/2 ML VIAL IV PRN (02:07)
[2022-05-10] MEDS ORDERED: ACETAMINOPHEN 500 MG TAB PO PRN (02:07)
[2022-05-10 02:39] LABS: Absolute Lymphocytes (CBC) 0.6 K/uL (0.7-4.9); Hematocrit 46.8 % (36.0-45.0); Lymphocytes % 7.4 % (15.3-44.8); MCV 90.3 fL (80-100); MPV 7.7 fL (7.6-11.3); RBC Red Blood Cell Count 5.19 M/uL (3.86-4.86)
[2022-05-10 02:54] VITALS: BMI 25.7
[2022-05-10 02:55] LABS: Magnesium 2.1 mg/dL (1.8-2.4); Phosphorus 2.5 mg/dL (2.5-4.9); Potassium 3.9 mmol/L (3.5-5.1)
--- NOTE | 2022-05-10 03:21 | P.HP ---
Certification for Inpatient Patient admitted to: Inpatient With expected LOS: >2 Midnights Patient will require the following post-hospital care: None Practitioner: I am a practitioner with admitting privileges, knowledge of patient current condition, hospital course, and medical plan of care. Services: Services provided to patient in accordance with Admission requirements found in Title 42 Section 412.3 of the Code of Federal Regulations <Monalisa Mg - Last Filed: 05/10/22 04:11> Patient History Date of Service: 05/10/22 Primary Care Provider: Salome Reason for admission: AMS History of Present Illness: Patient is a 81-year-old female with history of hypertension, GERD, and hypothyroidism who presented to the ED via EMS with altered mental status. Patient lives at home alone and completes her ADLs independently but they were toned out today for her being "unresponsive. " Patient is answering yes or no questions but not respond any further. She is oriented to self only. Vital signs stable. Labs unremarkable. Head CT negative. Lumbar puncture was attempted but unsuccessful as patient has had laminectomy. Patient was here 4 days ago for headache and discharged with fiorcet. She again complains of headache today and dizziness, ataxia, and weakness. She was given 2 g Rocephin, Pepcid, hydrocortisone, 1 L fluid in the ED. Patient is admitted for further evaluation and treatment. Home medications list reviewed: Yes - Past Medical/Surgical History Diabetic: No -: Hypertension -: GERD -: Anxiety -: Appendectomy 1968 -: Hysterectomy 1970 -: Thyroidectomy 1974 -: Back Surgery 1979 -: Bilateral Cataract Surgery 2007 -: Lapband 2014 -: Septoplasty 2015 -: Left Knee Replacement 2011 Psychosocial/ Personal History: Patient lives at home alone. - Family History Family History: Reviewed- Non-Contributory - Social History Smoking Status: Former smoker Alcohol use: Yes CD- Drugs: No Caffeine use: Yes Place of Residence: Home <Monalisa Mg - Last Filed: 05/10/22 04:11> Date of Service: 05/10/22 <Gilberto Bates - Last Filed: 05/10/22 15:39> Allergies No Known Drug Allergies Allergy (Verified 02/01/16 11:27) Unknown Home Medications: Alprazolam [Alprazolam ER] 1 mg PO BEDTIME 04/05/12 Cetirizine HCl [Zyrtec] 10 mg PO DAILY 6PM 04/05/12 Enalapril Maleate 10 mg PO DAILY 04/05/12 Lovastatin 20 mg PO DAILY 04/05/12 Omeprazole 40 mg PO DAILY 04/05/12 Pyridostigmine [place] [Mestinon*] 60 mg PO BID 04/05/12 estradioL [Estradiol] 0.5 mg PO DAILY 04/05/12 Iron 65 mg PO DAILY 6PM 02/01/16 Montelukast [Singulair*] 10 mg PO DAILY 6PM 02/01/16 Hydrocodone 10/APAP 325 [[place] 10/325*] 1 tab PO Q4HR PRN 09/12/18 Gabapentin 300 mg PO TID 05/10/22 Levothyroxine [Synthroid*] 125 mcg PO [id number] 05/10/22 Meloxicam [Mobic] 15 mg PO DAILY 05/10/22 Review of Systems Neurological: Weakness, Confusion, Other (Headache) <Monalisa Mg - Last Filed: 05/10/22 04:11> Physical Examination - Physical Exam General: Alert, In no apparent distress, Oriented x1, Confused HEENT: Atraumatic, PERRLA, EOMI, Sclerae nonicteric Neck: Supple, 2+ carotid pulse no bruit, No LAD, Without JVD or thyroid abnormality Respiratory: Clear to auscultation bilaterally, Normal air movement Cardiovascular: Regular rate/rhythm, Normal S1 S2 Gastrointestinal: Normal bowel sounds, No tenderness Musculoskeletal: No tenderness Integumentary: No rashes Neurological: Normal speech, Sensation intact - Studies Laboratory Data (last 24 hrs) 05/09/22 22:02: PT 11.0, INR 1.00, APTT 40.6 H 05/09/22 22:02: WBC 9.70, Hgb 16.4 H, Hct 49.6 H, Plt Count 310 05/09/22 22:02: Sodium 140, Potassium 3.9, BUN 16, Creatinine 1.18, Glucose 125 H, Magnesium 1.7 L, Total Bilirubin 0.4, AST 26, ALT 26, Alkaline Phosphatase 124 H, Lipase 62 L <Monalisa Mg - Last Filed: 05/10/22 04:11> - Studies Laboratory Data (last 24 hrs) 05/09/22 22:02: PT 11.0, INR 1.00, APTT 40.6 H 05/09/22 22:02: WBC 9.70, Hgb 16.4 H, Hct 49.6 H, Plt Count 310 05/09/22 22:02: Sodium 140, Potassium 3.9, BUN 16, Creatinine 1.18, Glucose 125 H, Magnesium 1.7 L, Total Bilirubin 0.4, AST 26, ALT 26, Alkaline Phosphatase 124 H, Lipase 62 L <Gilberto Bates - Last Filed: 05/10/22 15:39> Assessment and Plan - Problems (Diagnosis) (1) AMS (altered mental status) Current Visit: Yes Status: Acute Qualifiers: Altered mental status type: unspecified Qualified Code(s): R41.82 - Altered mental status, unspecified (2) Atrial fibrillation Current Visit: No Status: Chronic Qualifiers: Atrial fibrillation type: paroxysmal Qualified Code(s): I48.0 - Paroxysmal atrial fibrillation (3) HTN (hypertension) Current Visit: Yes Status: Chronic Qualifiers: Hypertension type: primary hypertension Qualified Code(s): I10 - Essential (primary) hypertension (4) Hypothyroidism Current Visit: Yes Status: Chronic Qualifiers: Hypothyroidism type: unspecified Qualified Code(s): E03.9 - Hypothyroidism, unspecified (5) Hyperlipidemia Current Visit: Yes Status: Acute Qualifiers: Hyperlipidemia type: mixed hyperlipidemia Qualified Code(s): E78.2 - Mixed hyperlipidemia - Plan -Fluoroscopy guided lumbar puncture ordered for the morning. -Neurology consult. -ESR, CRP, ammonia ordered -N.p.o. Gentle IV hydration. -Vanc and rocephin for possible bacterial meningitis coverage. Patient complaining of headache. No nuchal rigidity. Some decorticate posturing reported by nursing staff. -Patient has been in sinus tach consistently at 110-115. No fever. No white count. -Physical therapy and speech therapy consult. -Consider MRI if neurologic symptoms persist. -Continue to monitor on telemetry. -Monitor and replete electrolytes per protocol -Reconcile and continue home medications -Lovenox for VTE ppx -Full code Discharge Plan: Home Plan to discharge in: Greater than 2 days - Advance Directives Does patient have a Living Will: No Does patient have a Durable POA for Healthcare: No - Code Status/Comfort Care Code Status Assessed: Yes (Full) Critical Care: No Time Spent Managing Pts Care (In Minutes): 50 <Monalisa Mg - Last Filed: 05/10/22 04:11> Physician Review: Patient Assessed, Agree with Above Assessment and Plan Physician Review Additional Text: Discussed her case with her stated MPOA at bedside. It appears last known normal was on 05/08/2022 at 12:00 PM. Differential is broad, but includes, but is not limited to, CVA vs meningitis. - Ordered STAT MRI brain, MRA head/neck. - Ordered vancomycin, ceftriaxone, ampicillin, acyclovir - Started on aspirin, atorvastatin, folic acid - Dr. Stephenson was unsuccessful at obtaining LP overnight due to extensive back surgery. Will require IR-guided LP. IR is not available until 05/12/2022. Discussed with Dr. King at [facility], who is willing to complete doc-to-doc once MRI results have returned. Will continue to monitor closely. Gilberto Bates M.D. <Gilberto Bates - Last Filed: 05/10/22 15:39>
[2022-05-10] MEDS ORDERED: MORPHINE 2 MG/ML SYR IV PRN (03:53)
[2022-05-10 03:54] LABS: Blood Morphology Comment NOT SEEN (NOT SEEN); Platelet Estimate ADEQ
[2022-05-10] MEDS ORDERED: VANCOMYCIN 1 GM in NA CHLORIDE 0.9% 250 ML IVPB SCH (04:00)
[2022-05-10 04:30] LABS: C-Reactive Protein 25.6 mg/L (<3.00)
[2022-05-10] MEDS ORDERED: NA CHLORIDE 0.9% 1,000 ML IV SCH (05:00)
[2022-05-10] MEDS ORDERED: VANCOMYCIN 1.75 GM in NA CHLORIDE 0.9% 500 ML IVPB ONE (05:00)
[2022-05-10] MEDS ORDERED: NA CHLORIDE 0.9% 1,000 ML ONE ×2 (05:25→18:08)
[2022-05-10] MEDS ORDERED: NA CHLORIDE 0.9% 500 ML ONE (05:25)
[2022-05-10] MEDS ORDERED: VANCOMYCIN 1 GM/VIAL ONE (05:25)
[2022-05-10] MEDS ORDERED: CEFTRIAXONE 1,000 MG in NA CHLORIDE 0.9% 50 ML IVPB SCH (09:00)
[2022-05-10] MEDS ORDERED: ENOXAPARIN 40 MG/0.4 ML SQ SCH (09:00)
[2022-05-10] MEDS ORDERED: ENOXAPARIN 40 MG/0.4 ML SQ ONE (09:17)
[2022-05-10] MEDS ORDERED: NA CHLORIDE 0.9% 100 ML ONE (09:17)
[2022-05-10] MEDS ORDERED: FOLIC ACID 1 MG TABLET PO SCH (15:40)
[2022-05-10] MEDS ORDERED: ASPIRIN 81 MG CHEWABLE TABLET PO SCH (15:40)
[2022-05-10] MEDS ORDERED: ACYCLOVIR INJ 600 MG in NA CHLORIDE 0.9% 100 ML IVPB SCH (16:00)
[2022-05-10] MEDS ORDERED: AMPICILLIN SODIUM 2 GM in NA CHLORIDE 0.9% 100 ML IV SCH (17:00)
--- NOTE | 2022-05-10 17:27 | P.DS ---
Admission Date: 05/10/22 Discharge Date: 05/10/22 Primary Care Provider: Salome Disposition: TRANSFER TO [facility] Comment: [facility] Discharge Condition: FAIR Reason for Admission: AMS Consultations: 1. Neurology 2. Infectious Diseases Procedures: 05/10/2022 - Unsuccessful Bedside Lumbar Puncture Hospital Course: DIAGNOSES: # Acute Toxic Metabolic Encephalopathy - concern for sepsis (tachycardia, tachypnea) possibly due to Meningitis # History of Atrial Fibrillation - currently in Sinus Tachycardia # Hypertension # Hyperlipidemia # Hypothyroidism # Gastroesophageal Reflux Disease HOSPITAL COURSE: Ms. Era Agustin is a 81 year old female with a past medical history significant for atrial fibrillation, hypertension, hypothyroidism, and hyperlipidemia who was admitted to the [facility] on 05/10/2022 for altered mental status. She was admitted to Medicine service for further evaluation. Differential diagnoses include, but are not limited to, cerebrovascular accident, meningitis, or status epilepticus (although seems less likely). A lumbar puncture was attempted in the emergency department, and was unsuccessful. She was started on empiric vancomycin, ceftriaxone, ampicillin, and acyclovir, and shortly after the initiation of these medications, she became slightly more responsive. I had a detailed conversation with her as well as her son, Remigio, who is at bedside. I explained that, at our facility, it is unlikely that we will be able to obtain an MRI or an electroencephalogram until tomorrow. More importantly, we do not have interventional radiology available to perform a lumbar puncture until 05/12/2022. I discussed this case with Infectious Diseases, Dr. Lyle, who recommended that she be transferred so that the lumbar puncture can be performed tomorrow morning. I discussed the risks and benefits of transfer with her and her son, who agreed that they would like to be transferred. I completed a doc-to-doc with Dr. Ezio Lackey at [facility], who has generously accepted her for transfer. On 05/10/2022, she was seen on rounds and deemed medically stable for transfer. She and her son were given the opportunity to ask questions and reported no further questions. Furthermore, all questions were answered to the best of my ability. Today, I personally spent 40 minutes on her case, of which greater than 50% of the time was spent in patient education, counseling, and coordination of care as described above. Vital Signs/Physical Exam: Temp Pulse Resp BP Pulse Ox 98.4 F 113 H 18 153/81 H 98 05/10/22 08:00 05/10/22 12:00 05/10/22 12:00 05/10/22 12:00 05/10/22 12:00 General: Alert, In no apparent distress, Oriented x2 HEENT: Atraumatic, PERRLA, Mucous membr. moist/pink, EOMI, Sclerae nonicteric Neck: Supple, JVD not distended Respiratory: Clear to auscultation bilaterally, Normal air movement Cardiovascular: No edema, Regular rate/rhythm, Normal S1 S2, No gallops, No rubs, No murmurs Gastrointestinal: Normal bowel sounds, Soft and benign, Non-distended, No tenderness, No rebound, No guarding Musculoskeletal: No clubbing Integumentary: No rashes Neurological: Other (Disoriented, moves all four extremities equally) Laboratory Data at Discharge: WBC 8.70 K/uL (4.3-10.9) 05/10/22 02:17 Hgb 15.4 g/dL (12.0-15.0) H 05/10/22 02:17 Hct 46.8 % (36.0-45.0) H 05/10/22 02:17 Plt Count 253 K/uL (152-406) 05/10/22 02:17 PT 11.0 SECONDS (9.5-12.5) 05/09/22 22:02 INR 1.00 05/09/22 22:02 APTT 40.6 SECONDS (24.3-36.9) H 05/09/22 22:02 Sodium 140 mmol/L (136-145) 05/10/22 02:17 Potassium 3.9 mmol/L (3.5-5.1) 05/10/22 02:17 BUN 15 mg/dL (7-18) 05/10/22 02:17 Creatinine 1.02 mg/dL (0.55-1.3) 05/10/22 02:17 Glucose 154 mg/dL (74-106) H 05/10/22 02:17 Phosphorus 2.5 mg/dL (2.5-4.9) 05/10/22 02:17 Magnesium 2.1 mg/dL (1.8-2.4) 05/10/22 02:17 Total Bilirubin 0.4 mg/dL (0.2-1.0) 05/09/22 22:02 AST 26 U/L (15-37) 05/09/22 22:02 ALT 26 U/L (12-78) 05/09/22 22:02 Alkaline Phosphatase 124 U/L (45-117) H 05/09/22 22:02 Triglycerides 133 mg/dL (<150) 05/10/22 02:17 Cholesterol 239 mg/dL (<200) H 05/10/22 02:17 HDL Cholesterol 40 mg/dL (40-60) 05/10/22 02:17 Cholesterol/HDL Ratio 5.98 05/10/22 02:17 Lipase 62 U/L (73-393) L 05/09/22 22:02 Home Medications: Alprazolam [Alprazolam ER] 1 mg PO BEDTIME 04/05/12 Cetirizine HCl [Zyrtec] 10 mg PO DAILY 6PM 04/05/12 Enalapril Maleate 10 mg PO DAILY 04/05/12 Lovastatin 20 mg PO DAILY 04/05/12 Omeprazole 40 mg PO DAILY 04/05/12 Pyridostigmine [place] [Mestinon*] 60 mg PO BID 04/05/12 estradioL [Estradiol] 0.5 mg PO DAILY 04/05/12 Iron 65 mg PO DAILY 6PM 02/01/16 Montelukast [Singulair*] 10 mg PO DAILY 6PM 02/01/16 Hydrocodone 10/APAP 325 [[place] 10/325*] 1 tab PO Q4HR PRN 09/12/18 Gabapentin 300 mg PO TID 05/10/22 Levothyroxine [Synthroid*] 125 mcg PO [id number] 05/10/22 Meloxicam [Mobic] 15 mg PO DAILY 05/10/22 Diet: NPO Activity: Fall precautions Followup: Unknown,U [Primary Care Provider] - Time spent managing pt's care (in minutes): 40
[2022-05-10] MEDS ORDERED: Ringers Lactate 1,000 ML IV ONE (18:33)
[2022-05-10] MEDS ORDERED: Ringers Lactate 500 ML IV SCH (19:00)
[2022-05-10] MEDS ORDERED: ATORVASTATIN 40 MG TAB PO SCH (21:00)
[2022-05-10] MEDS ORDERED: CEFTRIAXONE 2,000 MG in NA CHLORIDE 0.9% 50 ML IVPB SCH (21:00)
[2022-05-10] MEDS ORDERED: CEFTRIAXONE 2,000 MG in NA CHLORIDE 0.9% 50 ML IV SCH (21:00)
--- NOTE | 2022-05-10 21:42 | RAD REPORT ---
EXAM DESCRIPTION: MRI - Brain W/Wo Cont - 05/10/2022 9:04 pm CLINICAL HISTORY: CVA. Alteration of consciousness COMPARISON: head CT May 05, 2022 TECHNIQUE: Axial, sagittal, and coronal magnetic images of the brain were obtained. 16 cc MultiHance administered intravenously FINDINGS: Mild signal within periventricular white matter probably ischemic changes secondary to sma ll vessel disease The ventricles are normal in caliber. Diffusion-weighted/ ADC mapping sequences do not demonstrate evidence of an acute infarction. Dural enhancement bilaterally. An extra-axial fluid collection is not noted. Fluid within the sinuses/mastoids is not seen IMPRESSION: Dural enhancement may be inflammatory or infectious.
[2022-05-10] MEDS ORDERED: AMPICILLIN SODIUM 2 GM in NA CHLORIDE 0.9% 100 ML IVPB SCH (22:00)
--- NOTE | 2022-05-10 22:20 | RAD REPORT ---
EXAM DESCRIPTION: MRI - MRA Head Wo Cont - 05/10/2022 9:04 pm CLINICAL HISTORY: CVA COMPARISON: None. TECHNIQUE: Magnetic resonance angiogram was performed. 3D MIPS reconstruction performed FINDINGS: The anterior cerebral, middle cerebral, posterior cerebral, distal internal carotid and ba silar arteries do not demonstrate a significant stenosis. An aneurysm is not displayed. IMPRESSION: Unremarkable MRA brain.
--- NOTE | 2022-05-10 22:21 | RAD REPORT ---
EXAM DESCRIPTION: MRI - MRA Neck W/Wo Cont - 05/10/2022 9:04 pm CLINICAL HISTORY: CVA COMPARISON: None. TECHNIQUE: Magnetic resonance angiogram of the neck was performed. 19 cc MultiHance was administered intravenously. 3D MIPS reconstruction performed FINDINGS: Moderate plaque is present within distal left common carotid/proximal left carotid bulb. Mild plaque is present within the the right common and internal carotid arteries. Mild narrowing proximal external carotid arteries. The left vertebral artery is dominant. The distal right vertebral artery is poorly opacified. IMPRESSION: Moderate plaque within the distal left common carotid/proximal left carotid bulb. This r esults in an approximately 50% stenosis Poor opacification of the distal right vertebral artery which is small. 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 However, a chronic dissection can also have a similar appearance NASCET criteria used. Mild 0-49% stenosis Moderate 50-69% stenosis Severe 70-99% stenosis
[2022-05-11 00:34] VITALS: TEMP 97.9
[2022-05-11 00:41] VITALS: BP 156/102; O2SAT 98
[2022-05-11] MEDS ORDERED: VANCOMYCIN 1.25 GM in NA CHLORIDE 0.9% 250 ML IVPB SCH ×2 (05:00→17:00)
== END 2022-05-10 21:58 | disposition short-term general hospital (02) | DRG 871 ==
LOC: ER 20:34 → ERHOLD 05-10 01:34
PROVIDERS: ADMIT Internal Medicine; ATTEND Internal Medicine
DX: A41.9 Sepsis, unspecified organism (principal); G92.8 Other toxic encephalopathy; G00.9 Bacterial meningitis, unspecified; I10 Essential (primary) hypertension; E03.9 Hypothyroidism, unspecified; K21.9 Gastro-esophageal reflux disease without esophagitis; I48.0 Paroxysmal atrial fibrillation; E78.2 Mixed hyperlipidemia; Z60.2 Problems related to living alone; Z90.49 Acquired absence of other specified parts of digestive tract; Z90.710 Acquired absence of both cervix and uterus; Z79.890 Hormone replacement therapy; Z79.899 Other long term (current) drug therapy; Z96.652 Presence of left artificial knee joint; Z87.891 Personal history of nicotine dependence; Z20.822 Contact with and (suspected) exposure to COVID-19
CPT/HCPCS: 36415; 62270; 70450; 70544; 70549; 70553; 71045; 80048; 80061; 80076; 80307; 80320; 80329; 81003; 82140; 82805; 83605; 83690; 83735; 83880; 84100; 84145; 84439; 84443; 84484; 85025; 85610; 85652; 85730; 86140; 87040; 87086; 87088; 87811; 96361; 96365; 96375; 99285; A9577; J0133; J0290; J1650; J1720; J3370; J3475; J7030; J7040; J7050; J7120

== ENCOUNTER 2024-04-01 13:01 | Inpatient (IN) | payer OTHER, MEDICARE ==
[2024-04-01] MEDS ORDERED: CEFTRIAXONE 1000 MG/VIAL ONE (13:34)
[2024-04-01] MEDS ORDERED: LEVALBUTEROL 1.25 MG/3 ML NEB ONE (13:34)
[2024-04-01] MEDS ORDERED: AZITHROMYCIN 500 MG INJ IVPB ONE (13:34)
[2024-04-01] MEDS ORDERED: IPRATROPIUM BROM 0.5MG/2.5ML ONE (13:34)
[2024-04-01] MEDS ORDERED: NA CHLORIDE 0.9% 1,000 ML ONE (13:35)
[2024-04-01] MEDS ORDERED: FAMOTIDINE 20 MG/2 ML VIAL IV ONE (13:35)
[2024-04-01] MEDS ORDERED: NA CHLORIDE 0.9% 250 ML ONE (13:35)
[2024-04-01 13:50] LABS: Absolute Basophils 0.1 K/uL (0-0.5); Absolute Eosinophils 0.1 K/uL (0-0.5); Absolute Lymphocytes (CBC) 0.8 K/uL (0.7-4.9); Absolute Monocytes 1.2 K/uL (0.1-1.3); Absolute Neutrophil 9.8 K/uL (1.8-8.0); Basophils % 0.6 % (0-1.3); Eosinophils % 1.2 % (0-4.4); Hemoglobin 13.4 g/dL (12.0-15.0); Lymphocytes % 6.4 % (15.3-44.8); MCH 29.8 pg (27.0-35.0); MCHC 32.8 g/dL (32.0-36.0); MPV 8.5 fL (7.6-11.3); Monocytes % 9.7 % (3.3-12.3); Neutrophils % 82.1 % (41.7-73.7); Platelets 239 thou/uL (152-406); RBC Red Blood Cell Count 4.51 M/uL (3.86-4.86); Red Cell Distribution Width 12.5 % (12.1-15.2)
[2024-04-01 14:05] LABS: PT Prothrombin Time 11.5 SECONDS (9.4-12.5); Protime INR 1.03
[2024-04-01 14:10] LABS: Albumin 3.8 g/dL (3.4-5.0); Anion Gap 9.1 mEq/L (5.0-15.0); Bilirubin Direct 0.2 mg/dL (0-0.2); Bilirubin Indirect, Calculated 0.4 mg/dL (0.2-0.8); Bilirubin Total 0.6 mg/dL (0.2-1.0); Globulin 3.7 g/dL (2.3-3.5); Protein, Total 7.5 g/dL (6.4-8.2); Troponin High Sensitivity 4.8 pg/mL (<58.9)
[2024-04-01 14:14] LABS: Magnesium 1.8 mg/dL (1.6-2.4); Potassium 4.1 mEq/L (3.5-5.1)
[2024-04-01] MEDS ORDERED: ACETAMINOPHEN 500 MG TAB ONE (14:59)
--- NOTE | 2024-04-01 15:36 | ER ---
Nurse's Notes [facility] Name: Era Agustin Age: 83 yrs Sex: Female : 1940 Arrival Date: 04/01/2024 Time: 13:01 Bed 3 Private MD: Diagnosis: SARS-associated coronavirus as the cause of diseases classified elsewhere;Weakness;Fever, unspecified;Hypoxemia;Dyspnea, unspecified;Pneumonia due to other specified bacteria;Pneumonia due to SARS-associated coronavirus Presentation: 04/01 13:15 Chief complaint: Patient states: c/o fever, body aches, chills, congestion, cough- went me1 to Dr sapp and was sent to ER for low o2 and positive covid test. Coronavirus screen: Vaccine status: Patient reports receiving the 2nd dose of the covid vaccine. Ebola Screen: No symptoms or risks identified at this time. Initial Sepsis Screen: Does the patient meet any 2 criteria? No. Patient's initial sepsis screen is negative. Risk Assessment: Do you want to hurt yourself or someone else? Patient reports no desire to harm self or others. Onset of symptoms was March 31, 2024. 13:15 Method Of Arrival: Wheelchair me1 13:15 Acuity: CLARENCE 3 me1 17:42 Initial Sepsis Screen: Does the patient have a suspected source of infection? No. ld1 Patient's initial sepsis screen is negative. Historical: - Allergies: 13:24 No Known Drug Allergies; me1 - PMHx: 13:24 Back pain; Hyperlipidemia; Hypertension; Hypothyroidism; shingles (Hypothyroidism); me1 - PSHx: 13:24 Total abdominal hysterectomy; Tonsillectomy; Appendectomy; Thyroidectomy; lap band; me1 - Immunization history:: Adult Immunizations up to date. - Infectious Disease History:: Denies. - Social history:: Smoking status: Patient/guardian denies using tobacco, but has a distant history of tobacco abuse. - Family history:: not pertinent. Screenin:57 [facility] ED Fall Risk Assessment (Adult) History of falling in the last 3 months, ld1 including since admission No falls in past 3 months (0 pts) Confusion or Disorientation No (0 pts) Intoxicated or Sedated No (0 pts) Impaired Gait No (0 pts) Mobility Assist Device Used No (0 pt) Altered Elimination No (0 pt) Score/Fall Risk Level 0 - 2 = Low Risk Oriented to surroundings, Maintained a safe environment, Educated pt \T\ family on fall prevention, incl call for assistance when getting out of bed, Assessed \T\ reinforced patient's understanding of fall precautions, Provided non-skid footwear, Hourly rounding (assess needs \T\ fall precautionary measures) done, Used ambulatory aids as needed (educated on \T\ assisted with), Used gait belt as appropriate. Abuse screen: Denies threats or abuse. Denies injuries from another. Nutritional screening: No deficits noted. Tuberculosis screening: No symptoms or risk factors identified. Assessment: 13:57 General: Appears in no apparent distress. comfortable, Behavior is calm, cooperative, ld1 appropriate for age. Pain: Denies pain. Neuro: Level of Consciousness is awake, alert, obeys commands, Oriented to person, place, time, situation, Appropriate for age. Cardiovascular: Capillary refill < 3 seconds Patient's skin is warm and dry. Respiratory: Airway is patent Respiratory effort is even, unlabored. Respiratory: Reports shortness of breath at rest on exertion. GI: Abdomen is round non-distended. : No signs and/or symptoms were reported regarding the genitourinary system. EENT: No signs and/or symptoms were reported regarding the EENT system. Derm: No signs and/or symptoms reported regarding the dermatologic system. Musculoskeletal: No signs and/or symptoms reported regarding the musculoskeletal system. Vital Signs: 13:15 BP 142 / 85; Pulse 89; Resp 20; Temp 99.4; Pulse Ox 100% on R/A; Weight 78.02 kg; me1 Height 5 ft. 3 in. ; Pain 4/10; 13:57 BP 156 / 76; Pulse 105; Resp 25; Pulse Ox 96% on Nebulizer Mask; ld1 15:00 BP 161 / 79; Pulse 102; Resp 20; Pulse Ox 91% on R/A; ld1 16:15 BP 158 / 77; Pulse 106; Resp 20; Pulse Ox 92% on R/A; ld1 17:41 BP 149 / 72; Pulse 99; Resp 19; Pulse Ox 93% on R/A; ld1 13:15 Body Mass Index 30.47 (78.02 kg, 160.02 cm) [facility] 13:15 Pain Scale: Adult me1 ED Course: 13:07 Patient arrived in ED. im 13:13 Scott Stephenson MD is Attending Physician. lubna 13:16 Dawn Jeffers, RONDA is Primary Nurse. ld1 13:24 Triage completed. me1 13:24 Arm band placed on Patient placed in an exam room. me1 13:40 Initial lab(s) drawn, by me, sent to lab. First set of blood cultures drawn by me. bc6 13:44 Lactate w/ 2H reflex if indic. Sent. bc6 13:44 Blood Culture Adult (2) Sent. bc6 13:45 Basic Metabolic Panel Sent. bc6 13:45 CBC with Diff Sent. bc6 13:45 LFT's Sent. bc6 13:45 Magnesium Sent. bc6 13:45 NT PRO-BNP Sent. bc6 13:45 PT-INR Sent. bc6 13:45 Troponin HS Sent. bc6 13:45 Inserted saline lock: 22 gauge in right antecubital area, using aseptic technique. bc6 Blood collected. 13:57 Patient has correct armband on for positive identification. Placed in gown. Bed in low ld1 position. Call light in reach. Side rails up X2. residential monitor on. Pulse ox on. NIBP on. Door closed. Noise minimized. Warm blanket given. 13:57 No provider procedures requiring assistance completed. ld1 14:00 Second set of blood cultures drawn by me. bc6 14:06 XRAY Chest (1 view) In Process Unspecified. EDMS 14:38 CT Chest For PE Angio In Process Unspecified. EDMS 15:35 Simi Ching MD is Hospitalizing Provider. lubna 17:42 Patient admitted, IV remains in place. ld1 Administered Medications: 13:55 Drug: Levalbuterol Inhalation 3.75 mg Inhalation once Route: Inhalation; ld1 13:55 Drug: Ipratropium Inhalation Aerosol 0.5 mg Inhalation once Route: Inhalation; ld1 13:55 Drug: Famotidine IVP 20 mg IVP once; dilute with 10 mL 0.9% NaCl; give over 2 minutes ld1 Route: IVP; Site: right antecubital; 13:55 Drug: Zithromax IVPB 500 mg IVPB once over 1 hrs; mix in 250 mL NS Route: IVPB; Infused ld1 Over: 1 hrs; Site: right antecubital; 13:55 Drug: Rocephin IV 1 grams IV at per protocol once; Given slow IV push per pharmacy ld1 instructions Route: IV; Rate: per protocol; Site: right antecubital; 13:55 Drug: NS 0.9% IV 1000 ml IV at 1 bolus Per protocol; 1000 mL bolus Route: IV; Rate: 1 ld1 bolus; Site: right antecubital; 15:15 Drug: Acetaminophen PO 1000 mg PO once Route: PO; ld1 17:41 Not Given (Other Intervention Used): Paxlovid Dose Pack 300 mg (150 mg x 2)-100 mg 3 ld1 tabs PO once 17:41 Not Given (Other Intervention Used): mg Sub-Q once ld1 Medication: 17:43 VIS not applicable for this client. ld1 Outcome: 15:36 Decision to Hospitalize by Provider. lubna 17:42 Admitted to Med/surg accompanied by tech, via wheelchair, ld1 17:42 Condition: stable 17:42 Discharge instructions given to patient, Instructed on discharge instructions, follow up and referral plans. the need for admit, Demonstrated understanding of instructions, 17:43 Patient left the ED. ld1 Signatures: Dispatcher [employer] Scott Rushing MD MD cha Sims, Lauren, RN RN ld1 Evangelina Houston 6 Lidia Rand Michelle, RN RN me1
--- NOTE | 2024-04-01 15:37 | EDPHYS ---
Physician Documentation [facility] Name: Era Agustin Age: 83 yrs Sex: Female : 1940 Arrival Date: 04/01/2024 Time: 13:01 Bed 3 Private MD: ED Physician Scott Stephenson HPI: 04/01 15:24 This 83 yrs old Female presents to ER via Wheelchair with complaints of Low lubna o2, COVID positive. 15:24 The patient has shortness of breath with light activity. Onset: The symptoms/episode lubna began/occurred 2 day(s) ago. Duration: The symptoms are continuous, and are steadily getting worse. The patient's shortness of breath is aggravated by coughing, is alleviated by application of supplemental oxygen. The patient or guardian reports cough, difficulty breathing, flu symptoms, arthralgias, low-grade fever, myalgias. Modifying factors: The symptoms are alleviated by nothing. the symptoms are aggravated by nothing. covid dx today, 2 days of symptoms. Severity of symptoms: At their worst the symptoms were moderate just prior to arrival, in the emergency department the symptoms have improved moderately. The patient has not experienced similar symptoms in the past. Historical: - Allergies: 13:24 No Known Drug Allergies; me1 - PMHx: 13:24 Back pain; Hyperlipidemia; Hypertension; Hypothyroidism; shingles (Hypothyroidism); me1 - PSHx: 13:24 Total abdominal hysterectomy; Tonsillectomy; Appendectomy; Thyroidectomy; lap band; me1 - Immunization history:: Adult Immunizations up to date. - Infectious Disease History:: Denies. - Social history:: Smoking status: Patient/guardian denies using tobacco, but has a distant history of tobacco abuse. - Family history:: not pertinent. ROS: 15:26 Constitutional: Negative for fever, chills, and weight loss, Eyes: Negative for injury, lubna pain, redness, and discharge, ENT: Negative for injury, pain, and discharge, Neck: Negative for injury, pain, and swelling, Abdomen/GI: Negative for abdominal pain, nausea, vomiting, diarrhea, and constipation, Back: Negative for injury and pain, : Negative for injury, bleeding, discharge, and swelling, MS/Extremity: Negative for injury and deformity, Skin: Negative for injury, rash, and discoloration, Neuro: Negative for headache, weakness, numbness, tingling, and seizure, Psych: Negative for depression, anxiety, suicide ideation, homicidal ideation, and hallucinations, Allergy/Immunology: Negative for hives, rash, and allergies, Endocrine: Negative for neck swelling, polydipsia, polyuria, polyphagia, and marked weight changes, Hematologic/Lymphatic: Negative for swollen nodes, abnormal bleeding, and unusual bruising, 15:26 Cardiovascular: Positive for orthopnea, palpitations, 15:26 Respiratory: Positive for cough, "sounds productive", dyspnea on exertion, shortness of breath, on exertion. Exam: 15:26 Constitutional: This is a well developed, well nourished patient who is awake, alert, lubna and in no acute distress. Head/Face: Normocephalic, atraumatic. Eyes: Pupils equal round and reactive to light, extra-ocular motions intact. Lids and lashes normal. Conjunctiva and sclera are non-icteric and not injected. Cornea within normal limits. Periorbital areas with no swelling, redness, or edema. ENT: Nares patent. No nasal discharge, no septal abnormalities noted. Tympanic membranes are normal and external auditory canals are clear. Oropharynx with no redness, swelling, or masses, exudates, or evidence of obstruction, uvula midline. Mucous membranes moist. Neck: Trachea midline, no thyromegaly or masses palpated, and no cervical lymphadenopathy. Supple, full range of motion without nuchal rigidity, or vertebral point tenderness. No Meningismus. Chest/axilla: Normal chest wall appearance and motion. Nontender with no deformity. No lesions are appreciated. Abdomen/GI: Soft, non-tender, with normal bowel sounds. No distension or tympany. No guarding or rebound. No evidence of tenderness throughout. Back: No spinal tenderness. No costovertebral tenderness. Full range of motion. Female : Normal external genitalia. Skin: Warm, dry with normal turgor. Normal color with no rashes, no lesions, and no evidence of cellulitis. MS/ Extremity: Pulses equal, no cyanosis. Neurovascular intact. Full, normal range of motion. Neuro: Awake and alert, GCS 15, oriented to person, place, time, and situation. Cranial nerves II-XII grossly intact. Motor strength 5/5 in all extremities. Sensory grossly intact. Cerebellar exam normal. Normal gait. Psych: Awake, alert, with orientation to person, place and time. Behavior, mood, and affect are within normal limits. 15:26 Cardiovascular: Rate: tachycardic, actual rate is 105 bpm, Rhythm: regular, Pulses: Pulses are 4+ in bilateral radial, brachial, femoral, popliteal, posterior tibial and and dorsalis pedis arteries.. Heart sounds: normal, Edema: is not appreciated, JVD: is not appreciated, 15:26 ECG was reviewed by the Attending Physician. 15:26 Musculoskeletal/extremity: ROM: intact in all extremities, Circulation is intact in all extremities. Sensation intact. Compartment Syndrome exam of affected extremity: is normal. Weight bearing: able to fully bear weight, DVT Exam: No signs of deep vein thrombosis. no pain, no swelling, no tenderness, negative Homans' sign noted on exam, no appreciated bluish discoloration, no erythema, no increased warmth, Vital Signs: 13:15 BP 142 / 85; Pulse 89; Resp 20; Temp 99.4; Pulse Ox 100% on R/A; Weight 78.02 kg; me1 Height 5 ft. 3 in. ; Pain 4/10; 13:57 BP 156 / 76; Pulse 105; Resp 25; Pulse Ox 96% on Nebulizer Mask; ld1 15:00 BP 161 / 79; Pulse 102; Resp 20; Pulse Ox 91% on R/A; ld1 16:15 BP 158 / 77; Pulse 106; Resp 20; Pulse Ox 92% on R/A; ld1 17:41 BP 149 / 72; Pulse 99; Resp 19; Pulse Ox 93% on R/A; ld1 13:15 Body Mass Index 30.47 (78.02 kg, 160.02 cm) me1 13:15 Pain Scale: Adult me1 MDM: 13:13 Patient medically screened. lubna 15:29 Differential diagnosis: Anemia Anxiety Reaction asthma, Bronchitis CHF exacerbation, lubna Chronic Obstructive Pulmonary Disease obstructed airway, tracheal injury, bronchitis, flu, URI. Antibiotic administration: Rocephin and Zithromax given. Differential Diagnosis altered mental status, sepsis, flu. Immunization status: Pneumococcal vaccine: within last 5 years. Influenza vaccine: within last 5 years. Data reviewed: vital signs, nurses notes, EMS record, lab test result(s), EKG, radiologic studies, CT scan, plain films. Consideration of Admission/Observation Patient was admitted/placed on observation. Escalation of care including admission/observation considered. I considered the following discharge prescriptions or medication management in the emergency department Medications were administered in the Emergency Department. See MAR. Independent interpretation of the following test(s) in the Emergency Department EKG: See my EKG interpretation above. Test considered but Not performed: MRI: no mri chest. Historians other than the Patient: EMS: ems well informed. Care significantly affected by the following chronic conditions: Hypertension, Obesity, hyperlipemia, shingles, back pain. Counseling: I had a detailed discussion with the patient and/or guardian regarding the historical points, exam findings, and any diagnostic results supporting the discharge/admit diagnosis, lab results, radiology results, the need for further work-up and treatment in the hospital. 04/01 13:15 Order name: Basic Metabolic Panel; Complete Time: 14:29 04/01 13:15 Order name: CBC with Diff; Complete Time: 14:29 04/01 13:15 Order name: LFT's; Complete Time: 14:29 04/01 13:15 Order name: Magnesium; Complete Time: 14:29 04/01 13:15 Order name: NT PRO-BNP; Complete Time: 14:29 04/01 13:15 Order name: PT-INR; Complete Time: 14:29 04/01 13:15 Order name: Troponin HS; Complete Time: 14:29 04/01 13:15 Order name: Blood Culture Adult (2) 04/01 13:15 Order name: Lactate w/ 2H reflex if indic.; Complete Time: 14:29 04/01 13:15 Order name: XRAY Chest (1 view) 04/01 13:15 Order name: CT Chest For PE Angio 04/01 13:15 Order name: EKG; Complete Time: 13:16 04/01 13:15 Order name: Cardiac monitoring; Complete Time: 13:55 04/01 13:15 Order name: EKG - Nurse/Tech; Complete Time: 13:55 04/01 13:15 Order name: IV Saline Lock; Complete Time: 13:45 04/01 13:15 Order name: Labs collected and sent; Complete Time: 13:45 04/01 13:15 Order name: O2 Per Protocol; Complete Time: 13:16 lubna 04/01 13:15 Order name: O2 Sat Monitoring; Complete Time: : lubna EC: Rate is 97 beats/min. Rhythm is regular. QRS [place] is Normal. [place] interval is normal. QRS lubna interval is normal. QT interval is normal. No Q waves. T waves are Normal. No ST changes noted. Clinical impression: Abnormal EKG without significant change and No evidence of ischemia. Interpreted by me. Reviewed by me. Administered Medications: 13:55 Drug: Levalbuterol Inhalation 3.75 mg Inhalation once Route: Inhalation; ld1 13:55 Drug: Ipratropium Inhalation Aerosol 0.5 mg Inhalation once Route: Inhalation; ld1 13:55 Drug: Famotidine IVP 20 mg IVP once; dilute with 10 mL 0.9% NaCl; give over 2 minutes ld1 Route: IVP; Site: right antecubital; 13:55 Drug: Zithromax IVPB 500 mg IVPB once over 1 hrs; mix in 250 mL NS Route: IVPB; Infused ld1 Over: 1 hrs; Site: right antecubital; 13:55 Drug: Rocephin IV 1 grams IV at per protocol once; Given slow IV push per pharmacy ld1 instructions Route: IV; Rate: per protocol; Site: right antecubital; 13:55 Drug: NS 0.9% IV 1000 ml IV at 1 bolus Per protocol; 1000 mL bolus Route: IV; Rate: 1 ld1 bolus; Site: right antecubital; 15:15 Drug: Acetaminophen PO 1000 mg PO once Route: PO; ld1 17:41 Not Given (Other Intervention Used): Paxlovid Dose Pack 300 mg (150 mg x 2)-100 mg 3 ld1 tabs PO once 17:41 Not Given (Other Intervention Used): [id number] mg Sub-Q once ld1 Disposition Summary: 04/01/24 15:36 Hospitalization Ordered Notes: Hospitalization Status: Inpatient Admission lubna Provider: Simi Ching cha Location: Telemetry/MedSurg (Inpatient) lubna Condition: Fair lubna Problem: new lubna Symptoms: have improved lubna Bed/Room Type: Standard lubna Room Assignment: 222(04/01/24 16:28) bd Diagnosis - SARS-associated coronavirus as the cause of diseases classified elsewhere lubna - Weakness lubna - Fever, unspecified lubna - Hypoxemia lubna - Dyspnea, unspecified lubna - Pneumonia due to other specified bacteria lubna - Pneumonia due to SARS-associated coronavirus lubna Forms: - Medication Reconciliation Form lubna - SBAR form lubna - Leadership Thank You Letter lubna Signatures: Dispatcher [employer] EDAna Arrieta Corey, MD MD cha Sims, Dawn, RN RN ld1 Cherry Loja RN RN me1 Corrections: (The following items were deleted from the chart) 13:16 13:16 BASIC METABOLIC PANEL+C.LAB.BRZ ordered. EDMS EDMS 13:16 13:16 CBC+H.LAB.BRZ ordered. EDMS EDMS 13:16 13:16 HEPATIC FUNCTION+C.LAB.BRZ ordered. EDMS EDMS 13:16 13:16 MAGNESIUM+C.LAB.BRZ ordered. EDMS EDMS 13:16 13:16 PROBNP+C.LAB.BRZ ordered. EDMS EDMS 13:16 13:16 PROTIME (+INR)+COAG.LAB.BRZ ordered. EDMS EDMS 13:16 13:16 Troponin High Sensitivity+C.LAB.BRZ ordered. EDMS EDMS 13:16 13:16 BLOOD CULTURE*+BA.LAB.BRZ ordered. EDMS EDMS 13:16 13:16 LACTATE+C.LAB.BRZ ordered. EDMS EDMS 16:28 15:36 lubna bd
--- NOTE | 2024-04-01 16:02 | RAD REPORT ---
EXAM DESCRIPTION: [place] Single View04/01/2024 2:04 pm CLINICAL HISTORY: Cough;Dyspnea COMPARISON: Chest Single View dated 05/09/2022; Chest Single View dated 09/28/2021; Chest Single View dated 09/13/2018; Chest Pa And Lat (2 Views) dated 09/13/2018 TECHNIQUE: Portable AP view of the chest. FINDINGS: The lungs are clear. No pneumothorax or effusion. The cardiomediastinal contours are unre markable. IMPRESSION: No acute cardiopulmonary process.
--- NOTE | 2024-04-01 16:19 | P.HP ---
Certification for Inpatient Patient admitted to: Inpatient With expected LOS: <2 Midnights Practitioner: I am a practitioner with admitting privileges, knowledge of patient current condition, hospital course, and medical plan of care. Services: Services provided to patient in accordance with Admission requirements found in Title 42 Section 412.3 of the Code of Federal Regulations Patient History Date of Service: 04/01/24 Reason for admission: COVID History of Present Illness: 83 yrs old Female with a past medical history Back pain; atrial fibrillation, hyperlipidemia; Hypertension; Hypothyroidism; shingles (Hypothyroidism); presents to the emergency room with complaints of shortness of breath that started 2 days ago. She reports generalized weakness, productive cough. She reports flulike symptoms, low-grade fever. She denies history of lung disease, no reported use of tobacco, no reported chest pain, abdominal pain, diarrhea, nausea vomiting. ER evaluation BP 142 / 85; Pulse 89; Resp 20; Temp 99.4; Pulse Ox 100% on R/A;, EKG s 97 beats/min. Rhythm is regular. QRS [place] is Normal. [place] interval is normal. QRS interval is normal. QT interval is normal. No Q waves. T waves are Normal. No ST changes noted. Clinical impression: Abnormal EKG without significant change and No evidence of ischemia. WBCs 11.90, acute kidney injury, creatinine 1.28, estimated GFR 42, unknown baseline lactate normal, CTA of the chest MPRESSION: No evidence of acute central pulmonary emboli.Nodular opacities in the right middle lobe and peripheral right lower lobe, and to lesser extent the left lingula nonspecific, but may represent an infectious or inflammatory process. Plan to admit for SARS-associated coronavirus as the cause of diseases classified elsewhere, Weakness, Fever, unspecified, Hypoxemia, Dyspnea, unspecified, Pneumonia due to other specified bacteria, Pneumonia due to SARS-associated coronavirus Allergies No Known Drug Allergies Allergy (Verified 02/01/16 11:27) Unknown Home Medications: Alprazolam [Alprazolam ER] 1 mg PO BEDTIME 04/05/12 Cetirizine HCl [Zyrtec] 10 mg PO DAILY 6PM 04/05/12 Enalapril Maleate 10 mg PO DAILY 04/05/12 Lovastatin 20 mg PO DAILY 04/05/12 Omeprazole 40 mg PO DAILY 04/05/12 estradioL [Estradiol] 0.5 mg PO DAILY 04/05/12 pyRIDostigmine bromide [Mestinon*] 60 mg PO TID 04/05/12 Iron 65 mg PO DAILY 6PM 02/01/16 Montelukast [Singulair*] 10 mg PO DAILY 6PM 02/01/16 Hydrocodone 10/APAP 325 [[place] 10/325*] 1 tab PO Q4HR PRN 09/12/18 Aspirin Chewable [Aspirin Chewable*] 81 mg PO DAILY tab.chew 05/10/22 Atorvastatin Calcium [Lipitor] 40 mg PO BEDTIME tab 05/10/22 Gabapentin 300 mg PO TID 05/10/22 Levothyroxine [Synthroid*] 125 mcg PO [id number] 05/10/22 Meloxicam [Mobic] 15 mg PO DAILY 05/10/22 - Past Medical/Surgical History Diabetic: No -: Hypertension -: GERD -: Anxiety -: Appendectomy 1968 -: Hysterectomy 1970 -: Thyroidectomy 1974 -: Back Surgery 1979 -: Bilateral Cataract Surgery 2007 -: Lapband 2014 -: Septoplasty 2015 -: Left Knee Replacement 2011 Psychosocial/ Personal History: Patient lives at home alone. - Social History Alcohol use: Yes CD- Drugs: No Caffeine use: Yes Review of Systems PER HPI Physical Examination - Physical Exam General: Alert, In no apparent distress, Oriented x3 HEENT: Atraumatic, Normocephalic Neck: Supple, 2+ carotid pulse no bruit Respiratory: Normal air movement, Other (productive cough) Cardiovascular: Normal pulses, Regular rate/rhythm Capillary refill: <2 Seconds Gastrointestinal: Normal bowel sounds, Soft and benign Musculoskeletal: No swelling, No contractures Integumentary: No breakdown, Other (geneneralized weakness) Neurological: Normal speech, Normal strength at 5/5 x4 extr, Cranial nerves 3-12 intact - Studies Laboratory Data (last 24 hrs) 04/01/24 04/01/24 04/01/24 13:40 13:40 13:40 WBC 11.90 H Hgb 13.4 Hct 41.0 Plt Count 239 PT 11.5 INR 1.03 Sodium 136 Potassium 4.1 BUN 16 Creatinine 1.28 H Glucose 112 H Magnesium 1.8 Total Bilirubin 0.6 AST 20 ALT 17 Alkaline Phosphatase 78 Assessment and Plan - Plan Assessment plan Acute hypoxic respiratory failure secondary to pneumonia/COVID Weakness Fever, unspecified Hypoxemia Dyspnea, unspecified Pneumonia due to other specified bacteria Pneumonia due to SARS-associated coronavirus IV antibiotics, nebs, Paxlovid Trend WBC presents to the emergency room with complaints of shortness of breath that started 2 days ago. She reports generalized weakness, productive cough. She reports flulike symptoms, low-grade fever. ER evaluation BP 142 / 85; Pulse 89; Resp 20; Temp 99.4; Pulse Ox 100% on R/A;, EKG s 97 beats/min. Rhythm is regular. QRS [place] is Normal. [place] interval is normal. QRS interval is normal. QT interval is normal. No Q waves. T waves are Normal. No ST changes noted. Clinical impression: Abnormal EKG without significant change and No evidence of ischemia. WBCs 11.90, CTA of the chest MPRESSION: No evidence of acute central pulmonary emboli.Nodular opacities in the right middle lobe and peripheral right lower lobe, and to lesser extent the left lingula nonspecific, but may represent an infectious or inflammatory process. acute kidney injury, creatinine unknown baseline Gentle IV fluids unknown baseline lactate normal, 1.28, estimated GFR 42 Chronic back pain History atrial fibrillation hyperlipidemia Hypertension Hypothyroidism shingle (Hypothyroidism) Resume appropriate home meds Fall precautions Full code DVT Lovenox Diet cardiac Disposition Home independent prior Discharge Plan: Home - Advance Directives Does patient have a Living Will: No Does patient have a Durable POA for Healthcare: No - Code Status/Comfort Care Code Status: Full Code Critical Care: No Time Spent Managing Pts Care (In Minutes): 55
--- NOTE | 2024-04-01 16:24 | RAD REPORT ---
EXAM DESCRIPTION: CT - Chest For Pe Angio - 04/01/2024 2:37 pm CLINICAL HISTORY: DYSPNEA COMPARISON: Thorax W/ Con dated 09/14/2018; Chest Single View dated 04/01/2024 TECHNIQUE: Thin axial CT images of the chest were obtained following administration of 100 mL Isovue 370 IV contrast. Multiplanar reconstructions, and maximum intensity projection reconstructions were generated and reviewed. Exam utilizes a protocol for optimal evaluation of pulmonary arterial tree. All CT scans are performed using dose optimization technique as appropriate and may include automated exposure control or mA/KV adjustment according to patient size. FINDINGS: Pulmonary arteries are normal. No emboli or other suspicious finding. No acute or signific ant aorta findings. Confluent nodular opacities in the anterior right middle lobe. Other scattered perihilar nodules in t he peripheral right middle lobe, up to 5 mm (see axial image 64/130), and in the peripheral right low er lobe (see axial image 50/130). Similar, smaller nodules are present in the left lingula. These are new since the prior exam. No pleural thickening or pleural effusion. No pneumothorax. No abnormal mediastinal or hilar masses or lymphadenopathy seen. No chest wall mass or abnormal axill iary lymphadenopathy. IMPRESSION: No evidence of acute central pulmonary emboli. Nodular opacities in the right middle lobe and peripheral right lower lobe, and to lesser extent the left lingula nonspecific, but may represent an infectious or inflammatory process.
[2024-04-01] MEDS ORDERED: ONDANSETRON 4 MG/2 ML VIAL IV PRN (18:45)
[2024-04-01] MEDS ORDERED: LEVALBUTEROL 1.25 MG/3 ML NEB NEB PRN (18:45)
[2024-04-01] MEDS: NA CHLORIDE 0.9% 1,000 ML IV SCH ×2 (20:26→23:04)
[2024-04-01] MEDS ORDERED: NIRMATRELVIR/RITONAVIR TABLET PO SCH (21:00)
[2024-04-01] MEDS ORDERED: NIRMATRELVIR/RITONAVIR TABLET PO ONE (22:30)
[2024-04-01] MEDS: GABAPENTIN 300 MG CAP PO SCH (23:04)
[2024-04-02] MEDS: ACETAMINOPHEN 500 MG TAB PO PRN (05:04)
[2024-04-02] MEDS: LEVOTHYROXINE SOD 0.125 MG TAB PO SCH (05:04)
[2024-04-02 07:38] LABS: AST/SGOT 15 U/L (15-37); Albumin 3.4 g/dL (3.4-5.0); Alkaline Phosphatase 69 U/L (45-117); Anion Gap 11.5 mEq/L (5.0-15.0); BUN Blood Urea Nitrogen 17 mg/dL (7-18); Bicarbonate 27 mEq/L (21-32); Bilirubin Total 0.4 mg/dL (0.2-1.0); Globulin 3.5 g/dL (2.3-3.5); Glomerular Filtration Rate 47 ml/min (=/>90); Glucose Level 141 mg/dL (74-106); Magnesium 2.2 mg/dL (1.6-2.4); Potassium 3.5 mEq/L (3.5-5.1); Protein, Total 6.9 g/dL (6.4-8.2); Sodium Level 139 mEq/L (136-145)
[2024-04-02 07:39] LABS: ALT/SGPT < 14 U/L (13-56)
--- NOTE | 2024-04-02 08:44 | P.PN ---
Date of Service: 04/02/24 Subjective 02 2L 95% Review of Systems PER HPI Physical Examination - Physical Exam General: Alert, In no apparent distress, Oriented x3 HEENT: Atraumatic, Normocephalic Neck: Supple, 2+ carotid pulse no bruit Respiratory: Normal air movement, unlabored, Other (mild intermittent, productive cough) Cardiovascular: Normal pulses, Regular rate/rhythm Capillary refill: <2 Seconds Gastrointestinal: Normal bowel sounds, Soft and benign Musculoskeletal: No swelling, No contractures Integumentary: No breakdown, Other (geneneralized weakness) Neurological: Normal speech, Normal strength at 5/5 x4 extr, Cranial nerves 3-12 intact thank you. Patient unfortunately still dizzy please remain on Assessment and Plan - Plan Assessment plan Acute hypoxic respiratory failure secondary to pneumonia/COVID Weakness Fever, unspecified Hypoxemia Dyspnea, unspecified Pneumonia due to other specified bacteria Pneumonia due to SARS-associated coronavirus IV antibiotics, nebs, Paxlovid Trend WBC presents to the emergency room with complaints of shortness of breath that started 2 days ago. She reports generalized weakness, productive cough. She reports flulike symptoms, low-grade fever. ER evaluation BP 142 / 85; Pulse 89; Resp 20; Temp 99.4; Pulse Ox 100% on R/A;, EKG s 97 beats/min. Rhythm is regular. QRS [place] is Normal. [place] interval is normal. QRS interval is normal. QT interval is normal. No Q waves. T waves are Normal. No ST changes noted. Clinical impression: Abnormal EKG without significant change and No evidence of ischemia. WBCs 11.90, CTA of the chest MPRESSION: No evidence of acute central pulmonary emboli.Nodular opacities in the right middle lobe and peripheral right lower lobe, and to lesser extent the left lingula nonspecific, but may represent an infectious or inflammatory process. acute kidney injury, creatinine unknown baseline Gentle IV fluids unknown baseline lactate normal, 1.28, estimated GFR 42 Chronic back pain History atrial fibrillation hyperlipidemia Hypertension Hypothyroidism shingle (Hypothyroidism) Resume appropriate home meds Fall precautions Full code DVT Lovenox Diet cardiac Disposition Home independent prior Discharge Plan: Home - Advance Directives Does patient have a Living Will: No Does patient have a Durable POA for Healthcare: No - Code Status/Comfort Care Code Status: Full Code Critical Care: No Time Spent Managing Pts Care (In Minutes): 35
[2024-04-02] MEDS ORDERED: HOME MED 1 EA UNK (Lovastatin [Lovastatin] 20 MG Tablet) PO SCH (09:00)
[2024-04-02 09:16] LABS: INFLUENZA A NAA NEGATIVE (NEGATIVE); RESPIRATORY SYNCYTIAL VIR NAA NEGATIVE (NEGATIVE)
[2024-04-02] MEDS: ENALAPRIL 10 MG TAB PO SCH (09:21)
[2024-04-02] MEDS: CEFEPIME 2 GM in NA CHLORIDE 0.9% 100 ML IV SCH ×2 (09:22→21:36)
[2024-04-02] MEDS: PANTOPRAZOLE 40MG TABLET PO SCH (09:22)
[2024-04-02 10:57] LABS: SARS-COV-2 RT PCR POSITIVE (NEGATIVE)
[2024-04-02] MEDS: NIRMATRELVIR/RITONAVIR TABLET PO SCH (15:19)
[2024-04-02] MEDS ORDERED: ALPRAZOLAM 0.5 MG TABLET PO PRN (21:00)
--- NOTE | 2024-04-03 06:56 | P.DS ---
Admission Date: 04/01/24 Discharge Date: 04/04/24 Disposition: ROUTINE DISCHARGE Discharge Condition: GOOD Reason for Admission: COVID Brief History of Present Illness: 83 yrs old Female with a past medical history Back pain; atrial fibrillation, hyperlipidemia; Hypertension; Hypothyroidism; shingles (Hypothyroidism); presents to the emergency room with complaints of shortness of breath that started 2 days ago. She reports generalized weakness, productive cough. She reports flulike symptoms, low-grade fever. She denies history of lung disease, no reported use of tobacco, no reported chest pain, abdominal pain, diarrhea, nausea vomiting. ER evaluation BP 142 / 85; Pulse 89; Resp 20; Temp 99.4; Pulse Ox 100% on R/A;, EKG s 97 beats/min. Rhythm is regular. QRS [place] is Normal. [place] interval is normal. QRS interval is normal. QT interval is normal. No Q waves. T waves are Normal. No ST changes noted. Clinical impression: Abnormal EKG without significant change and No evidence of ischemia. WBCs 11.90, acute kidney injury, creatinine 1.28, estimated GFR 42, unknown baseline lactate normal, CTA of the chest MPRESSION: No evidence of acute central pulmonary emboli.Nodular opacities in the right middle lobe and peripheral right lower lobe, and to lesser extent the left lingula nonspecific, but may represent an infectious or inflammatory process. Plan to admit for SARS-associated coronavirus as the cause of diseases classified elsewhere, Weakness, Fever, unspecified, Hypoxemia, Dyspnea, unspecified, Pneumonia due to other specified bacteria, Pneumonia due to SARS-associated coronavirus - Physical Exam General: Alert, In no apparent distress, Oriented x3 HEENT: Atraumatic, Normocephalic Neck: Supple, 2+ carotid pulse no bruit Respiratory: Normal air movement, Other (productive cough) Cardiovascular: Normal pulses, Regular rate/rhythm Capillary refill: <2 Seconds Gastrointestinal: Normal bowel sounds, Soft and benign Musculoskeletal: No swelling, No contractures Integumentary: No breakdown, Other (geneneralized weakness) Neurological: Normal speech, Normal strength at 5/5 x4 extr, Cranial nerves 3-12 intact Hospital Course: 83 yrs old Female with a past medical history Back pain; atrial fibrillation, hyperlipidemia; Hypertension; Hypothyroidism; shingles (Hypothyroidism); presents to the emergency room with complaints of shortness of breath that started 2 days ago. Noted to have COVID-pneumonia, treated with IV antibiotics, Paxlovid, oxygen, nebulizers. Cough, shortness of breath improved, weaned to room air, she is tolerating diet, plan to discharge home, follow-up with primary care in 1 week. Assessment COVID-19 positive test (U07.1, COVID-19) with Acute Pneumonia (J12.89, Other viral pneumonia) continue Paxil bid, antibiotic after discharge as directed Resume appropriate home meds for atrial fibrillation, hypertension, hyperlipidemia, hypothyroid Continue home medicines as previously prescribed GOAL: Clear understanding of disease process INSTRUCTIONS: Physician Discharge Instructions: -Follow-up with PCP in 1 to 2 weeks -Please call Dr. Ching at [phone] if any questions regarding hospital stay -Please call nursing station at [phone] if any nursing or medication questions -Return to the emergency room if symptoms worsen Diet: ADA, low sodium Activity: Fall precautions Vital Signs/Physical Exam: Temp Pulse Resp BP Pulse Ox 97.7 F 88 18 146/72 H 96 04/03/24 04:00 04/03/24 04:00 04/03/24 04:00 04/03/24 04:00 04/03/24 04:00 Laboratory Data at Discharge: WBC 11.90 thou/uL (4.3-10.9) H 04/01/24 13:40 Hgb 13.4 g/dL (12.0-15.0) 04/01/24 13:40 Hct 41.0 % (36.0-45.0) 04/01/24 13:40 Plt Count 239 thou/uL (152-406) 04/01/24 13:40 PT 11.5 SECONDS (9.4-12.5) 04/01/24 13:40 INR 1.03 04/01/24 13:40 Sodium 139 mEq/L (136-145) 04/02/24 06:59 Potassium 3.5 mEq/L (3.5-5.1) D 04/02/24 06:59 BUN 17 mg/dL (7-18) 04/02/24 06:59 Creatinine 1.16 mg/dL (0.55-1.02) H 04/02/24 06:59 Glucose 141 mg/dL (74-106) H 04/02/24 06:59 Magnesium 2.2 mg/dL (1.6-2.4) 04/02/24 06:59 Total Bilirubin 0.4 mg/dL (0.2-1.0) 04/02/24 06:59 AST 15 U/L (15-37) 04/02/24 06:59 ALT < 14 U/L (13-56) 04/02/24 06:59 Alkaline Phosphatase 69 U/L (45-117) 04/02/24 06:59 Home Medications: Alprazolam [Alprazolam ER] 1 mg PO BEDTIME 04/05/12 Enalapril Maleate 10 mg PO DAILY 04/05/12 Lovastatin 20 mg PO DAILY 04/05/12 estradioL [Estradiol] 0.5 mg PO DAILY 04/05/12 pyRIDostigmine bromide [Mestinon*] 60 mg PO TID 04/05/12 Iron 65 mg PO DAILY 6PM 02/01/16 Montelukast [Singulair*] 10 mg PO DAILY 6PM 02/01/16 Hydrocodone 10/APAP 325 [[place] 10/325*] 1 tab PO Q4HR PRN 09/12/18 Aspirin Chewable [Aspirin Chewable*] 81 mg PO DAILY tab.chew 05/10/22 Atorvastatin Calcium [Lipitor] 40 mg PO BEDTIME tab 05/10/22 Gabapentin 300 mg PO TID 05/10/22 Levothyroxine [Synthroid*] 125 mcg PO [id number] 05/10/22 Meloxicam [Mobic] 15 mg PO DAILY 05/10/22 Albuterol Inhaler [Ventolin Inhaler*] 2 puff IH Q6H PRN 10 Days #1 inh 04/03/24 Benzonatate [Tessalon Perle] 100 mg PO TID 10 Days #30 cap 04/03/24 Melatonin 10 mg PO BEDTIME 04/03/24 Nirmatrelvir/Ritonavir [Paxlovid 150-100 mg Dose Pack] 1 each PO BID 3 Days #1 packet 04/03/24 Pantoprazole [Protonix Tab*] 40 mg PO ACB tab 04/03/24 estradioL [Estradiol] 0.5 mg PO DAILY 04/03/24 levoFLOXacin [Levaquin] 500 mg PO DAILY 3 Days #3 tab 04/03/24 Guaifen W/Codeine Syrup [ROBITUSSIN A-C Syrup] 10 ml PO Q12H PRN #150 ml 04/04/24 New Medications: levoFLOXacin [Levaquin] 500 mg PO DAILY 3 Days #3 tab Nirmatrelvir/Ritonavir [Paxlovid 150-100 mg Dose Pack] 1 each PO BID 3 Days #1 packet Guaifen W/Codeine Syrup [ROBITUSSIN A-C Syrup] 10 ml PO Q12H PRN #150 ml PRN Reason: Cough Benzonatate [Tessalon Perle] 100 mg PO TID 10 Days #30 cap Albuterol Inhaler [Ventolin Inhaler*] 2 puff IH Q6H PRN 10 Days #1 inh PRN Reason: Shortness Of Breath Physician Discharge Instructions: 83 yrs old Female with a past medical history Back pain; atrial fibrillation, hyperlipidemia; Hypertension; Hypothyroidism; presents to the emergency room with complaints of shortness of breath that started 2 days ago. Noted to have COVID-pneumonia, treated with IV antibiotics, Paxlovid, oxygen, nebulizers. Cough, shortness of breath improved, weaned to room air, she is tolerating diet, plan to discharge home, follow-up with primary care in 1 week. New prescription Paxlovid take as directed for 3 days, throw remainder packet away Albuterol inhaler 1 to 2 puffs every 6 hours as needed for cough shortness of breath Levaquin take 1 tab daily for 3 days take until gone Tessalon Perles for cough take 1 tablet 3 times daily as needed for cough Assessment COVID-19 positive test (U07.1, COVID-19) with Acute Pneumonia (J12.89, Other viral pneumonia) continue Paxil bid, antibiotic after discharge as directed Resume appropriate home meds for atrial fibrillation, hypertension, hyperlipidemia, hypothyroid Continue home medicines as previously prescribed GOAL: Clear understanding of disease process INSTRUCTIONS: Physician Discharge Instructions: -Follow-up with PCP in 1 to 2 weeks -Please call Dr. Ching at [phone] if any questions regarding hospital stay -Please call nursing station at [phone] if any nursing or medication questions -Return to the emergency room if symptoms worsen Diet: ADA, low sodium Activity: Fall precautions Diet: AHA Activity: Fall precautions Followup: Aaliyah Marcus [Primary Care Provider] - Time spent managing pt's care (in minutes): 55
[2024-04-03] MEDS: BENZONATATE 100 MG CAP PO PRN (08:32)
[2024-04-03] MEDS: GUAIFENESIN/CODEINE 5ML UCUP PO PRN (08:32)
[2024-04-03] MEDS: ESTRADIOL 1 MG PO SCH (08:38)
[2024-04-03 11:18] LABS: AST/SGOT 19 U/L (15-37); Albumin/Globulin Ratio 0.8 (1.1-1.8); Alkaline Phosphatase 65 U/L (45-117); Anion Gap 8.8 mEq/L (5.0-15.0); BUN Blood Urea Nitrogen 16 mg/dL (7-18); Bicarbonate 24 mEq/L (21-32); Bilirubin Total 0.5 mg/dL (0.2-1.0); Globulin 3.6 g/dL (2.3-3.5); Glomerular Filtration Rate 51 ml/min (=/>90); Glucose Level 107 mg/dL (74-106); Magnesium 2.2 mg/dL (1.6-2.4); Potassium 3.8 mEq/L (3.5-5.1); Protein, Total 6.6 g/dL (6.4-8.2); Sodium Level 137 mEq/L (136-145)
[2024-04-03 11:19] LABS: ALT/SGPT < 14 U/L (13-56)
--- NOTE | 2024-04-03 13:18 | EKG ---
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
--- NOTE | 2024-04-03 13:24 | EKG ---
Test Date: 2024-04-01 Test Time: 13:30:14 [employer] Oil Order Filler: Rain OTTO MEASUREMENT RESULTS: Intervals: Rate: 97 SC: 166 QRSD: 84 QT: 332 QTc: 421 [place]: P: 77 SC: 166 QRS: 16 T: 68 INTERPRETIVE STATEMENTS: Sinus rhythm with occasional premature ventricular complexes Low voltage QRS Borderline ECG Compared to ECG 09/28/2021 17:32:32 Ventricular premature complex(es) now present Myocardial infarct finding no longer present Electronically Signed On 04-03-24 13:15:58 CDT by Tom Watson
[2024-04-03 17:40] VITALS: BMI 30.6
--- NOTE | 2024-04-03 17:46 | P.PN ---
Date of Service: 04/03/24 Subjective Reports sinus congestion, Sudafed ordered, Review of Systems PER HPI Physical Examination - Physical Exam General: Alert, oriented x 3 HEENT: Atraumatic, Normocephalic, sinus congestion Neck: Supple, 2+ carotid pulse no bruit Respiratory: Clear to auscultate, unlabored, Other (mild intermittent, productive cough) Cardiovascular: Normal pulses, Regular rate/rhythm Capillary refill: <2 Seconds Gastrointestinal: Normal bowel sounds, nontender Musculoskeletal: No swelling, No contractures Integumentary: No breakdown, Other (geneneralized weakness) Neurological: Normal speech, Normal strength at 5/5 x4 extr, Assessment and Plan - Plan Assessment plan Acute hypoxic respiratory failure secondary to pneumonia/COVID improved Weakness Fever, unspecified Hypoxemia Dyspnea, unspecified Pneumonia due to other specified bacteria Pneumonia due to SARS-associated coronavirus IV antibiotics, nebs, Paxlovid Trend WBC presents to the emergency room with complaints of shortness of breath that started 2 days ago. She reports generalized weakness, productive cough. She reports flulike symptoms, low-grade fever. ER evaluation BP 142 / 85; Pulse 89; Resp 20; Temp 99.4; Pulse Ox 100% on R/A;, EKG s 97 beats/min. Rhythm is regular. QRS [place] is Normal. [place] interval is normal. QRS interval is normal. QT interval is normal. No Q waves. T waves are Normal. No ST changes noted. Clinical impression: Abnormal EKG without significant change and No evidence of ischemia. WBCs 11.90, CTA of the chest MPRESSION: No evidence of acute central pulmonary emboli.Nodular opacities in the right middle lobe and peripheral right lower lobe, and to lesser extent the left lingula nonspecific, but may represent an infectious or inflammatory process. acute kidney injury, creatinine unknown baseline improved Gentle IV fluids unknown baseline lactate normal, 1.28, estimated GFR 42 Chronic back pain History atrial fibrillation hyperlipidemia Hypertension Hypothyroidism shingle (Hypothyroidism) Resume appropriate home meds Fall precautions Full code DVT Lovenox Diet cardiac Disposition Home independent prior Discharge Plan: Home - Advance Directives Does patient have a Living Will: No Does patient have a Durable POA for Healthcare: No - Code Status/Comfort Care Code Status: Full Code Critical Care: No Time Spent Managing Pts Care (In Minutes): 35
[2024-04-03] MEDS: MELATONIN 5 MG TABLET PO SCH (21:00)
[2024-04-04 05:18] LABS: Anion Gap 6.7 mEq/L (5.0-15.0); Potassium 3.7 mEq/L (3.5-5.1)
[2024-04-04 05:19] LABS: Albumin 2.9 g/dL (3.4-5.0); Albumin/Globulin Ratio 0.8 (1.1-1.8); Bilirubin Total 0.4 mg/dL (0.2-1.0); Globulin 3.6 g/dL (2.3-3.5); Magnesium 2.3; Protein, Total 6.5 g/dL (6.4-8.2)
[2024-04-04] MEDS ORDERED: ACETAMIN/CAFFEINE/BUTALB TAB PO SCH ×2 (07:30→10:00)
[2024-04-04 09:08] VITALS: O2SAT 95
[2024-04-04] MEDS: PSEUDOEPHEDRINE 30 MG TAB PO PRN (09:16)
[2024-04-04 10:29] VITALS: BP 149/80; TEMP 98.3
[2024-04-04] MEDS ORDERED: ACETAMIN/CAFFEINE/BUTALB TAB PO PRN (11:30)
== END 2024-04-04 12:26 | disposition home or self-care (01) | DRG 177 ==
LOC: ER 13:01 → ERHOLD 16:20 → 2ND 16:38
PROVIDERS: ADMIT Hospitalist; ATTEND Hospitalist
DX: U07.1 COVID-19 (principal); J12.82 Pneumonia due to coronavirus disease 2019; J96.01 Acute respiratory failure with hypoxia; N17.9 Acute kidney failure, unspecified; I10 Essential (primary) hypertension; E03.9 Hypothyroidism, unspecified; E78.5 Hyperlipidemia, unspecified; I48.91 Unspecified atrial fibrillation; E66.9 Obesity, unspecified; G89.29 Other chronic pain; M54.9 Dorsalgia, unspecified; K21.9 Gastro-esophageal reflux disease without esophagitis; B02.9 Zoster without complications; Z60.2 Problems related to living alone; Z79.82 Long term (current) use of aspirin; Z68.24 Body mass index [BMI] 24.0-24.9, adult; Z90.49 Acquired absence of other specified parts of digestive tract; Z79.890 Hormone replacement therapy; Z96.652 Presence of left artificial knee joint; Z87.891 Personal history of nicotine dependence; Z79.899 Other long term (current) drug therapy; Z90.710 Acquired absence of both cervix and uterus
CPT/HCPCS: 0241U; 36415; 71045; 71275; 80048; 80053; 80076; 83605; 83735; 83880; 84484; 85025; 85610; 87040; 93005; 96374; 96375; 99285; J0692; J0696; J7030; J7050; J7614; J7644; J8499; Q9967